=== PATIENT | male | born 1940 | race Caucasian/White ===

== ENCOUNTER 2020-02-22 21:08 | Emergency (ER) | payer OTHER ==
[2020-02-22 21:22] VITALS: BP 145/76; PULSE 81; TEMP 98.1; BMI 25.8
--- NOTE | 2020-02-23 06:56 | PDOC ---
Documentation entered by Carmen Friedman SCRIBE, acting as scribe for Meghna Phillips MD. Meghna Phillips MD: This documentation has been prepared by the aayushibgrover, Carmen Friedman SCRIBE, under my direction and personally reviewed by me in its entirety. I confirm that the documentation accurately reflects all work, treatment, procedures, and medical decision making performed by me. History of Present Illness - General Chief Complaint: Pain Stated Complaint: groin pain Time Seen by Provider: 02/22/20 21:20 History Source: Patient Exam Limitations: No Limitations - History of Present Illness Initial Comments: 02/22/20 21:53 The patient is an 79-year-old male who presents to the emergency department with right groin pain. The patient reports he was seen in the ED on 02/18 for similar right groin pain, the patient reports he was given pain medication and had a CT abdomen/pelvis which was significant for fat-containing, bilateral inguinal hernia. The patient reports he felt better and was discharged home. The patient reports Saturday he was feeling fine, however, Saturday afternoon he felt mild pain to the right groin, which went away and returned today afternoon associated with the hernia bulging, which the patient was able to reduce himself. The patient reports the pain persisted to the evening, promoting the ED visit. PAST MEDICAL HISTORY: BPH and inguinal hernia. PAST SURGICAL HISTORY: Cholecystectomy FAMILY HISTORY: no pertinent history SOCIAL HISTORY: Pt lives along and is retired. MEDICATIONS: reviewed ALLERGIES: As per nursing notes PCP: Follow[facility] at [facility] Review of system: General: No fevers or chills, no weakness, no weight loss HEENT: No change in vision. No sore throat. No ear pain CardioVascular: No chest pain or shortness of breath Respiratory:No cough, or wheezing. Gastrointestinal: no nausea, vomiting, diarrhea or constipation, No rectal bleeding Genitourinary: +right groin pain. No dysuria, hematuria, or frequency Musculoskeletal: No joint or muscle pain or swelling Neurologic: No headache, vertigo, dizziness or loss of consciousness Psychiatric: nor depression Skin: No rashes or easy bruising Endocrine: no increased thirst or abnormal weight change Allergic: no skin or latex allergy All other systems reviewed and normal Physical exam: GENERAL: The patient is awake, alert, and fully oriented, in no acute distress. HEAD: Normal with no signs of trauma. EYES: Pupils equal, round and reactive to light, extraocular movements intact, sclera anicteric, conjunctiva clear. : +right inguinal area: there is a palpable hernia, easily reducible with gentle pressure. Pain resolved after the gentle reduction of the hernia. EXTREMITIES: Normal range of motion, no edema. NEUROLOGICAL: Normal speech, normal gait. PSYCH: Normal mood, normal affect. SKIN: Warm, Dry, normal turgor, no rashes or lesions noted. Assessment and plan: This is an 79-year-old male who has a right inguinal hernia that is intermittently bulging out. I was able to easily reduce the hernia and patient's discomfort resolved. Patient was told to buy a hernia truss and follow-up with a surgeon this week. Past History - Medical History Allergies/Adverse Reactions: Allergies Allergy/AdvReac Type Severity Reaction Status Date / Time No Known Allergies Allergy Verified 02/22/20 21:16 Home Medications: Ambulatory Orders NK [No Known Home Medication] 02/19/20 CVA: No COPD: No - Surgical History Cholecystectomy: Yes - Psycho-Social/Smoking History Smoking History: Never smoked Have you smoked in the past 12 months: No Information on smoking cessation initiated: No - Substance Abuse Hx (Audit-C & DAST Scrn) How often the patient has a drink containing alcohol: Never Score: In Men: 4 or > Positive; In Women: 3 or > Positive: 0 Screen Result (Pos requires Nsg. Audit-10AR): Negative *Physical Exam - Vital Signs Last Vital Signs Temp Pulse Resp BP Pulse Ox 98.1 F 81 16 145/76 100 02/22/20 21:18 02/22/20 21:18 02/22/20 21:18 02/22/20 21:18 02/22/20 21:18 Discharge - Discharge Information Problems reviewed: Yes Clinical Impression/Diagnosis: Right inguinal pain, Inguinal hernia Condition: Stable Disposition: HOME - Admission No - Follow up/Referral Referrals: Sheng Coker MD [Staff Physician] - - Patient Discharge Instructions Additional Instructions: Call Dr. Nixon in the morning and get an appointment for follow-up when you call Dr. Coker tell them you are here in the emergency department twice for a hernia that was reduced. Purchase a hernia truss and wear it. If the hernia comes out lay down and put gentle pressure on it to reduce it. Return to the emergency department immediately with ANY new, persistent or worsening symptoms. Continue any medications as previously prescribed by your physician. You should follow up with your primary doctor as soon as possible regarding today's emergency department visit. . Please make sure your doctor reviews the results of your emergency evaluation. Thank you for coming to the Emergency Department today for your care. It was a pleasure to see you today. Please note that your evaluation is INCOMPLETE until you follow-up with your doctor. - Post Discharge Activity
== END 2020-02-22 22:10 | disposition home or self-care (01) ==
LOC: FER 21:08
DX: K40.90 Unilateral inguinal hernia, without obstruction or gangrene, not specified as recurrent (principal)
CPT/HCPCS: 99283-25; U0003

== ENCOUNTER 2020-03-09 05:48 | Day surgery (SDC) | payer OTHER ==
--- NOTE | 2020-02-26 10:07 | HP ---
DATE OF ADMISSION: 03/02/2020 REASON FOR ADMISSION: Bilateral inguinal hernias. HISTORY: This is an 79-year-old gentleman who was recently seen at [facility] for an incarcerated right inguinal hernia. He was subsequently reduced, and he also re-presented within a short period of time after that reduction. He underwent a CAT scan of the abdomen and pelvis that demonstrated bilateral fat-containing inguinal hernias as well as a large hiatal hernia (patient asymptomatic from his hiatal hernia). He is here today to undergo hernia repair. Patient denies a change in bowel and urine habits. He has had no nausea, no vomiting PAST MEDICAL HISTORY: He denies coronary artery disease, hypertension, and diabetes. PAST SURGICAL HISTORY: He has had a cholecystectomy (open) in the . ALLERGIES: None. MEDICATIONS: None. SOCIAL HISTORY: He does not smoke, does not drink. No history of drug use. PHYSICAL EXAMINATION: Patient examined in the erect and supine position. He has bilateral inguinal hernias. The clinical findings for these hernias are paucity of findings. The scrotum and testicles within normal limits. Testicles slightly atrophic bilaterally. He has a right upper quadrant scar. The remainder of the abdominal examination is unremarkable. IMPRESSION/PLAN: Bilateral inguinal hernias, hiatal hernia: This is an 79-year-old gentleman who was symptomatic from his right inguinal hernia. CT scan demonstrates 2 hernias. Given the fact that he acutely incarcerated within a short period of time x2, I would recommend repairing these hernias at this time. This will be done laparoscopically. Mesh will be used as well. I have discussed the various surgical approaches, mesh and without mesh, with this gentleman. He understands that he is having bilateral laparoscopic inguinal hernias with mesh. If the surgery cannot be done laparoscopically, he will be converted to an open right inguinal hernia repair. The indications, alternatives, and complications of the procedure were discussed at length. Questions have been answered. With regard to his hiatal hernia, I have discussed the pros and cons of further evaluating this and consideration for repair, but given the fact that he is asymptomatic and he is 79 years old, he has opted not to proceed with any intervention, and therefore no further workup is needed at this point. JOVAN AGUERO M.D. [id number] MTDAntwan
[2020-03-08 12:57] VITALS: BMI 25.1
[2020-03-09] MEDS ORDERED: MIDAZOLAM HCL 2 MG/2 ML SINGLE DOSE VIAL ONE (06:50)
[2020-03-09] MEDS ORDERED: BUPIVACAINE HCL/PF 0.5% (5 MG/ML) 30 ML VIAL IJ ONE (06:50)
[2020-03-09] MEDS ORDERED: TAMSULOSIN HCL 0.4 MG CAP ONE (06:54)
[2020-03-09] MEDS ORDERED: LIDOCAINE HCL/PF 2% SDV 5ML VIAL ONE (07:26)
[2020-03-09] MEDS ORDERED: ceFAZolin SODIUM 1 GM VIAL ONE (07:26)
[2020-03-09] MEDS ORDERED: PROPOFOL 20 ML ONE (07:27)
[2020-03-09] MEDS ORDERED: ROCURONIUM BROMIDE 50 MG/5 ML SYRINGE ONE (07:27)
[2020-03-09] MEDS ORDERED: SUCCINYLCHOLINE CHLORIDE 200 MG/10 ML SYRINGE ONE (07:27)
[2020-03-09] MEDS ORDERED: DEXAMETHASONE SOD PHOSPHATE/PF 10 MG/ML SDV ONE (07:42)
[2020-03-09] MEDS ORDERED: DEXAMETHASONE SOD PHOSPHATE 4 MG/1 ML VIAL ONE (08:10)
[2020-03-09] MEDS ORDERED: ONDANSETRON 4 MG/2 ML VIAL ONE (08:10)
[2020-03-09] MEDS ORDERED: NEOSTIGMINE METHYLSULFATE 0.5 MG/ML - 10 ML MDV ONE (08:38)
[2020-03-09] MEDS ORDERED: GLYCOPYRROLATE 0.2 MG/1 ML VIAL ONE (08:39)
[2020-03-09 10:26] VITALS: TEMP 98.2
[2020-03-09] MEDS ORDERED: oxyCODONE HCL 5 MG TABLET ONE (10:45)
[2020-03-09] MEDS ORDERED: oxyCODONE HCL 5 MG TABLET PO PRN (11:12)
[2020-03-09] MEDS ORDERED: ONDANSETRON 4 MG/2 ML VIAL IVPUSH PRN (11:12)
[2020-03-09] MEDS ORDERED: LACTATED RINGERS SOLUTION 1,000 ML IV SCH (11:15)
[2020-03-09 14:36] VITALS: BP 158/84; PULSE 56
== END 2020-03-09 14:15 | disposition home or self-care (01) ==
LOC: FASU 05:48
PROVIDERS: ATTEND Surgery
PROC: 0YUA4JZ Supplement Bilateral Inguinal Region with Synthetic Substitute, Percutaneous Endoscopic Approach (ICD-10-PCS; principal; 2020-03-09 08:18)
DX: K40.20 Bilateral inguinal hernia, without obstruction or gangrene, not specified as recurrent (principal)
CPT/HCPCS: 94760

== ENCOUNTER 2020-03-14 13:11 | Inpatient (IN) | payer OTHER ==
--- NOTE | 2020-03-14 13:29 | PDOC ---
Rapid Medical Evaluation Time Seen by Provider: 03/14/20 13:25 Medical Evaluation: Allergies Allergy/AdvReac Type Severity Reaction Status Date / Time No Known Allergies Allergy Verified 03/14/20 13:25 03/14/20 13:26 Pt presents for evaluation of weakness and falling starting last night. Exam: In a wheelchair NAD, breathing comfortably on RA Orders: labs, EKG, IV Pt to proceed to the ER for further evaluation Discharge Disposition - Diagnosis Weakness - Referrals - Patient Instructions - Post Discharge Activity
[2020-03-14 14:36] LABS: BASO % 0.4 % (0-2.0); EOS % 0.2 % (0-4.5); HEMATOCRIT 35.1 % (35.4-49); HEMOGLOBIN 11.8 GM/dL (11.7-16.9); LYMPH % 3.6 % (8-40); MCHC 33.5 g/dl (32.0-35.9); MEAN CELL VOLUME 89.6 fl (80-96); MEAN PLT VOLUME 8.4 fl (7.5-11.1); MONO % 9.9 % (3.8-10.2); NEUT % 85.9 % (42.8-82.8); PLATELET COUNT 167 K/MM3 (134-434); RBC 3.92 M/mm3 (4.00-5.60); RDW 14.4 % (11.9-15.9); WHITE BLOOD COUNT 10.8 K/mm3 (4.0-10.0)
[2020-03-14 14:44] LABS: INR 1.24 (0.83-1.09); PROTHROMBIN TIME (PATIENT) 14.7 SEC (9.7-13.0)
--- NOTE | 2020-03-14 14:46 | PDOC ---
History of Present Illness - General Chief Complaint: Weakness Stated Complaint: FALL/PAIN Time Seen by Provider: 03/14/20 13:25 History Source: Patient Exam Limitations: No Limitations - History of Present Illness Initial Comments: 03/14/20 14:23 HPI: 79 yo M pmh BPH, recent ventral hernia repair (POD2?), presenting with multiple falls, generalized weakness, and difficulty collecting his thoughts for 1 day. Patient lives alone, reports several falls but cannot explain where he struck the ground, endorses "lots of pain" but cannot explain where and says he can't quantify it right now. Neighbors found him on the floor and helped him up and he walked in through triage. Reports diffuse weakness and unsteady gait - "I don't think I could walk right now." Denies head trauma or LOC, denies chest pain or palpitations, denies urinary symptoms, denies fevers or chills, nausea or vomiting. Taking an unknown pain medication post op every 4 hours. All: NKDA Meds: Per chart PSH: Hernia repair PMH: BPH SHx: Lives at home alone Past History - Travel History Traveled outside of the country in the last 30 days: No Close contact w/someone who was outside of country & ill: No - Medical History Allergies/Adverse Reactions: Allergies Allergy/AdvReac Type Severity Reaction Status Date / Time No Known Allergies Allergy Verified 03/14/20 13:25 Home Medications: Ambulatory Orders Unobtainable 03/14/20 Anemia: No Asthma: No Cancer: No Cardiac Disorders: No CVA: No COPD: No CHF: No Dementia: No Diabetes: No GI Disorders: No Disorders: Yes (BPH) HTN: No Hypercholesterolemia: No Liver Disease: No Seizures: No Thyroid Disease: No - Surgical History Abdominal Surgery: No Appendectomy: No Cardiac Surgery: No Cholecystectomy: Yes Lung Surgery: No Neurologic Surgery: No Orthopedic Surgery: No - Immunization History Immunization Up to Date: Yes - Psycho-Social/Smoking History Smoking History: Never smoked Have you smoked in the past 12 months: No - Substance Abuse Hx (Audit-C & DAST Scrn) How often the patient has a drink containing alcohol: Never Score: In Men: 4 or > Positive; In Women: 3 or > Positive: 0 Screen Result (Pos requires Nsg. Audit-10AR): Negative In the last yr the pt used illegal drug/Rx for NonMed reason: No Score: Yes response is considered Positive: 0 Screen Result (Positive result requires Nsg. DAST-10): Negative Review of Systems - Review of Systems Able to Perform ROS?: Yes (Patient answers only some) Is the patient limited Lithuanian proficient: Yes Constitutional: Yes: Weakness. No: Chills, Fever HEENTM: No: Recent change in vision, Nose Pain, Tinnitus, Hearing Loss Respiratory: No: Cough, Shortness of Breath Cardiac (ROS): Yes: Edema. No: Chest Pain, Lightheadedness, Palpitations, Chest Tightness ABD/GI: No: Constipated, Diarrhea, Nausea, Vomiting : No: Burning, Dysuria, Frequency Musculoskeletal: Yes: Back Pain, Muscle Pain, Neck Pain Integumentary: Yes: Bruising. No: Pruritus, Rash Neurological: No: Headache, Numbness, Tingling, Weakness Psychiatric: No: Stressors, Change in Appetite Endocrine: No: Increased Thirst, Increased Urine, Change in Weight Hematologic/Lymphatic: No: Anemia, Blood Clots, Easy Bleeding All Other Systems: Reviewed and Negative *Physical Exam - Vital Signs Last Vital Signs Temp Pulse Resp BP Pulse Ox 98.2 F 92 H 18 123/87 95 03/14/20 13:25 03/14/20 13:25 03/14/20 13:25 03/14/20 13:25 03/14/20 13:25 - Physical Exam 03/14/20 15:02 Vitals reviewed, AFVSS GEN: Appears unwell, slumped to the side, slow movements and thoughts. Appears stated age, NAD. AAOx3. HEENT: NCAT, EOMI, PERRL. Sclera anicteric, non-injected. No facial asymmetry. Moist mucous membranes. Normal voice. Trachea midline. CV: RRR, S1/S2, no murmurs / rubs / gallops appreciated. LUNG: CTABL, normal work of breathing. No wheezes, rales, rhonchi. No cough. Speaking full sentences. GI: Soft, NTND, +BS, no guarding, no rebound. No masses. EXTREMITIES: 2+ distal pulses. No clubbing / cyanosis. 2+ pitting edema to the knees bilaterally. No gross deformity in any extremity. SKIN: Warm, dry, no rashes appreciated, non-jaundiced. Ecchymosis around hernia repair site and small old/recent abrasion on right shoulder. PSYCH: Normal mood and affect. Cooperative and appropriate. Slow thoughts, states he is having trouble getting them together and processing questions and answers. NEURO: CN 2-12 intact. Moving all extremities equally with normal strength and sensation. Strength 5+ biceps, triceps, intrinsic hand muscles, hip flexors / extensors / foot dorsiflexion / plantarflexion. Patient is slumped to the right, can sit upright but leans over again (pain vs general weakness? difficulty specifying) Sensation normal throughout to light touch Reflexes not assessed Romberg negative [id number] normal (+No dysmetria) right side slower but accurate Gait unwitnessed, patient currently unwilling to attempt ambulation ED Treatment Course - LABORATORY CBC & Chemistry Diagram: 03/14/20 14:00 03/14/20 14:00 Medical Decision Making - Medical Decision Making 03/14/20 15:00 79 yo M pmh BPH, recent ventral hernia repair (POD2?), presenting with multiple falls, generalized weakness, and difficulty collecting his thoughts for 1 day. History difficult to obtain due to clinical condition. Exam notable for afebrile, stable vitals (maybe relative hypotension and tachycardia), slow movements, leaning to the right, normal neurologic exam but disorganized thoughts, LE edema bilaterally, diffuse abdominal and chest wall tenderness, non-tender surgical site / no signs of soft tissue infection, alert and oriented x3. Together concerning for infectious, traumatic, post-surgical, metabolic, vascular causes. DDX: encephalopathy NOS, UTI / pyelo, intra-abdominal infection (deep site infection / abscess), medication effect from post-op pain medications (although normal pupils), syncope (dysrhythmia), r/o CVA. Patient lives alone, and is unsafe for discharge, regardless of the results of the following he will require admission. - CBC, CMP, Coags, Lactate, BCx, UA, UCx, COVID - NCHCT, Cervical spine, Chest / Abdomen / Pelvis after renal function - EKG Anticipated Dispo Admit (surgery vs medicine pending work-up) 03/14/20 16:[address] Kellogg, appreciate recs. Renal/Bladder US. Grady insert with clamp at 700-800ccs then wait [address] scans all changed to non-contrast 03/14/20 17:48 Plan for non-emergent urology consult, surgical evaluation Discharge - Discharge Information Problems reviewed: Yes Clinical Impression/Diagnosis: Weakness Acute renal failure Qualifiers: Acute renal failure type: unspecified Qualified Code(s): N17.9 - Acute kidney failure, unspecified Condition: Guarded - Admission Yes - Follow up/Referral - Patient Discharge Instructions - Post Discharge Activity
[2020-03-14] MEDS ORDERED: ACETAMINOPHEN 1000 MG/100 ML VIAL (NON FORMULARY) IVPB ONE (14:47)
[2020-03-14] MEDS ORDERED: ACETAMINOPHEN INJECTION 100 ML IVPB ONE (15:05)
[2020-03-14 15:06] LABS: BILIRUBIN,TOTAL 0.8 mg/dL (0.2-1); BLOOD UREA NITROGEN 83.9 mg/dL (7-18); CALCIUM 8.4 mg/dL (8.5-10.1); CREATININE 6.7 mg/dL (0.55-1.3); MAGNESIUM 2.6 mg/dL (1.8-2.4); POTASSIUM 3.8 mmol/L (3.5-5.1); TOT PROT 6.7 g/dl (6.4-8.2)
[2020-03-14] MEDS ORDERED: SODIUM CHLORIDE 0.9% 500 ML INFUS.BAG IV ONE ×2 (15:35→15:38)
--- NOTE | 2020-03-14 16:03 | PDOC ---
Documentation entered by Gi Chapa SCRIBE, acting as scribe for Chance Pierre MD. Chance Pierre MD: This documentation has been prepared by the aayushibEduard ness Ana, SCRIBE, under my direction and personally reviewed by me in its entirety. I confirm that the documentation accurately reflects all work, treatment, procedures, and medical decision making performed by me. Attending Attestation - Resident Resident Name: DereckEric - ED Attending Attestation I have performed the following: I have examined & evaluated the patient, The case was reviewed & discussed with the resident, I agree w/resident's findings & plan, Exceptions are as noted - HPI HPI: 03/14/20 14:41 Patient is an 79 year old male with a significant past medical history of BPH and recent ventral hernia repair, who presents to the ED with multiple falls, generalized weakness, and difficulty collecting his thoughts x1 day. Patient's neighbors found patient on the floor and brought him into ER. Patient stated he is in "a lot of pain" but cannot describe the pain and reports falls but cannot recall how or where they occurred. Patient denies: head trauma, loss of consciousness, fever, chills, nausea, vomiting. chest pain palpitations, any urinary issues, or any other related symptoms. Allergies: NKDA Patient lives alone at home. - Physicial Exam PE: 03/14/20 15:12 See resident exam. - Medical Decision Making 03/14/20 16:09 79 M with weakness, multiple falls. No focal neuro deficits on exam. - Labs - CT head - Likel admit Discharge - Discharge Information Problems reviewed: Yes Clinical Impression/Diagnosis: Weakness, Falls Acute renal failure Qualifiers: Acute renal failure type: unspecified Qualified Code(s): N17.9 - Acute kidney failure, unspecified Condition: Guarded - Follow up/Referral - Patient Discharge Instructions - Post Discharge Activity
--- NOTE | 2020-03-14 18:06 | CONSULT ---
Consult Consult Specialty:: Nephrology Reason for Consultation:: MAXWELL - History of Present Illness Chief Complaint: weakness and confusion History of Present Illness: Pt is an 79 year old male with pmhx of ventral hernia repair pod2 who presents to the ER with falls and confusion. 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 He denies history of ckd. He says that he has been taking nsaids. I was called to evaluate him. Chan was placed and he put out about 1700 cc of urine so far. There was bilateral hydro on the ultrasound. He denies shortness of breath. he does complain of lower ext edema. - History Source History Provided By: Patient, Medical Record - Smoking History Smoking history: Never smoked Have you smoked in the past 12 months: No Home Medications - Allergies Allergies/Adverse Reactions: Allergies Allergy/AdvReac Type Severity Reaction Status Date / Time No Known Allergies Allergy Verified 03/14/20 13:25 - Home Medications Home Medications: Ambulatory Orders Unobtainable 03/14/20 Family Medical History Family History: Denies Review of Systems - Review of Systems Constitutional: reports: Loss of Appetite, Weakness Eyes: reports: No Symptoms HENT: reports: No Symptoms Neck: reports: No Symptoms Cardiovascular: reports: No Symptoms Respiratory: reports: No Symptoms Gastrointestinal: reports: No Symptoms Genitourinary: reports: No Symptoms Musculoskeletal: reports: No Symptoms Integumentary: reports: No Symptoms Neurological: reports: No Symptoms Endocrine: reports: No Symptoms Physical Exam Vital Signs: Vital Signs Temperature 98.2 F 03/14/20 13:25 Pulse Rate 92 H 03/14/20 13:25 Respiratory Rate 18 03/14/20 13:25 Blood Pressure 123/87 03/14/20 13:25 O2 Sat by Pulse Oximetry (%) 95 03/14/20 13:25 Constitutional: Yes: Calm Eyes: Yes: Conjunctiva Clear HENT: Yes: Atraumatic Cardiovascular: Yes: S1, S2 Respiratory: Yes: CTA Bilaterally Gastrointestinal: Yes: Soft Renal/: Yes: Chan Present, Scrotal Edema, Other (echymosis on scrotum) Edema: Yes Edema: LLE: 1+, RLE: 1+ Neurological: Yes: Confusion Labs: CBC, BMP 03/14/20 14:00 03/14/20 14:00 Imaging - Results Ultrasound: Report Reviewed Problem List - Problems (1) Acute renal failure Code(s): N17.9 - ACUTE KIDNEY FAILURE, UNSPECIFIED Qualifiers: Acute renal failure type: unspecified Qualified Code(s): N17.9 - Acute kidney failure, unspecified (2) Weakness Code(s): R53.1 - WEAKNESS Assessment/Plan Laboratory Tests 03/14/20 03/14/20 14:00 14:00 WBC 10.8 H Hgb 11.8 Sodium 135 L Potassium 3.8 Chloride 101 Carbon Dioxide 18 L Anion Gap 16 BUN 83.9 H Creatinine 6.7 H Impression 1. MAXWELL 2. s/p hernia repair 3. hydronephrosis 4. urinary obstruction 5. nsaid use Plan - maintain chan, I just clamped it, unclamp in one hour, spoke to nurse - repeat labs in am - will start fluids - monitor for post obstructive diuresis - urology eval - surgery follow up - avoid nsaids - discussed with ER team - follow ct scan results
[2020-03-14] MEDS ORDERED: SODIUM CHLORIDE 1,000 ML IV SCH (18:15)
[2020-03-14 18:22] LABS: EPI CELLS 2 /uL (0-25.1); HYALINE CASTS 0 /uL (0-3.1); URINE APPEARANCE CLEAR; URINE BACTERIA 1 /uL (0-1359); URINE BILIRUBIN NEGATIVE (NEGATIVE); URINE COLOR YELLOW; URINE GLUCOSE (UA) TRACE (NEGATIVE); URINE KETONE NEGATIVE (NEGATIVE); URINE LEUK ESTERASE NEGATIVE (NEGATIVE); URINE NITRITE NEGATIVE (NEGATIVE); URINE PROTEIN NEGATIVE (NEGATIVE); URINE RBC 11 /uL (0-23.9); URINE UROBILINOGEN 0.2 mg/dL (0.2-1.0); URINE WBC 3 /uL (0-25.8)
--- NOTE | 2020-03-14 21:39 | PN ---
Teaching Attending Note ATTENDING PHYSICIAN STATEMENT I saw and evaluated the patient. I reviewed the resident's note and discussed the case with the resident. I agree with the resident's findings and plan as documented. SUBJECTIVE: 79 year old male with a significant past medical history of BPH and recent ventral hernia repair, who presents to the ED with multiple falls, confusion, generalized weakness. He was found on the floors by his neighbour. Patient is very poor historian due to currant medical condition. He c/o generalized body aches. + NSAIDS use Denies chest pain, focal weakness, shortness of breath, head trauma, LOC, no palpitations, nausea,vomiting, fever OBJECTIVE: Vital Signs - 24 hr 03/14/20 03/14/20 03/14/20 13:25 15:10 18:10 Temperature 98.2 F 98.6 F Pulse Rate 92 H Pulse Rate [ 74 Right] Respiratory 18 18 Rate Blood Pressure 123/87 Blood Pressure 117/68 [Right Arm] O2 Sat by Pulse 95 98 96 Oximetry (%) GENERAL: not in acute sistress HEAD: No signs of trauma, normocephalic, atraumatic EYES: PERRLA, EOMI, sclera anicteric, conjunctiva clear ENT: Auricles normal inspection, hearing grossly normal, nares patent, oropharynx clear without exudates. Moist mucosa NECK: Normal ROM, supple, no lymphadenopathy, JVD, or masses HEART: Regular rate and rhythm, normal S1 and S2, no murmurs, rubs or gallops, peripheral pulses normal and equal bilaterally. LUNGS: No distress, speaks full sentences, clear to auscultation bilaterally ABDOMEN: Soft, nontender, normoactive bowel sounds. No guarding, no rebound. No masses EXTREMITIES: Normal inspection, Normal range of motion, [peripheral pulses palpable, B/L pitting edema 2+ NEUROLOGICAL: A&o x 3 no focal sensorimotor deficits SKIN: Warm, Dry, normal turgor, no rashes or lesions noted Laboratory Results - last 24 hr 03/14/20 03/14/20 03/14/20 14:00 14:00 14:00 WBC 10.8 H RBC 3.92 L Hgb 11.8 Hct 35.1 L MCV 89.6 MCH 30.0 MCHC 33.5 RDW 14.4 Plt Count 167 MPV 8.4 Absolute Neuts (auto) 9.3 H Neutrophils % 85.9 H Lymphocytes % 3.6 L Monocytes % 9.9 Eosinophils % 0.2 Basophils % 0.4 Nucleated RBC % 0 PT with INR 14.70 H INR 1.24 H Sodium 135 L Potassium 3.8 Chloride 101 Carbon Dioxide 18 L Anion Gap 16 BUN 83.9 H Creatinine 6.7 H Est GFR (CKD-EPI)AfAm 8.17 Est GFR (CKD-EPI)NonAf 7.05 Random Glucose 138 H Lactic Acid Calcium 8.4 L Magnesium 2.6 H Total Bilirubin 0.8 AST 44 H ALT 15 Alkaline Phosphatase 84 Creatine Kinase 1456 H Creatine Kinase Index 1.4 CK-MB (CK-2) 20.9 H Troponin I 0.03 Total Protein 6.7 Albumin 3.0 L Urine Color Urine Appearance Urine pH Ur Specific Moran Urine Protein Urine Glucose (UA) Urine Ketones Urine Blood Urine Nitrite Urine Bilirubin Urine Urobilinogen Ur Leukocyte Esterase Urine WBC (Auto) Urine RBC (Auto) Urine Casts (Auto) U Epithel Cells (Auto) Urine Bacteria (Auto) 03/14/20 03/14/20 15:30 18:20 WBC RBC Hgb Hct MCV MCH MCHC RDW Plt Count MPV Absolute Neuts (auto) Neutrophils % Lymphocytes % Monocytes % Eosinophils % Basophils % Nucleated RBC % PT with INR INR Sodium Potassium Chloride Carbon Dioxide Anion Gap BUN Creatinine Est GFR (CKD-EPI)AfAm Est GFR (CKD-EPI)NonAf Random Glucose Lactic Acid 1.2 Calcium Magnesium Total Bilirubin AST ALT Alkaline Phosphatase Creatine Kinase Creatine Kinase Index CK-MB (CK-2) Troponin I Total Protein Albumin Urine Color Yellow Urine Appearance Clear Urine pH 5.0 Ur Specific Moran 1.012 Urine Protein Negative Urine Glucose (UA) Trace Urine Ketones Negative Urine Blood 1+ H Urine Nitrite Negative Urine Bilirubin Negative Urine Urobilinogen 0.2 Ur Leukocyte Esterase Negative Urine WBC (Auto) 3 Urine RBC (Auto) 11 Urine Casts (Auto) 0 U Epithel Cells (Auto) 2 Urine Bacteria (Auto) 1 ASSESSMENT AND PLAN: Acute encephalopathy likley uremic MAXWELL - obstructive uropathy - urinaru obstruction hydronephrosis Rhabdomyolysis - likely traumatic - multiple falls may also contributing to MAXWELL functional decline Dehydration Admit to floor Keep chan strict intake output s/0 1700 ml drainage, nephrology appreciated urology eval surgery follow up IV hydration Avoids NSAIDS Ct abd reviewed. doubt infectious process at this time repeat labs in AM CMP, CPK PT/rehab
[2020-03-15] MEDS: HEPARIN NA (PORCINE) 5,000 UNITS/ML 1ML VIAL SQ SCH ×4 (00:32→23:05)
[2020-03-15 02:51] VITALS: BMI 24.8
--- NOTE | 2020-03-15 05:40 | HP ---
CHIEF COMPLAINT: multiple falls, weakness, difficulties collecting thoughts PCP: [facility] HISTORY OF PRESENT ILLNESS: 79yo M with PMHx of BPH ([facility] - [facility]), POD5 from b/l indirect inguinal hernia repair ([facility], 03/09/2020) presenting with multiple falls, weakness, and difficulties collecting thoughts. He was found by neighbor on floor of house who brought him to the hospital. In the ED, patient was found to be renally obstructed. Takes a prostate widening medication, starting with T and endorses R shoulder and rib area pain. Otherwise unable to gather further info as patient was difficult to arouse and conversation was remarkably tangential. When inquired about associated symptoms, patient denied feeling headaches, fevers, chills, SOB, CP and said that he is "feeling not bad, less bloaty" and "relaxed". ER course was notable for: (1) labs: WBC 10.8 (85.9%), Cr 6.7 (1.0 baseline 02/19/20), LA 1.2 (2) head CT: neg acute, chronic Right cerebella infarct, punctateLeft basal ganglia infarct (3) spine CT: mod-large right paramedian C4-C5 disc herniation, partial imaging of Right pleural effusion (4) chest/abd/pel CT: marked enlarged prostate. Right perirenal soft tissue stranding. Interval development of small amount of fluid accumulationalong the Right anterior and posterior pararenal fasciae. Interval development of mild nonspecific soft tissue stranding adjacent to the inferior border of the cecum. Small amount of subcutaneous air is visualized along the Right anterior pelvis. Small hepatic cysts. S/P cholecystectomy. Dilated CBD 1.4cm diameter. Mod to large hiatal hernia (5) renal US: min-mild b/l hydronephrosis Recent Travel: did not assess PAST MEDICAL HISTORY: per above PAST SURGICAL HISTORY: cholecystectomy Social and Family History: unable to assess due to tangentiality Allergies No Known Allergies Allergy (Verified 03/14/20 13:25) HOME MEDICATIONS: Home Medications Medication Instructions Recorded Unobtainable 03/14/20 REVIEW OF SYSTEMS per above PHYSICAL EXAMINATION Vital Signs - 24 hr 03/14/20 03/14/20 03/14/20 13:25 15:10 18:10 Temperature 98.2 F 98.6 F Pulse Rate 92 H Pulse Rate [ 74 Right] Respiratory 18 18 Rate Blood Pressure 123/87 Blood Pressure 117/68 [Right Arm] O2 Sat by Pulse 95 98 96 Oximetry (%) 03/15/20 03/15/20 03/15/20 02:21 02:22 02:36 Temperature 98.9 F 98.9 F Pulse Rate 64 64 Pulse Rate [ Right] Respiratory 20 20 Rate Blood Pressure 139/71 139/71 Blood Pressure [Right Arm] O2 Sat by Pulse 95 96 96 Oximetry (%) GENERAL: M, appears stated age, sleeping comfortably and difficult to arouse, not oriented to place and time, seems oriented to self but does not answer any questions clearly, no signs of acute distress HEAD: Normal with no signs of trauma EYES: PERRL, direct and consensual pupillary reflex intact NECK: limited range of motion with difficulties moving head to either side, no JVD appreciated (limited exam) LUNGS: CTAB bilaterally HEART: unable to clearly appreciate any heart sounds ABDOMEN: Soft, nontender, moderately distended, active bowel sounds, chan in place and wearing diaper EXTREMITIES: radial pulses palpable, central and peripheral weakness appreciated, LEs nonpitting edema, small dry scab wound under each great toe, plantar aspect of feet bilaterally erythematous with pronounced scaling NEUROLOGICAL: Cranial nerves II-XII grossly intact, normal speech PSYCHIATRIC: Cooperative but does not answer appropriately, tangential without returning to original point, no eye contact SKIN: Warm to touch, generalized pallor, no rashes or lesions noted Laboratory Results - last 24 hr 03/14/20 03/14/20 03/14/20 14:00 14:00 14:00 WBC 10.8 H RBC 3.92 L Hgb 11.8 Hct 35.1 L MCV 89.6 MCH 30.0 MCHC 33.5 RDW 14.4 Plt Count 167 MPV 8.4 Absolute Neuts (auto) 9.3 H Neutrophils % 85.9 H Lymphocytes % 3.6 L Monocytes % 9.9 Eosinophils % 0.2 Basophils % 0.4 Nucleated RBC % 0 PT with INR 14.70 H INR 1.24 H Sodium 135 L Potassium 3.8 Chloride 101 Carbon Dioxide 18 L Anion Gap 16 BUN 83.9 H Creatinine 6.7 H Est GFR (CKD-EPI)AfAm 8.17 Est GFR (CKD-EPI)NonAf 7.05 Random Glucose 138 H Lactic Acid Calcium 8.4 L Magnesium 2.6 H Total Bilirubin 0.8 AST 44 H ALT 15 Alkaline Phosphatase 84 Creatine Kinase 1456 H Creatine Kinase Index 1.4 CK-MB (CK-2) 20.9 H Troponin I 0.03 Total Protein 6.7 Albumin 3.0 L Urine Color Urine Appearance Urine pH Ur Specific Dante Urine Protein Urine Glucose (UA) Urine Ketones Urine Blood Urine Nitrite Urine Bilirubin Urine Urobilinogen Ur Leukocyte Esterase Urine WBC (Auto) Urine RBC (Auto) Urine Casts (Auto) U Epithel Cells (Auto) Urine Bacteria (Auto) 03/14/20 03/14/20 15:30 18:20 WBC RBC Hgb Hct MCV MCH MCHC RDW Plt Count MPV Absolute Neuts (auto) Neutrophils % Lymphocytes % Monocytes % Eosinophils % Basophils % Nucleated RBC % PT with INR INR Sodium Potassium Chloride Carbon Dioxide Anion Gap BUN Creatinine Est GFR (CKD-EPI)AfAm Est GFR (CKD-EPI)NonAf Random Glucose Lactic Acid 1.2 Calcium Magnesium Total Bilirubin AST ALT Alkaline Phosphatase Creatine Kinase Creatine Kinase Index CK-MB (CK-2) Troponin I Total Protein Albumin Urine Color Yellow Urine Appearance Clear Urine pH 5.0 Ur Specific Dante 1.012 Urine Protein Negative Urine Glucose (UA) Trace Urine Ketones Negative Urine Blood 1+ H Urine Nitrite Negative Urine Bilirubin Negative Urine Urobilinogen 0.2 Ur Leukocyte Esterase Negative Urine WBC (Auto) 3 Urine RBC (Auto) 11 Urine Casts (Auto) 0 U Epithel Cells (Auto) 2 Urine Bacteria (Auto) 1 ASSESSMENT/PLAN: 79yo M with PMHx of BPH ([facility]), POD5 from b/l indirect inguinal hernia repair ([facility], 03/09/2020) presenting with multiple falls, weakness, and difficulties collecting thoughts. ED workup was remarkable for Cr 6.7 and 1400cc urine output s/p chan insertion, and patient was admitted for MAXWELL 2/2 to urinary obstruction in setting of confusion. uremic encephalopathy 2/2 to urinary obstruction likely 2/2 to BPH patient received 1g ofirmev, 25mcg fentanyl, 0.4mg tamsulosin - continue gentle hydration 75cc/h NS - nephrology consulted - appreciate recs - consult urology - strict I/O - keep chan catheter - continue monitoring MS - no home meds as per [facility]. Re-confirm home meds in am as patient seems to be taking tamsulosin at home - may consider standing order for tamsulosin #MAXWELL 2/2 to urinary obstruction likely 2/2 to BPH BUN 83.9, Cr 6.7 (1.0 baseline) - continue gentle hydration - continue chan catheter #recent bilateral indirect inguinal hernia repair ecchymosis overlying lower abdominal and pelvic area - surgery f/u #elevated CK - rhabdo? - continue gentle hydration #PPX #FEN - 75cc/h NS - replete lytes PRN - renal diet #Dispo: continue monitoring in telemetry Family Medical History Family History: As Documented Visit type - Medication Review Med list reviewed for High Risk Meds patients 65 and older: Yes - Emergency Visit Emergency Visit: Yes ED Registration Date: 03/14/20 Care time: The patient presented to the Emergency Department on the above date and was hospitalized for further evaluation of their emergent condition. - New Patient This patient is new to me today: Yes Date on this admission: 03/15/20 - Critical Care Critical Care patient: No ATTENDING PHYSICIAN STATEMENT I saw and evaluated the patient. I reviewed the resident's note and discussed the case with the resident. I agree with the resident's findings and plan as documented. SUBJECTIVE: OBJECTIVE: ASSESSMENT AND PLAN:
[2020-03-15 08:25] LABS: BASO % 0.5 % (0-2.0); HEMATOCRIT 32.7 % (35.4-49); LYMPH % 10.5 % (8-40); MCH 29.9 pg (25.7-33.7); MCHC 33.7 g/dl (32.0-35.9); MEAN CELL VOLUME 88.7 fl (80-96); MEAN PLT VOLUME 8.1 fl (7.5-11.1); PLATELET COUNT 155 K/MM3 (134-434); RBC 3.68 M/mm3 (4.00-5.60); RDW 14.2 % (11.9-15.9); WHITE BLOOD COUNT 5.9 K/mm3 (4.0-10.0)
[2020-03-15 09:02] LABS: ALBUMIN 2.4 g/dl (3.4-5.0); BILIRUBIN,TOTAL 0.9 mg/dL (0.2-1); CALCIUM 8.1 mg/dL (8.5-10.1); MAGNESIUM 2.2 mg/dL (1.8-2.4); PHOSPHOROUS 2.6 mg/dL (2.5-4.9); POTASSIUM 3.8 mmol/L (3.5-5.1); TOT PROT 5.7 g/dl (6.4-8.2)
[2020-03-15 09:13] LABS: BLOOD UREA NITROGEN 44.7 mg/dL (7-18)
--- NOTE | 2020-03-15 09:43 | CONS ---
DATE OF CONSULTATION: DATE OF DICTATION: 03/15/2020 HISTORY: Patient is an 79-year-old male, presented to the emergency room on March 14, 2020, after multiple falls, weakness and altered mental status. The patient does have a history of prostatism. He is postop from bilateral inguinal hernia surgery repair by Sheng Coker MD. He was found on the floor in his home. In the emergency room he was found to be in obstructive azotemia. The patient was found to have a white count of 10.8, a creatinine of 6.7, lactic acid 1.2. CT of the abdomen and pelvis revealed a markedly enlarged prostate gland. There was right perirenal soft tissue stranding. The bladder was distended. Patient is status post a cholecystectomy. An ultrasound of the kidneys revealed bilateral hydronephrosis. He denies any tobacco or alcohol use. Denies any allergies. He does have a history of frequency, urgency, terminal dribbling and hesitancy. He denies any renal stones in the past or past prostate surgery. PHYSICAL EXAMINATION: Vital Signs: In the emergency room his temperature is 98.2, blood pressure 123/87, pulse oximetry 95. General: He is alert, awake and oriented at present. Abdomen: Soft. Genitourinary: A Grady catheter is patent. The scrotum reveals some swelling with ecchymosis. Suprapubic was not distended or tender. His liver enzymes were normal. IMPRESSION AT PRESENT: Obstructive azotemia with uremic encephalopathy. Patient has been on tamsulosin 0.4 mg daily. He had elevated CKs which could be due to rhabdomyolysis. Therefore, hydration is recommended. The patient's urine in the emergency room revealed 1+ blood and negative nitrites. A repeat BUN/creatinine revealed BUN down from 83 to 44 and his creatinine is down from 6.7 to 2. The impression at present is obstructive uropathy with azotemia. PLAN: Continue with Grady drainage. Monitor BUN and creatinine. Will recommend a cystoscopy after patient is medically stable and his renal function goes back to baseline. Will follow with you. BRIAN MOHR M.D. [id number]
[2020-03-15] MEDS: TAMSULOSIN HCL 0.4 MG CAP PO SCH (10:02)
--- NOTE | 2020-03-15 10:18 | EKG ---
Test Reason : Blood Pressure : / mmHG Vent. Rate : 084 BPM Atrial Rate : 084 BPM P-R Int : 164 ms QRS Dur : 100 ms QT Int : 384 ms P-R-T Axes : 054 006 000 degrees QTc Int : 453 ms POOR DATA QUALITY, INTERPRETATION MAY BE ADVERSELY AFFECTED NORMAL SINUS RHYTHM CANNOT RULE OUT INFERIOR INFARCT , AGE UNDETERMINED ABNORMAL ECG NO PREVIOUS ECGS AVAILABLE Confirmed by MD Donta, Jones ([id number]) on 03/15/2020 10:18:15 AM Referred By: Confirmed By:Jones Longo MD
[2020-03-15] MEDS: ASPIRIN 81 MG CHEWABLE TABLETS PO SCH (11:30)
[2020-03-15] MEDS: ZINC SULFATE 220 MG CAPSULE (FP) PO SCH ×2 (11:30→23:06)
--- NOTE | 2020-03-15 13:01 | CONSULT ---
<Linda Antony - Last Filed: 03/15/20 14:10> - Consultation REQUESTING PROVIDER: CONSULT REQUEST: We have been asked to surgically evaluate this patient for admission s/p inguinal hernia repairs. PCP: Mu Hamm MD HISTORY OF PRESENT ILLNESS: HPI: 79 yo M pmh BPH, s/p bilateral laparoscopic inguinal hernia repairs on 03/09/20,, still with pain and taking pain medication every 4 hours. Now POD #6 presented to ED for multiple falls, generalized weakness. Patient lives alone, reports several falls but cannot explain how or why he fell. His Neighbors found him on the floor and helped him up brought him to the ED. Reports diffuse weakness and unsteady gait Denies head trauma or LOC, denies chest pain or palpitations, denies urinary symptoms, denies fevers or chills, nausea or vomiting. Patient had chan placed on admission and he put out about 1700 cc of urine so far. There was bilateral hydro on the ultrasound. He does complain of lower ext edema. All: NKDA Meds: Per chart PSH: Hernia repair PMH: BPH SHx: Lives at home alone Past History - Travel History Traveled outside of the country in the last 30 days: No Close contact w/someone who was outside of country & ill: No - Medical History Allergies/Adverse Reactions: Allergies Allergy/AdvReac Type Severity Reaction Status Date / Time No Known Allergies Allergy Verified 03/14/20 13:25 Home Medications Medication Instructions Recorded Unobtainable 03/14/20 Anemia: No Asthma: No Cancer: No Cardiac Disorders: No CVA: No COPD: No CHF: No Dementia: No Diabetes: No GI Disorders: No Disorders: Yes (BPH) HTN: No Hypercholesterolemia: No Liver Disease: No Seizures: No Thyroid Disease: No - Surgical History Abdominal Surgery: No Appendectomy: No Cardiac Surgery: No Cholecystectomy: Yes Lung Surgery: No Neurologic Surgery: No Orthopedic Surgery: No - Immunization History Immunization Up to Date: Yes - Psycho-Social/Smoking History Smoking History: Never smoked Have you smoked in the past 12 months: No - Substance Abuse Hx (Audit-C & DAST Scrn) How often the patient has a drink containing alcohol: Never Score: In Men: 4 or > Positive; In Women: 3 or > Positive: 0 Screen Result (Pos requires Nsg. Audit-10AR): Negative In the last yr the pt used illegal drug/Rx for NonMed reason: No Score: Yes response is considered Positive: 0 Screen Result (Positive result requires Nsg. DAST-10): Negative - Review of Systems Able to Perform ROS?: Yes Is the patient limited Azerbaijani proficient: Yes Constitutional: Yes: Weakness. No: Chills, Fever HEENTM: No: Recent change in vision, Nose Pain, Tinnitus, Hearing Loss Respiratory: No: Cough, Shortness of Breath Cardiac (ROS): Yes: peripheral Edema. No: Chest Pain, Lightheadedness, Palpitations, Chest Tightness ABD/GI: No: Constipated, Diarrhea, Nausea, Vomiting : No: Burning, Dysuria, Frequency Musculoskeletal: Yes: Back Pain, Muscle Pain, Neck Pain Integumentary: Yes: Bruising. No: Pruritus, Rash Neurological: No: Headache, Numbness, Tingling, Psychiatric: No: Stressors, Change in Appetite Endocrine: No: Increased Thirst, Increased Urine, Change in Weight Hematologic/Lymphatic: No: Anemia, Blood Clots, Easy Bleeding All Other Systems: Reviewed and Negative *Physical Exam Vital Signs Temp 98.0 F 03/15/20 10:00 Pulse 68 03/15/20 10:00 Resp 20 03/15/20 10:00 BP 130/80 03/15/20 10:00 Pulse Ox 96 03/15/20 09:00 Intake & Output 03/14/20 03/15/20 03/15/20 23:59 11:59 23:59 Intake Total 0 Output Total 1400 3700 Balance -1400 -3700 Weight 175 lb 173 lb Intake: IV 0 Normal Saline - 1,000 ml 0 @ 75 mls/hr IV ASDIR [facility] Rx#:[id number] Output: Urine 1400 3700 Chan 1400 3700 Other: Voiding Method Indwelling Catheter Indwelling Catheter Bowel Movement No Height 5 ft 10 in 5 ft 10 in Body Mass Index (BMI) 25.1 24.8 Weight Measurement Method Built in [facility] Weight Measurement Method Est/Stated by Patient - Physical Exam GEN: A&Ox3, NAD HEENT: NCAT, Sclera anicteric, non-injected. No facial asymmetry. Moist mucous membranes. Normal voice. Trachea midline. LUNG: Unlabored resp on RA, no accessory muscle use. No cough. Speaking full sentences. GI: Large well healed scar on RUQ (open cholecystectomy) ABD: Soft, ND, with some bruising at around port sites, incisions healing well with surrounding tissue intact, some bruising but no tracking erythema or evidence of collection or active, d/c. minimal incisional pain appropriate to status. some scrotal edema and ecchymosis appropriate to status-both testicles present within the scrotum. chan in place +BS, no guarding, no rebound. No masses. EXTREMITIES: 2+ distal pulses. No clubbing / cyanosis. 2+ pitting edema to the knees bilaterally. No gross deformity in any extremity. SKIN: Warm, dry, no rashes appreciated, non-jaundiced. PSYCH: Normal mood and affect. Cooperative and appropriate. NEURO: CN 2-12 intact. Moving all extremities equally with normal strength and sensation. gait not observed. Abnormal Lab Results 03/14/20 03/14/20 03/14/20 14:00 14:00 14:00 WBC 10.8 H RBC 3.92 L Hgb Hct 35.1 L Absolute Neuts (auto) 9.3 H Neutrophils % 85.9 H Lymphocytes % 3.6 L PT with INR 14.70 H INR 1.24 H Sodium 135 L Chloride Carbon Dioxide 18 L BUN 83.9 H Creatinine 6.7 H Random Glucose 138 H Calcium 8.4 L Magnesium 2.6 H AST 44 H Creatine Kinase 1456 H CK-MB (CK-2) 20.9 H Total Protein Albumin 3.0 L Urine Blood 03/14/20 03/15/20 03/15/20 15:30 07:20 07:20 WBC RBC 3.68 L Hgb 11.0 L Hct 32.7 L Absolute Neuts (auto) Neutrophils % Lymphocytes % PT with INR INR Sodium Chloride 110 H Carbon Dioxide BUN 44.7 H Creatinine 2.0 H Random Glucose 66 L Calcium 8.1 L Magnesium AST 64 H Creatine Kinase 1609 H CK-MB (CK-2) 17.1 H Total Protein 5.7 L Albumin 2.4 L Urine Blood 1+ H PMHx: PSHx: Home Medications Medication Instructions Recorded Unobtainable 03/14/20 Allergies Allergy/AdvReac Type Severity Reaction Status Date / Time No Known Allergies Allergy Verified 03/14/20 13:25 REVIEW OF SYSTEMS: CONSTITUTIONAL: Absent: fever, chills, diaphoresis, generalized weakness, malaise, loss of appetite, weight change CARDIOVASCULAR: Absent: chest pain, syncope, palpitations, irregular heart rate, lightheadedness, peripheral edema RESPIRATORY: Absent: cough, shortness of breath, dyspnea with exertion, wheezing, stridor, hemoptysis GASTROINTESTINAL: Absent: abdominal pain, abdominal distension, nausea, vomiting, diarrhea, constipation, melena, hematochezia GENITOURINARY: Absent: dysuria, frequency, urgency, hesitancy, hematuria, flank pain, genital pain MUSCULOSKELETAL: Absent: myalgia, arthralgia, joint swelling, back pain, neck pain SKIN: Absent: rash, itching, pallor HEMATOLOGIC/IMMUNOLOGIC: Absent: easy bleeding, easy bruising, lymphadenopathy NEUROLOGIC: Absent: headache, focal weakness, paresthesias, dizziness, unsteady gait, seizure, mental status changes, bladder or bowel incontinence PSYCHIATRIC: Absent: anxiety, depression, suicidal or homicidal ideation, hallucinations. PHYSICAL EXAM: GENERAL: Awake, alert, and fully oriented, in no acute distress. HEAD: Normal with no signs of trauma. EYES: PERRL, sclera anicteric, conjunctiva clear. NECK: Normal ROM, supple without lymphadenopathy, JVD, or masses. LUNGS: Clear to auscultation bilat anteriorly. No wheezes, and no crackles. No accessory muscle use. HEART: Regular rate and rhythm. No murmurs ABDOMEN: Soft, nontender, not distended, normoactive bowel sounds, no guarding, no rebound, no masses. No organomegaly. MUSCULOSKELETAL: Normal ROM at all joints. No bony deformities or tenderness. No CVA tenderness. UPPER EXTREMITIES: 2+ pulses, warm, well-perfused. No cyanosis. Cap refill <2 seconds. No peripheral edema. LOWER EXTREMITIES: 2+ pulses, warm, well-perfused. No calf tenderness. No peripheral edema. NEUROLOGICAL: Normal speech, gait not observed. PSYCH: Cooperative. Good eye contact. Appropriate mood and affect. SKIN: Warm, dry, normal turgor, no rashes or lesions noted. Vital Signs Temperature 98.0 F 03/15/20 10:00 Pulse Rate 68 03/15/20 10:00 Respiratory Rate 20 03/15/20 10:00 Blood Pressure 130/80 03/15/20 10:00 O2 Sat by Pulse Oximetry (%) 96 03/15/20 09:00 Lab Results WBC 5.9 K/mm3 (4.0-10.0) 03/15/20 07:20 RBC 3.68 M/mm3 (4.00-5.60) L 03/15/20 07:20 Hgb 11.0 GM/dL (11.7-16.9) L 03/15/20 07:20 Hct 32.7 % (35.4-49) L 03/15/20 07:20 MCV 88.7 fl (80-96) 03/15/20 07:20 MCHC 33.7 g/dl (32.0-35.9) 03/15/20 07:20 RDW 14.2 % (11.9-15.9) 03/15/20 07:20 Plt Count 155 K/MM3 (134-434) 03/15/20 07:20 INR 1.24 (0.83-1.09) H 03/14/20 14:00 Sodium 144 mmol/L (136-145) 03/15/20 07:20 Potassium 3.8 mmol/L (3.5-5.1) 03/15/20 07:20 Chloride 110 mmol/L (98-107) H 03/15/20 07:20 Carbon Dioxide 22 mmol/L (21-32) 03/15/20 07:20 Anion Gap 11 MMOL/L (8-16) 03/15/20 07:20 BUN 44.7 mg/dL (7-18) H 03/15/20 07:20 Creatinine 2.0 mg/dL (0.55-1.3) H 03/15/20 07:20 Random Glucose 66 mg/dL (74-106) L 03/15/20 07:20 Calcium 8.1 mg/dL (8.5-10.1) L 03/15/20 07:20 CT chest/abdomen/pelvis: Compared to CT performed on 02/19/20 interval development of mild bilateral Hydroureteronephritis is seen to the level of the urinary bladder-secondary to recent urinary retention. marked enlarged prostate. Right perirenal soft tissue stranding. Interval development of small amount of fluid accumulation along the Right anterior and posterior pararenal fasciae. Interval development of mild nonspecific soft tiss ue stranding adjacent to the inferior border of the cecum. Small amount of subcutaneous air is visualized along the Right anterior pelvis. Small hepatic cysts. S/P cholecystectomy. Dilated CBD 1.4cm diameter. Mod to large hiatal hernia Renal US: min-mild b/l hydronephrosis Problem List - Problems (1) Acute renal failure Assessment/Plan: 79 yo M pmh BPH, recent ventral hernia repair (POD#6), presenting with multiple falls, generalized weakness, found to be in urinary retention with new urologic findings on CT scan-suspected obstructive azotemia with uremic encephalopathy. Current findings do not appear to be directly related to his recent surgery. No evidence for surgical intervention from general surgery at this time. -f/u renal and urology recs -continue medical management -re-consult general surgery as needed Evaluation and plan discussed with Dr Riley. n Code(s): N17.9 - ACUTE KIDNEY FAILURE, UNSPECIFIED Qualifiers: Acute renal failure type: unspecified Qualified Code(s): N17.9 - Acute kidney failure, unspecified <Jose Riley - Last Filed: 03/16/20 09:46> - Consultation REQUESTING PROVIDER: CONSULT REQUEST: We have been asked to surgically evaluate this patient for (specify). PCP:Mu Hamm MD HISTORY OF PRESENT ILLNESS: PMHx: PSHx: Home Medications Medication Instructions Recorded Unobtainable 03/14/20 Allergies Allergy/AdvReac Type Severity Reaction Status Date / Time No Known Allergies Allergy Verified 03/14/20 13:25 REVIEW OF SYSTEMS: CONSTITUTIONAL: Absent: fever, chills, diaphoresis, generalized weakness, malaise, loss of appetite, weight change CARDIOVASCULAR: Absent: chest pain, syncope, palpitations, irregular heart rate, lightheadedness, peripheral edema RESPIRATORY: Absent: cough, shortness of breath, dyspnea with exertion, wheezing, stridor, hemoptysis GASTROINTESTINAL: Absent: abdominal pain, abdominal distension, nausea, vomiting, diarrhea, co nstipation, melena, hematochezia GENITOURINARY: Absent: dysuria, frequency, urgency, hesitancy, hematuria, flank pain, genital pain MUSCULOSKELETAL: Absent: myalgia, arthralgia, joint swelling, back pain, neck pain SKIN: Absent: rash, itching, pallor HEMATOLOGIC/IMMUNOLOGIC: Absent: easy bleeding, easy bruising, lymphadenopathy NEUROLOGIC: Absent: headache, focal weakness, paresthesias, dizziness, unsteady gait, seizure, mental status changes, bladder or bowel incontinence PSYCHIATRIC: Absent: anxiety, depression, suicidal or homicidal ideation, hallucinations. PHYSICAL EXAM: GENERAL: Awake, alert, and fully oriented, in no acute distress. HEAD: Normal with no signs of trauma. EYES: PERRL, sclera anicteric, conjunctiva clear. NECK: Normal ROM, supple without lymphadenopathy, JVD, or masses. LUNGS: Clear to auscultation bilat anteriorly. No wheezes, and no crackles. No accessory muscle use. HEART: Regular rate and rhythm. No murmurs ABDOMEN: Soft, nontender, not distended, normoactive bowel sounds, no guarding, no rebound, no masses. No organomegaly. MUSCULOSKELETAL: Normal ROM at all joints. No bony deformities or tenderness. No CVA tenderness. UPPER EXTREMITIES: 2+ pulses, warm, well-perfused. No cyanosis. Cap refill <2 seconds. No peripheral edema. LOWER EXTREMITIES: 2+ pulses, warm, well-perfused. No calf tenderness. No peripheral edema. NEUROLOGICAL: Normal speech, gait not observed. PSYCH: Cooperative. Good eye contact. Appropriate mood and affect. SKIN: Warm, dry, normal turgor, no rashes or lesions noted. Vital Signs Temperature 98.7 F 03/16/20 07:22 Pulse Rate 57 L 03/16/20 07:22 Respiratory Rate 20 03/16/20 07:22 Blood Pressure 143/79 03/16/20 07:22 O2 Sat by Pulse Oximetry (%) 93 L 03/16/20 07:22 Lab Results WBC 4.3 K/mm3 (4.0-10.0) 03/16/20 07:30 RBC 3.51 M/mm3 (4.00-5.60) L 03/16/20 07:30 Hgb 10.5 GM/dL (11.7-16.9) L 03/16/20 07:30 Hct 31.2 % (35.4-49) L 03/16/20 07:30 MCV 88.9 fl (80-96) 03/16/20 07:30 MCHC 33.5 g/dl (32.0-35.9) 03/16/20 07:30 RDW 14.1 % (11.9-15.9) 03/16/20 07:30 Plt Count 161 K/MM3 (134-434) 03/16/20 07:30 INR 1.24 (0.83-1.09) H 03/14/20 14:00 Sodium 141 mmol/L (136-145) 03/16/20 07:30 Potassium 3.5 mmol/L (3.5-5.1) 03/16/20 07:30 Chloride 110 mmol/L (98-107) H 03/16/20 07:30 Carbon Dioxide 25 mmol/L (21-32) 03/16/20 07:30 Anion Gap 6 MMOL/L (8-16) L 03/16/20 07:30 BUN 19.9 mg/dL (7-18) H 03/16/20 07:30 Creatinine 0.7 mg/dL (0.55-1.3) 03/16/20 07:30 Random Glucose 89 mg/dL (74-106) 03/16/20 07:30 Calcium 7.3 mg/dL (8.5-10.1) L 03/16/20 07:30 surgery- attending pt seen and examined. feels well. agree with above. admitted for daylin, urinary retention, fall, and rhabdo. renal fxn has improved with chan. rhabo improving. neuro-sx eval as well for falls appreciated. abd- soft, nt, incisions clean with expected ecchymosis. no acute general surgical intervention. f/u in 2-1 weeks. ok to shower. regular diet. ok to lift. currently on heparin 5000 tid and asa. ok to fully anticoagulate if indicated. no further need for narcotics.
--- NOTE | 2020-03-15 13:08 | PN ---
Progress Note, Physician History of Present Illness: Pt seen and examined at bedside. He is awake and alert. He denies shortness of breath. - Current Medication List Current Medications: Active Medications Ascorbic Acid (Vitamin C -) 500 mg PO DAILY [facility] Aspirin (Asa -) 81 mg PO DAILY [facility] Last Admin: 03/15/20 11:30 Dose: 81 mg Documented by: Cholecalciferol (Vitamin D3 -) 400 unit PO DAILY [facility] Heparin Sodium (Porcine) (Heparin -) 5,000 unit SQ TID [facility] Last Admin: 03/15/20 07:28 Dose: 5,000 unit Documented by: Sodium Chloride (Normal Saline -) 1,000 mls @ 75 mls/hr IV ASDIR [facility] Last Admin: 03/14/20 18:32 Dose: 75 mls/hr Documented by: Tamsulosin HCl (Flomax -) 0.4 mg PO DAILY@0830 [facility] Last Admin: 03/15/20 10:02 Dose: 0.4 mg Documented by: Zinc Sulfate (Orazinc -) 220 mg PO BID [facility] Last Admin: 03/15/20 11:30 Dose: 220 mg Documented by: - Objective Vital Signs: Vital Signs Temperature 98.0 F 03/15/20 10:00 Pulse Rate 68 03/15/20 10:00 Respiratory Rate 20 03/15/20 10:00 Blood Pressure 130/80 03/15/20 10:00 O2 Sat by Pulse Oximetry (%) 96 03/15/20 09:00 Constitutional: Yes: Calm Eyes: Yes: Conjunctiva Clear HENT: Yes: Atraumatic Neck: Yes: Supple Cardiovascular: Yes: S1, S2 Respiratory: Yes: CTA Bilaterally Gastrointestinal: Yes: Soft Genitourinary: Yes: Grady Present, Hematuria Musculoskeletal: Yes: WNL Edema: Yes Edema: LLE: 1+, RLE: 1+ Neurological: Yes: Oriented Psychiatric: Yes: Oriented Labs: CBC, BMP 03/15/20 07:20 03/15/20 07:20 INR, PTT INR 1.24 (0.83-1.09) H 03/14/20 14:00 Problem List - Problems (1) Acute renal failure Code(s): N17.9 - ACUTE KIDNEY FAILURE, UNSPECIFIED Qualifiers: Qualified Code(s): N17.9 - Acute kidney failure, unspecified (2) Weakness Code(s): R53.1 - WEAKNESS Assessment/Plan Current Medications Generic Name Dose Route Start Last Admin Trade Name Nancy PRN Reason Stop Dose Admin Ascorbic Acid 500 mg 03/16/20 10:00 Vitamin C - PO DAILY [facility] Aspirin 81 mg 03/15/20 10:30 03/15/20 11:30 Asa - PO 81 mg DAILY ÁLVARO Administration Cholecalciferol 400 unit 03/16/20 10:00 Vitamin D3 - PO DAILY [facility] Heparin Sodium (Porcine) 5,000 unit 03/14/20 21:15 03/15/20 07:28 Heparin - SQ 5,000 unit TID ÁLVARO Administration Sodium Chloride 1,000 mls @ 75 mls/hr 03/14/20 18:15 03/14/20 18:32 Normal Saline - IV 75 mls/hr ASDIR ÁLVARO Administration Tamsulosin HCl 0.4 mg 03/15/20 09:30 03/15/20 10:02 Flomax - PO 0.4 mg DAILY@0830 ÁLVARO Administration Zinc Sulfate 220 mg 03/15/20 10:30 03/15/20 11:30 Orazinc - PO 220 mg BID ÁLVARO Administration Impression 1. MAXWELL 2. s/p hernia repair 3. hydronephrosis 4. urinary obstruction 5. 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
[2020-03-15] MEDS ORDERED: SODIUM CHLORIDE 0.45% 1,000 ML IV SCH (13:15)
[2020-03-15] MEDS: SODIUM CHLORIDE 0.45% 1,000 ML IV SCH (14:09)
--- NOTE | 2020-03-15 15:33 | PN ---
Progress Note (short form) - Note Progress Note: NEUROSURGERY CONSULT DICTATED Chart reviewed Head CT and C spine CT reviewed h/o BPH, POD6 from B indirect inguinal hernia repair by Dr Sheng Coker presenting with multiple falls, weakness x several weeks and difficulties collecting thoughts for 6 days. 6 days h/o urinary hesitancy. No H/A, or visual changes. No F/C/coughs. He was found by neighbor on floor and was brought to ED. PE: AF, VSS; speech fluent; memory intact HEENT- NC/AT; neck- mild tenderness mid neck on R; Cor- RR; Lungs- CTA B; Abd- benign; Ext- no sign of DVT CN- intact; Motor- 4+-5 except R hand intrinsics 4/5; Sensation- intact LT; DTR- hyporeflexic; b ankle clonus 4-[address]- R sup cerebellar, L frontal white matter, L posterior putamen hypodensity, chronic lacunes?; moderate atrophy, no HCP C spine CT- mild spondylosis, central and R 4-5 paracentral disc protrusion; L C5-6 uncovertebral joint hypertrophy Chronic appearing head CT findings Consider neurology input for cerebrovascular disease Central and R C4-5 paracentral disc protrusion and possible myelopathy Baseline C spine MRI to ascertain degree of neurological element impingement, though C spine pathology is likely cause of his mental changes Baseline brain MRI to r/o subtle acute ischemia given mental/though changes recently Pt will consider getting noncontrast MRI's done Pros and cons discussed Pt is not interested in having neck surgery done
--- NOTE | 2020-03-15 18:43 | PN ---
Physical Exam: SUBJECTIVE: Patient seen and examined. Pt is awake and alert. Endorses neck pain. Pt notes improvement after Grady insertion. OBJECTIVE: Vital Signs Period Temp Pulse Resp BP Sys/Frias Pulse Ox Last 24 Hr 98.0 F-98.9 F 64-68 20-20 121-139/68-80 94-96 GENERAL: The patient is awake, alert, and fully oriented, in no acute distress. HEAD: Normal with no signs of trauma. EYES: PERRL, extraocular movements intact, sclera anicteric, conjunctiva clear. No ptosis. ENT: Ears normal, nares patent, oropharynx clear without exudates, moist mucous membranes. NECK: Trachea midline, full range of motion, supple. LUNGS: Breath sounds equal, clear to auscultation bilaterally, no wheezes, no crackles, no accessory muscle use. HEART: Regular rate and rhythm, S1, S2 without murmur, rub or gallop. ABDOMEN: Soft, nontender, nondistended, normoactive bowel sounds, no guarding, no rebound, no hepatosplenomegaly, no masses. Bruising over lower abdominal area from recent surgery. EXTREMITIES: 2+ pulses, warm, well-perfused, no edema. NEUROLOGICAL: Cranial nerves II through XII grossly intact. Normal speech, gait not observed. PSYCH: Normal mood, normal affect. SKIN: Warm, dry, normal turgor, no rashes or lesions noted Laboratory Results - last 24 hr 03/14/20 03/14/20 03/14/20 15:30 18:20 18:20 WBC RBC Hgb Hct MCV MCH MCHC RDW Plt Count MPV Absolute Neuts (auto) Neutrophils % Lymphocytes % Monocytes % Eosinophils % Basophils % Nucleated RBC % Sodium Potassium Chloride Carbon Dioxide Anion Gap BUN Creatinine Est GFR (CKD-EPI)AfAm Est GFR (CKD-EPI)NonAf POC Glucometer Random Glucose Lactic Acid 1.2 Calcium Phosphorus Magnesium Total Bilirubin AST ALT Alkaline Phosphatase Creatine Kinase Creatine Kinase Index CK-MB (CK-2) Total Protein Albumin Urine Color Yellow Urine Appearance Clear Urine pH 5.0 Ur Specific [place] 1.012 Urine Protein Negative Urine Glucose (UA) Trace Urine Ketones Negative Urine Blood 1+ H Urine Nitrite Negative Urine Bilirubin Negative Urine Urobilinogen 0.2 Ur Leukocyte Esterase Negative Urine WBC (Auto) 3 Urine RBC (Auto) 11 Urine Casts (Auto) 0 U Epithel Cells (Auto) 2 Urine Bacteria (Auto) 1 COVID-19 (JEAN) Not detected 03/15/20 03/15/20 03/15/20 07:20 07:20 16:42 WBC 5.9 RBC 3.68 L Hgb 11.0 L Hct 32.7 L MCV 88.7 MCH 29.9 MCHC 33.7 RDW 14.2 Plt Count 155 MPV 8.1 Absolute Neuts (auto) 4.6 Neutrophils % 78.0 Lymphocytes % 10.5 D Monocytes % 8.0 Eosinophils % 3.0 D Basophils % 0.5 Nucleated RBC % 0 Sodium 144 Potassium 3.8 Chloride 110 H Carbon Dioxide 22 Anion Gap 11 BUN 44.7 H Creatinine 2.0 H Est GFR (CKD-EPI)AfAm 35.23 Est GFR (CKD-EPI)NonAf 30.40 POC Glucometer 107 Random Glucose 66 L Lactic Acid Calcium 8.1 L Phosphorus 2.6 Magnesium 2.2 Total Bilirubin 0.9 AST 64 H ALT 21 Alkaline Phosphatase 73 Creatine Kinase 1609 H Creatine Kinase Index 1.0 CK-MB (CK-2) 17.1 H Total Protein 5.7 L Albumin 2.4 L Urine Color Urine Appearance Urine pH Ur Specific [place] Urine Protein Urine Glucose (UA) Urine Ketones Urine Blood Urine Nitrite Urine Bilirubin Urine Urobilinogen Ur Leukocyte Esterase Urine WBC (Auto) Urine RBC (Auto) Urine Casts (Auto) U Epithel Cells (Auto) Urine Bacteria (Auto) COVID-19 (JEAN) Active Medications Generic Name Dose Route Start Last Admin Trade Name Freq PRN Reason Stop Dose Admin Ascorbic Acid 500 mg 03/16/20 10:00 Vitamin C - PO DAILY ÁLVARO Aspirin 81 mg 03/15/20 10:30 03/15/20 11:30 Asa - PO 81 mg DAILY ÁLVARO Administration Cholecalciferol 400 unit 03/16/20 10:00 Vitamin D3 - PO DAILY ÁLVARO Heparin Sodium (Porcine) 5,000 unit 03/14/20 21:15 03/15/20 14:10 Heparin - SQ 5,000 unit TID ÁLVARO Administration Sodium Chloride 1,000 mls @ 75 mls/hr 03/15/20 13:15 03/15/20 14:09 1/2 Normal Saline IV 75 mls/hr ASDIR ÁLVARO Administration Tamsulosin HCl 0.4 mg 03/15/20 09:30 03/15/20 10:02 Flomax - PO 0.4 mg DAILY@0830 ÁLVARO Administration Zinc Sulfate 220 mg 03/15/20 10:30 03/15/20 11:30 Orazinc - PO 220 mg BID ÁLVARO Administration ASSESSMENT/PLAN: 79yo M with PMHx of BPH on Tamsulosin, POD5 from b/l indirect inguinal hernia repair (Sheng Coker, 03/09/2020) presenting with multiple falls, weakness and found down in home by neighbour and brought to ED, admitted for MAXWELL 2/2 to urinary obstruction in setting of confusion. Grady was inserted which drained 1400 cc in ED improving pt symptoms. #Urinary obstruction 2/2 to BPH -Nephrology consulted -Urology consulted -COntributed to MAXWELL -Resolved with Grady catheter placed by nephrology, continuing to drain urine #MAXWELL -Likely secondary to urinary obstruction, or rhabdomyolysis -Received 2.5L NS -BUN 83.9/Cr 6.7 imporoved to 44.7/2 -Reactive white count due to dehydration which resolved (10.8 to 5.9) #Rhabdomyolysis -CK 1609; continue to follow -Received 2.5 L NS #Recent indirect inguinal hernia repair B/L -Ecchymosis overlying lower abdominal and pelvic area -Recent surgery could lead towards atelectasis vs COVID for ground glass opacities seen on CT #Possible atelectasis vs COVID -bilateral ground glass opacities seen on CT -Possibly atelectasis due to recent surgery vs. COVID -Zn, VitC and VitD #C4-5 disc herniation -Consulted neurosurg for evaluation -Pt does not want surgery, but is considering noncontrast MRI per neurosurg Prophylaxis -Heparin 5000u TID FEN -Receiving NS -Monitor electrolytes in AM -Renal diet Dispo: Admitted for urinary obstruction and altered state, found to have rhabdomyolysis. Grady placed which resolved symptoms and improved mental status. Being treated with fluids for rhabdo. Visit type - Emergency Visit Emergency Visit: Yes ED Registration Date: 03/14/20 Care time: The patient presented to the Emergency Department on the above date and was hospitalized for further evaluation of their emergent condition. - New Patient This patient is new to me today: Yes Date on this admission: 03/15/20 - Critical Care Critical Care patient: No - Medication Review Med list reviewed for High Risk Meds patients 65 and older: Yes ATTENDING PHYSICIAN STATEMENT I saw and evaluated the patient. I reviewed the resident's note and discussed the case with the resident. I agree with the resident's findings and plan as documented. SUBJECTIVE: OBJECTIVE: ASSESSMENT AND PLAN:
--- NOTE | 2020-03-15 19:27 | PN ---
Teaching Attending Note Name of Resident: Harinder Al ATTENDING PHYSICIAN STATEMENT I saw and evaluated the patient. I reviewed the resident's note and discussed the case with the resident. I agree with the resident's findings and plan as documented. SUBJECTIVE: Feeling better, no complaints. OBJECTIVE: Afebrile, hemodynamically Stable Last Vital Signs Temp Pulse Resp BP Pulse Ox 98.4 F 67 20 121/66 96 03/15/20 16:15 03/15/20 16:15 03/15/20 16:15 03/15/20 16:15 03/15/20 09:00 HEENT - Atraumatic, normocephalic. Heart - S1, S2, RRR Lungs - clear to auscultation Abdomen - Surgical incision scar, mild tenderness, soft, some bruising. Bowel Sounds normal. Extremities - Edema +, no calf tenderness. Neuro - AAO x 3. Reduced Power RUE. - Grady in situ, blood-tinged urine. Laboratory Results - last 24 hr 03/14/20 03/14/20 03/15/20 18:20 18:20 07:20 WBC 5.9 RBC 3.68 L Hgb 11.0 L Hct 32.7 L MCV 88.7 MCH 29.9 MCHC 33.7 RDW 14.2 Plt Count 155 MPV 8.1 Absolute Neuts (auto) 4.6 Neutrophils % 78.0 Lymphocytes % 10.5 D Monocytes % 8.0 Eosinophils % 3.0 D Basophils % 0.5 Nucleated RBC % 0 Sodium Potassium Chloride Carbon Dioxide Anion Gap BUN Creatinine Est GFR (CKD-EPI)AfAm Est GFR (CKD-EPI)NonAf POC Glucometer Random Glucose Lactic Acid 1.2 Calcium Phosphorus Magnesium Total Bilirubin AST ALT Alkaline Phosphatase Creatine Kinase Creatine Kinase Index CK-MB (CK-2) Total Protein Albumin COVID-19 (JEAN) Not detected 03/15/20 03/15/20 07:20 16:42 WBC RBC Hgb Hct MCV MCH MCHC RDW Plt Count MPV Absolute Neuts (auto) Neutrophils % Lymphocytes % Monocytes % Eosinophils % Basophils % Nucleated RBC % Sodium 144 Potassium 3.8 Chloride 110 H Carbon Dioxide 22 Anion Gap 11 BUN 44.7 H Creatinine 2.0 H Est GFR (CKD-EPI)AfAm 35.23 Est GFR (CKD-EPI)NonAf 30.40 POC Glucometer 107 Random Glucose 66 L Lactic Acid Calcium 8.1 L Phosphorus 2.6 Magnesium 2.2 Total Bilirubin 0.9 AST 64 H ALT 21 Alkaline Phosphatase 73 Creatine Kinase 1609 H Creatine Kinase Index 1.0 CK-MB (CK-2) 17.1 H Total Protein 5.7 L Albumin 2.4 L COVID-19 (JEAN) Current Medications Generic Name Dose Route Start Last Admin Trade Name Freq PRN Reason Stop Dose Admin Ascorbic Acid 500 mg 03/16/20 10:00 Vitamin C - PO DAILY ÁLVARO Aspirin 81 mg 03/15/20 10:30 03/15/20 11:30 Asa - PO 81 mg DAILY ÁLVARO Administration Cholecalciferol 400 unit 03/16/20 10:00 Vitamin D3 - PO DAILY ÁLVARO Heparin Sodium (Porcine) 5,000 unit 03/14/20 21:15 03/15/20 14:10 Heparin - SQ 5,000 unit TID ÁLVARO Administration Sodium Chloride 1,000 mls @ 75 mls/hr 03/15/20 13:15 03/15/20 14:09 1/2 Normal Saline IV 75 mls/hr ASDIR ÁLVARO Administration Tamsulosin HCl 0.4 mg 03/15/20 09:30 03/15/20 10:02 Flomax - PO 0.4 mg DAILY@0830 ÁLVARO Administration Zinc Sulfate 220 mg 03/15/20 10:30 03/15/20 11:30 Orazinc - PO 220 mg BID ÁLVARO Administration Home Medications Medication Instructions Recorded Unobtainable 03/14/20 ASSESSMENT AND PLAN: 79 year old male with history of BPH, POD 5 s/p inguinal hernia repair (Dr. Sheng Coker, 03/09/2020), brought to Ed after being found by neighbor lying on floor - patient reports recent multiple falls, weakness, and some confusion. Head CT: neg acute, chronic Right cerebella infarct, punctate Left basal ganglia infarct C-spine CT: mod-large right paramedian C4-C5 disc herniation, partial imaging of Right pleural effusion CT C/A/P: marked enlarged prostate. Right perirenal soft tissue stranding. Interval development of small amount of fluid accumulation along the Right anterior and posterior pararenal fasciae. Interval development of mild nonspecific soft tissue stranding adjacent to the inferior border of the cecum. Small amount of subcutaneous air is visualized along the Right anterior pelvis. Small hepatic cysts. S/P cholecystectomy. Dilated CBD 1.4cm diameter. Mod to large hiatal hernia Renal US: min-mild b/l hydronephrosis 1. Acute Encephalopathy secondary to Uremia, dehydration, possible UTI Mental Status improving. Imaging as above. Urine Cx pending. Afebrile, without leukocytosis. 2. MAXWELL secondary to Dehydration + Obstructive Uropathy Bilateral Hydronephrosis on Renal US Grady in situ (bloody urine), Tamsulosin started. Renal function improving. Continue IV hydration Urology and Nephrology consulted. 3. Acute Rhabdomyolysis sec to lying on floor - continue IV hydration. 4. POD 6 s/p Inguinal Hernia Repair Surgery consulted. 5. 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 6. Cerebrovascular Disease - chronic infarcts on CT Head - started on Aspirin. To start Statin once CPK normalizes. DVT Px - Heparin SQ
--- NOTE | 2020-03-16 06:30 | CONS ---
DATE OF CONSULTATION: 03/15/2020 CHIEF COMPLAINT: Right-sided neck pain, decreased balance, and urinary hesitancy with a history of recent falls. HISTORY OF PRESENT ILLNESS: The patient is an 79-year-old right-handed male with history of BPH, status post bilateral inguinal hernia repair 6 days earlier, who complains of multiple falls, weakness and difficulty with his mental process as well as sickness over the past few weeks. He also has 6-day history of increased urinary hesitancy. He denies fevers, chills, or cough. He was found by his neighbor on the floor and was brought into the emergency room for evaluation. Patient has no headache, nausea, vomiting, or seizure activity. Right sided neck pain has been in the mid cervical paraspinal region and has been present since 6 days ago. PAST MEDICAL HISTORY: Significant for BPH, inguinal hernia repair. MEDICATIONS: Include: 1. Flomax. 2. Subcutaneous heparin. 3. Baby aspirin. 4. Zinc. 5. Vitamin C. 6. Vitamin D3. ALLERGIES: There are no known drug allergies. FAMILY HISTORY: Noncontributory. SOCIAL HISTORY: He does not smoke and only drinks alcohol socially. He lives at home. He is retired. REVIEW OF SYSTEMS: Otherwise negative for other major constitutional, head/neck, cardiovascular, pulmonary, gastrointestinal, genitourinary, endocrinologic, neurologic, or psychological problems except for the above. PHYSICAL EXAMINATION: Vital Signs: Temperature is 98.4, blood pressure 121/68 with pulse rate of 68, O2 saturation 96% on room air. General: His speech is normal, and his memory is intact. He has no apparent higher cortical function defect. HEENT: Showed him to be normocephalic, atraumatic, anicteric. Neck: Supple. There is some right-sided midcervical tenderness to palpation. His range of motion is physiological for his age. Coronary: Demonstrated regular rhythm. Lungs: Clear. Abdomen: Benign. Extremities: Show no obvious signs of DVT. Neurologic: He is awake, alert, oriented x4. Cranial nerves examination intact 2-12. Motor examination shows 4+/5/5 strength except for right hand intrinsic muscle, which is 4/5. The dexterity, the hand movement is somewhat slower, but the patient does not complain of decreased dexterity of his hands at all. Sensory examination is intact to light touch. Deep tendon reflexes are hyporeflexive throughout. He has 4-5 beats of clonus at both ankles. There is no Sanchez sign. His toes are equivocal. Cerebellar examination demonstrates mild pass pointing bilaterally but it is not grossly abnormal. LABORATORY EXAMINATION: Shows white blood cell count 10.8 initially, it is now 5.9, hemoglobin is 11, and hematocrit is 32.7, platelet count is 155,000. INR is 1.24. Serum sodium is 144, potassium 3.8. BUN is 44.7 (previously 83.9) and creatinine is 2.0 (previously 6.7) currently. Urinalysis shows 3 WBCs, 11 RBCs. Blood culture and urine culture are both pending. COVID-[address] scan of the head demonstrated moderate cerebral atrophy. There is mild periventricular small- vessel disease. There is right superior cerebellar hypodensity consistent with chronic infarct. There is also a left posterior putamen lacune. Another small hypodensity is noted in the left frontal white matter. There is no hydrocephalus or acute bleed. CT scan of cervical spine demonstrated mild spondylosis throughout. There is facet hypertrophy. There is essential right-sided paracentral disk protrusion which might impinge on spinal cord centrally and to the right. There is no significant spinal stenosis, however, there is left C5-C6 foraminal narrowing secondary to uncovertebral joint hypertrophy. IMPRESSION: 1. Probable obstructive uropathy with elevated BUN/creatinine, improving. 2. C4-C5 right-sided paracentral disk protrusion with possible spinal cord impingement and mild cervical myelopathy. 3. Status post recent inguinal hernia repair. 4. Cerebrovascular disease. RECOMMENDATION: The patient presents with several-week history of decreasing balance and subjective weakness. For 6 days or so he has had problems with urinary hesitancy. He denies any headache, nausea, vomiting. He has also for several days had a history of right-sided neck pain. There are no radicular symptoms. Examination demonstrates slight weakness in the right hand greater than left, and overall strength is symmetric. He does have some clonus at the ankle, but he does not have a positive Babinski, nor does he have a positive Sanchez sign. The patient might be somewhat symptomatic from the cervical spine, given his examination of right-sided pain and baseline MRI examination is recommended to further diagnose and treat his symptoms. The patient is not interested in more surgery, especially for his cervical spine, but he is possibly interested in finding out the cause of his stomach symptoms. He understands that his recent mental changes are not related to the cervical spine. His head CT scan had demonstrated some microvascular changes as well as some small chronic infarct/lacune. MRI of the brain with diffusion imaging should be considered to rule out subtle acute ischemia, and the patient is also potentially agreeable to get that done. The patient will discuss with the medical team, whether he wants to proceed with the above recommended MRI examination. A baseline neurology consultation is also recommended to rule out any cerebrovascular disease/ischemia. The pros and cons of the above were discussed with the patient in detail at bedside. All questions were answered. MEDARDO ALONZO M.D. ALEAH/[id number] ROSA MARIA
[2020-03-16] MEDS: HEPARIN NA (PORCINE) 5,000 UNITS/ML 1ML VIAL SQ SCH ×3 (07:01→21:06)
[2020-03-16] MEDS: SODIUM CHLORIDE 0.45% 1,000 ML IV SCH ×2 (07:04→14:41)
[2020-03-16 08:47] LABS: BASO % 0.5 % (0-2.0); EOS % 4.6 % (0-4.5); HEMATOCRIT 31.2 % (35.4-49); HEMOGLOBIN 10.5 GM/dL (11.7-16.9); LYMPH % 17.2 % (8-40); MCH 29.8 pg (25.7-33.7); MCHC 33.5 g/dl (32.0-35.9); MEAN CELL VOLUME 88.9 fl (80-96); MONO % 13.3 % (3.8-10.2); NEUT % 64.4 % (42.8-82.8); PLATELET COUNT 161 K/MM3 (134-434); RBC 3.51 M/mm3 (4.00-5.60); RDW 14.1 % (11.9-15.9); WHITE BLOOD COUNT 4.3 K/mm3 (4.0-10.0)
[2020-03-16 09:13] LABS: ALBUMIN 2.1 g/dl (3.4-5.0); BILIRUBIN,TOTAL 0.4 mg/dL (0.2-1); BLOOD UREA NITROGEN 19.9 mg/dL (7-18); CALCIUM 7.3 mg/dL (8.5-10.1); CREATININE 0.7 mg/dL (0.55-1.3); PHOSPHOROUS 1.8 mg/dL (2.5-4.9); POTASSIUM 3.5 mmol/L (3.5-5.1); TOT PROT 5.3 g/dl (6.4-8.2)
[2020-03-16] MEDS ORDERED: POTASSIUM PHOSPHATE 30 MM in SODIUM CHLORIDE 500 ML IVPB ONE (10:30)
--- NOTE | 2020-03-16 10:41 | PN ---
Progress Note (short form) - Note Progress Note: NEUROSURGERY h/o BPH, POD6 from B indirect inguinal hernia repair by Dr Coker presenting with multiple falls, weakness x several weeks and difficulties collecting thoughts for 6 days. Also R neck pain for about the same time. 6 days h/o urinary hesitancy. No H/A, or visual changes. No F/C/coughs. He was found by neighbor on floor and was brought to ED. PE: AF, VSS; speech fluent; memory intact HEENT- NC/AT; neck- mild tenderness mid neck on R; Cor- RR; Lungs- CTA B; Abd- benign; Ext- no sign of DVT CN- intact; Motor- 4+-5 except R hand intrinsics 4/5; Sensation- intact LT; DTR- hyporeflexic; b ankle clonus 4-5 beats BUN/Cr- normalizing Head CT- R sup cerebellar, L frontal white matter, L posterior putamen hypodensity, chronic lacunes?; moderate atrophy, no HCP C spine CT- mild spondylosis, central and R 4-5 paracentral disc protrusion; L C5-6 uncovertebral joint hypertrophy Consider neurology input for cerebrovascular disease and future outpatient management Central and R C4-5 paracentral disc protrusion and possible myelopathy Baseline C spine MRI to ascertain degree of neurological element (cord) impingement, though C spine pathology is unlikely cause of his mental changes (though that could have been related obstructive uropathy and acute renal failure at presentation) Baseline brain MRI to r/o subtle acute ischemia given mental status changes recently and head CT findings Pt concur with getting noncontrast MRI's done for further elucidate the cause(s) of his recent symptoms D/w Dr Coker
[2020-03-16] MEDS: TAMSULOSIN HCL 0.4 MG CAP PO SCH (11:02)
[2020-03-16] MEDS: ASPIRIN 81 MG CHEWABLE TABLETS PO SCH (11:02)
[2020-03-16] MEDS: ASCORBIC ACID 500 MG TABLET (FP) PO SCH (11:02)
[2020-03-16] MEDS: ZINC SULFATE 220 MG CAPSULE (FP) PO SCH ×2 (11:02→21:06)
[2020-03-16] MEDS: CHOLECALCIFEROL (VIT D3) 400 UNIT (10 MCG) TABLET PO SCH (11:02)
[2020-03-16] MEDS ORDERED: POTASSIUM CHLORIDE TABS 20 MEQ TABLET.ER (FP) PO ONE (12:58)
--- NOTE | 2020-03-16 12:58 | PN ---
Progress Note, Physician History of Present Illness: Pt seen and examined at bedside. He is awake and alert. He denies shortness of breath. - Current Medication List Current Medications: Active Medications Ascorbic Acid (Vitamin C -) 500 mg PO DAILY PENDING SALE TO [facility] Last Admin: 03/16/20 11:02 Dose: 500 mg Documented by: Aspirin (Asa -) 81 mg PO DAILY PENDING SALE TO [facility] Last Admin: 03/16/20 11:02 Dose: 81 mg Documented by: Cholecalciferol (Vitamin D3 -) 400 unit PO DAILY PENDING SALE TO [facility] Last Admin: 03/16/20 11:02 Dose: 400 unit Documented by: Heparin Sodium (Porcine) (Heparin -) 5,000 unit SQ TID PENDING SALE TO [facility] Last Admin: 03/16/20 07:01 Dose: 5,000 unit Documented by: Sodium Chloride (1/2 Normal Saline) 1,000 mls @ 75 mls/hr IV ASDIR PENDING SALE TO [facility] Last Admin: 03/16/20 07:04 Dose: 75 mls/hr Documented by: Potassium Phosphate 30 mm/ (Sodium Chloride) 510 mls @ 62.5 mls/hr IVPB ONCE ONE Stop: 03/16/20 18:39 Last Admin: 03/16/20 11:48 Dose: 62.5 mls/hr Documented by: Tamsulosin HCl (Flomax -) 0.4 mg PO DAILY@0830 PENDING SALE TO [facility] Last Admin: 03/16/20 11:02 Dose: 0.4 mg Documented by: Zinc Sulfate (Orazinc -) 220 mg PO BID PENDING SALE TO [facility] Last Admin: 03/16/20 11:02 Dose: 220 mg Documented by: - Objective Vital Signs: Vital Signs Temperature 98.7 F 03/16/20 07:22 Pulse Rate 57 L 03/16/20 07:22 Respiratory Rate 20 03/16/20 07:22 Blood Pressure 143/79 03/16/20 07:22 O2 Sat by Pulse Oximetry (%) 93 L 03/16/20 07:22 Constitutional: Yes: Calm Eyes: Yes: Conjunctiva Clear HENT: Yes: Atraumatic Neck: Yes: Supple Cardiovascular: Yes: S1, S2 Respiratory: Yes: CTA Bilaterally Gastrointestinal: Yes: Soft Genitourinary: Yes: Grady Present Musculoskeletal: Yes: WNL Edema: No Neurological: Yes: Oriented Psychiatric: Yes: Oriented Labs: CBC, BMP 03/16/20 07:30 03/16/20 07:30 INR, PTT INR 1.24 (0.83-1.09) H 03/14/20 14:00 Problem List - Problems (1) Acute renal failure Code(s): N17.9 - ACUTE KIDNEY FAILURE, UNSPECIFIED Qualifiers: Acute renal failure type: unspecified Qualified Code(s): N17.9 - Acute kidney failure, unspecified (2) Weakness Code(s): R53.1 - WEAKNESS Assessment/Plan Current Medications Generic Name Dose Route Start Last Admin Trade Name Nancy PRN Reason Stop Dose Admin Ascorbic Acid 500 mg 03/16/20 10:00 03/16/20 11:02 Vitamin C - PO 500 mg DAILY ÁLVARO Administration Aspirin 81 mg 03/15/20 10:30 03/16/20 11:02 Asa - PO 81 mg DAILY ÁLVARO Administration Cholecalciferol 400 unit 03/16/20 10:00 03/16/20 11:02 Vitamin D3 - PO 400 unit DAILY ÁLVARO Administration Heparin Sodium (Porcine) 5,000 unit 03/14/20 21:15 03/16/20 07:01 Heparin - SQ 5,000 unit TID ÁLVARO Administration Sodium Chloride 1,000 mls @ 75 mls/hr 03/15/20 13:15 03/16/20 07:04 1/2 Normal Saline IV 75 mls/hr ASDIR ÁLVARO Administration Potassium Phosphate 30 mm/ 510 mls @ 62.5 mls/hr 03/16/20 10:30 03/16/20 11:48 Sodium Chloride IVPB 03/16/20 18:39 62.5 mls/hr ONCE ONE Administration Tamsulosin HCl 0.4 mg 03/15/20 09:30 03/16/20 11:02 Flomax - PO 0.4 mg DAILY@0830 ÁLVARO Administration Zinc Sulfate 220 mg 03/15/20 10:30 03/16/20 11:02 Orazinc - PO 220 mg BID ÁLVARO Administration Laboratory Tests 03/16/20 07:30 Potassium 3.5 Phosphorus 1.8 L Impression 1. MAXWELL 2. s/p hernia repair 3. hydronephrosis 4. urinary obstruction 5. 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
[2020-03-16] MEDS: NAPH,MB-DB/K PH,MBDB POWDER PACKET PO SCH ×3 (14:41→21:15)
--- NOTE | 2020-03-16 15:35 | PN ---
Physical Exam: SUBJECTIVE: Patient seen and examined. No acute events overnight. Admits to neck pain. Denies any urinary symptoms, fever, chills, nausea, vomiting, diarrhea, constipation. OBJECTIVE: Vital Signs Period Temp Pulse Resp BP Sys/Frias Pulse Ox Last 24 Hr 98.1 F-98.7 F 57-72 20-20 121-143/66-79 92-95 GENERAL: The patient is awake, alert, and fully oriented, in no acute distress. HEAD: Normal with no signs of trauma. EYES: PERRL, extraocular movements intact, sclera anicteric, conjunctiva clear. No ptosis. ENT: Ears normal, nares patent, oropharynx clear without exudates, moist mucous membranes. NECK: Trachea midline, full range of motion, supple. LUNGS: Breath sounds equal, clear to auscultation bilaterally, no wheezes, no crackles, no accessory muscle use. HEART: Regular rate and rhythm, S1, S2 without murmur, rub or gallop. ABDOMEN: Soft, nontender, nondistended, normoactive bowel sounds, no guarding, no rebound, no hepatosplenomegaly, no masses. Bruising over lower abdominal area from recent hernia surgery. EXTREMITIES: 2+ pulses, warm, well-perfused, no edema. : Grady inserted. No hematuria. NEUROLOGICAL: Cranial nerves II through XII grossly intact. Normal speech, gait not observed. PSYCH: Normal mood, normal affect. SKIN: Warm, dry, normal turgor, no rashes or lesions noted Laboratory Results - last 24 hr 03/15/20 03/15/20 03/16/20 16:42 23:03 07:30 WBC RBC Hgb Hct MCV MCH MCHC RDW Plt Count MPV Absolute Neuts (auto) Neutrophils % Lymphocytes % Monocytes % Eosinophils % Basophils % Nucleated RBC % Sodium 141 Potassium 3.5 Chloride 110 H Carbon Dioxide 25 Anion Gap 6 L BUN 19.9 H Creatinine 0.7 Est GFR (CKD-EPI)AfAm 102.58 Est GFR (CKD-EPI)NonAf 88.50 POC Glucometer 107 103 Random Glucose 89 Calcium 7.3 L Phosphorus 1.8 L Magnesium 2.0 Total Bilirubin 0.4 AST 48 H ALT 19 Alkaline Phosphatase 63 Creatine Kinase Creatine Kinase Index CK-MB (CK-2) Total Protein 5.3 L Albumin 2.1 L 03/16/20 03/16/20 07:30 07:30 WBC 4.3 RBC 3.51 L Hgb 10.5 L Hct 31.2 L MCV 88.9 MCH 29.8 MCHC 33.5 RDW 14.1 Plt Count 161 MPV 8.0 Absolute Neuts (auto) 2.8 Neutrophils % 64.4 Lymphocytes % 17.2 D Monocytes % 13.3 H Eosinophils % 4.6 H Basophils % 0.5 Nucleated RBC % 0 Sodium Potassium Chloride Carbon Dioxide Anion Gap BUN Creatinine Est GFR (CKD-EPI)AfAm Est GFR (CKD-EPI)NonAf POC Glucometer Random Glucose Calcium Phosphorus Magnesium Total Bilirubin AST ALT Alkaline Phosphatase Creatine Kinase 708 H Creatine Kinase Index 0.5 CK-MB (CK-2) 4.1 H Total Protein Albumin Active Medications Generic Name Dose Route Start Last Admin Trade Name Freq PRN Reason Stop Dose Admin Ascorbic Acid 500 mg 03/16/20 10:00 03/16/20 11:02 Vitamin C - PO 500 mg DAILY ÁLVARO Administration Aspirin 81 mg 03/15/20 10:30 03/16/20 11:02 Asa - PO 81 mg DAILY ÁLVARO Administration Cholecalciferol 400 unit 03/16/20 10:00 03/16/20 11:02 Vitamin D3 - PO 400 unit DAILY ÁLVARO Administration Heparin Sodium (Porcine) 5,000 unit 03/14/20 21:15 03/16/20 14:48 Heparin - SQ 5,000 unit TID ÁLVARO Administration Sodium Chloride 1,000 mls @ 75 mls/hr 03/15/20 13:15 03/16/20 14:41 1/2 Normal Saline IV Not Given ASDIR [facility] Potassium Phosphate 30 mm/ 510 mls @ 62.5 mls/hr 03/16/20 10:30 03/16/20 11:48 Sodium Chloride IVPB 03/16/20 18:39 62.5 mls/hr ONCE ONE Administration Potassium Phos/Sodium Phos 1 packet 03/16/20 13:00 03/16/20 14:41 Phos-Nak Packet - PO Not Given BID ÁLVARO Tamsulosin HCl 0.4 mg 03/15/20 09:30 03/16/20 11:02 Flomax - PO 0.4 mg DAILY@0830 ÁLVARO Administration Zinc Sulfate 220 mg 03/15/20 10:30 03/16/20 11:02 Orazinc - PO 220 mg BID ÁLVARO Administration ASSESSMENT/PLAN: 79yo M with PMHx of BPH on Tamsulosin, POD6 from b/l indirect inguinal hernia repair (Sheng Coker, 03/09/2020) presenting with multiple falls, weakness and found down in home by neighbour and brought to ED, admitted for MAXWELL 2/2 to ur inary obstruction in setting of confusion. Grady was inserted which drained urine and pt mentation improved. Grady still inserted. #Urinary obstruction 2/2 to BPH -Nephrology consulted -Urology consulted -Resolved with Grady catheter placed by nephrology, continuing to drain urine #MAXWELL -Likely secondary to urinary obstruction, or rhabdomyolysis -Received 2.5L NS -BUN/Cr 19/0.7 (BUN 83.9/Cr 6.7 on admission) -Reactive white count due to dehydration which resolved (10.8 to 4.3) -UCx negative, no UTI #Rhabdomyolysis -CK downtrending to 708; continue to follow -Switched to 1/2 NS at 75cc/hr per nephro #Recent indirect inguinal hernia repair B/L -Ecchymosis overlying lower abdominal and pelvic area #Possible atelectasis vs COVID -COVID negative -Ground glass oapcities seen on CT -Likely atelectasis status post surgery #C4-5 disc herniation -Consulted neurosurg for evaluation -C spine MRI ordered Prophylaxis -Heparin 5000u TID FEN -Receiving NS -Monitor electrolytes in AM -Renal diet Dispo: Admitted for urinary obstruction and altered state, found to have rhabdomyolysis. Grady placed which resolved symptoms and improved mental status. Being treated with fluids for rhabdo. Visit type - Emergency Visit Emergency Visit: Yes ED Registration Date: 03/14/20 Care time: The patient presented to the Emergency Department on the above date and was hospitalized for further evaluation of their emergent condition. - New Patient This patient is new to me today: No - Critical Care Critical Care patient: No - Medication Review Med list reviewed for High Risk Meds patients 65 and older: Yes ATTENDING PHYSICIAN STATEMENT I saw and evaluated the patient. I reviewed the resident's note and discussed the case with the resident. I agree with the resident's findings and plan as documented. SUBJECTIVE: OBJECTIVE: ASSESSMENT AND PLAN:
--- NOTE | 2020-03-16 18:18 | PN ---
Teaching Attending Note Name of Resident: Harinder Al ATTENDING PHYSICIAN STATEMENT I saw and evaluated the patient. I reviewed the resident's note and discussed the case with the resident. I agree with the resident's findings and plan as documented. SUBJECTIVE: Feeling better, no complaints. Walking in hallway with walker/PT. OBJECTIVE: Afebrile, Hemodynamically Stable Last Vital Signs Temp Pulse Resp BP Pulse Ox 98.1 F 72 20 130/75 95 03/16/20 15:00 03/16/20 15:00 03/16/20 15:00 03/16/20 15:00 03/16/20 15:00 Heart - S1, S2, RRR Lungs - clear to auscultation Abdomen - Surgical incision scar, mild tenderness, soft, some bruising. Bowel Sounds normal. Extremities - Edema +, no calf tenderness. Neuro - AAO x 3. Reduced Power RUE. - Grady in situ, urine cleared. Laboratory Results - last 24 hr 03/15/20 03/16/20 03/16/20 23:03 07:30 07:30 WBC 4.3 RBC 3.51 L Hgb 10.5 L Hct 31.2 L MCV 88.9 MCH 29.8 MCHC 33.5 RDW 14.1 Plt Count 161 MPV 8.0 Absolute Neuts (auto) 2.8 Neutrophils % 64.4 Lymphocytes % 17.2 D Monocytes % 13.3 H Eosinophils % 4.6 H Basophils % 0.5 Nucleated RBC % 0 Sodium 141 Potassium 3.5 Chloride 110 H Carbon Dioxide 25 Anion Gap 6 L BUN 19.9 H Creatinine 0.7 Est GFR (CKD-EPI)AfAm 102.58 Est GFR (CKD-EPI)NonAf 88.50 POC Glucometer 103 Random Glucose 89 Calcium 7.3 L Phosphorus 1.8 L Magnesium 2.0 Total Bilirubin 0.4 AST 48 H ALT 19 Alkaline Phosphatase 63 Creatine Kinase Creatine Kinase Index CK-MB (CK-2) Total Protein 5.3 L Albumin 2.1 L 03/16/20 07:30 WBC RBC Hgb Hct MCV MCH MCHC RDW Plt Count MPV Absolute Neuts (auto) Neutrophils % Lymphocytes % Monocytes % Eosinophils % Basophils % Nucleated RBC % Sodium Potassium Chloride Carbon Dioxide Anion Gap BUN Creatinine Est GFR (CKD-EPI)AfAm Est GFR (CKD-EPI)NonAf POC Glucometer Random Glucose Calcium Phosphorus Magnesium Total Bilirubin AST ALT Alkaline Phosphatase Creatine Kinase 708 H Creatine Kinase Index 0.5 CK-MB (CK-2) 4.1 H Total Protein Albumin Current Medications Generic Name Dose Route Start Last Admin Trade Name Nancy PRN Reason Stop Dose Admin Ascorbic Acid 500 mg 03/16/20 10:00 03/16/20 11:02 Vitamin C - PO 500 mg DAILY ÁLVARO Administration Aspirin 81 mg 03/15/20 10:30 03/16/20 11:02 Asa - PO 81 mg DAILY ÁLVARO Administration Cholecalciferol 400 unit 03/16/20 10:00 03/16/20 11:02 Vitamin D3 - PO 400 unit DAILY ÁLVARO Administration Heparin Sodium (Porcine) 5,000 unit 03/14/20 21:15 03/16/20 14:48 Heparin - SQ 5,000 unit TID ÁLVARO Administration Sodium Chloride 1,000 mls @ 75 mls/hr 03/15/20 13:15 03/16/20 14:41 1/2 Normal Saline IV Not Given ASDIR ÁLVARO Potassium Phosphate 30 mm/ 510 mls @ 62.5 mls/hr 03/16/20 10:30 03/16/20 11:48 Sodium Chloride IVPB 03/16/20 18:39 62.5 mls/hr ONCE ONE Administration Potassium Phos/Sodium Phos 1 packet 03/16/20 13:00 03/16/20 14:41 Phos-Nak Packet - PO Not Given BID ÁLVARO Tamsulosin HCl 0.4 mg 03/15/20 09:30 03/16/20 11:02 Flomax - PO 0.4 mg DAILY@0830 ÁLVARO Administration Zinc Sulfate 220 mg 03/15/20 10:30 03/16/20 11:02 Orazinc - PO 220 mg BID ÁLVARO Administration Home Medications Medication Instructions Recorded Unobtainable 03/14/20 ASSESSMENT AND PLAN: 79 year old male with history of BPH, POD 7 s/p inguinal hernia repair (Dr. Sheng Coker, 03/09/2020), brought to ED after being found by neighbor lying on floor - patient reports recent multiple falls, weakness, and some confusion. Head CT: neg acute, chronic Right cerebella infarct, punctate Left basal ganglia infarct C-spine CT: mod-large right paramedian C4-C5 disc herniation, partial imaging of Right pleural effusion CT C/A/P: marked enlarged prostate. Right perirenal soft tissue stranding. Interval development of small amount of fluid accumulation along the Right anterior and posterior pararenal fasciae. Interval development of mild nonspecific soft tissue stranding adjacent to the inferior border of the cecum. Small amount of subcutaneous air is visualized along the Right anterior pelvis. Small hepatic cysts. S/P cholecystectomy. Dilated CBD 1.4cm diameter. Mod to large hiatal hernia Renal US: min-mild b/l hydronephrosis 1. Acute Encephalopathy secondary to Uremia/dehydration Mental Status improved Imaging as above. Urine Cx - no growth. 2. MAXWELL secondary to Dehydration + Obstructive Uropathy - resolved Bilateral Hydronephrosis on Renal US Grady in situ (clear urine), Tamsulosin started. Renal function improving. Continue IV hydration Urology and Nephrology following. Further plan for Cystoscopy as per Urology. 3. Acute Rhabdomyolysis sec to lying on floor - improving, continue IV hydration. 4. POD 7 s/p Inguinal Hernia Repair Surgery consulted - no acute post-op issues. 5. 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 6. Cerebrovascular Disease - chronic infarcts on CT Head - started on Aspirin. To start Statin once CPK normalizes. MRI Brain ordered. 7. RML opacity on CT, likely atelectasis, no infective symptoms - recommend incentive spirometer and out-patient follow up with repeat CT and Pulmonary referral. 8. Hypophosphatemia - repleted. DVT Px - Heparin SQ
[2020-03-17] MEDS: SODIUM CHLORIDE 0.45% 1,000 ML IV SCH ×3 (06:06→22:57)
[2020-03-17] MEDS: HEPARIN NA (PORCINE) 5,000 UNITS/ML 1ML VIAL SQ SCH ×3 (06:08→22:51)
--- NOTE | 2020-03-17 06:26 | HP ---
DATE OF ADMISSION: 03/14/2020 HISTORY OF PRESENT ILLNESS: Patient is an 79-year-old male who came in in acute urinary retention, bilateral hydroureteronephrosis and azotemia. His repeat renal ultrasound now reveals minimal bilateral hydronephrosis. His obstructive uropathy has resolved since the Grady catheter has been introduced. His renal function is improving. PHYSICAL EXAMINATION: Vital Signs: Presently the patient is afebrile, blood pressure 142/84. LABORATORY DATA: His white count is 4.3, BUN is 19.9, creatinine is 0.7. Urine culture reveals no growth. PLAN: Is for cystoscopy and possible TUR if medically okay. Hamzah [id number]
[2020-03-17 08:19] LABS: HEMATOCRIT 31.6 % (35.4-49); HEMOGLOBIN 10.8 GM/dL (11.7-16.9); MCH 30.5 pg (25.7-33.7); MCHC 34.2 g/dl (32.0-35.9); MEAN CELL VOLUME 89.2 fl (80-96); MEAN PLT VOLUME 8.1 fl (7.5-11.1); PLATELET COUNT 163 K/MM3 (134-434); RBC 3.55 M/mm3 (4.00-5.60); RDW 13.9 % (11.9-15.9); WHITE BLOOD COUNT 4.3 K/mm3 (4.0-10.0)
[2020-03-17 08:46] LABS: BLOOD UREA NITROGEN 17.3 mg/dL (7-18); CALCIUM 7.1 mg/dL (8.5-10.1); CREATININE 0.7 mg/dL (0.55-1.3); MAGNESIUM 1.7 mg/dL (1.8-2.4); PHOSPHOROUS 2.1 mg/dL (2.5-4.9); POTASSIUM 3.7 mmol/L (3.5-5.1)
[2020-03-17] MEDS ORDERED: POTASSIUM PHOSPHATE 30 MM in SODIUM CHLORIDE 500 ML IVPB ONE (08:54)
[2020-03-17] MEDS ORDERED: MAGNESIUM 2GM/50ML STERILE WATER IVPB IVPB ONE (09:00)
--- NOTE | 2020-03-17 09:29 | PN ---
Progress Note (short form) - Note Progress Note: NEUROSURGERY No H/A, or visual changes. HEENT- NC/AT; neck- mild tenderness mid neck on L; Cor- RR; Lungs- CTA B; Abd- benign; Ext- no sign of DVT Speech with occ word finding difficulties CN- intact; Motor- 5 except R hand intrinsics 4+/5; Sensation- intact LT; DTR- hyporeflexic; b ankle clonus 4-5 beats BUN/Cr- 17.3/0.[address]- R sup cerebellar, L frontal white matter, L posterior putamen hypodensity, chronic lacunes?; moderate atrophy, no HCP C spine CT- mild spondylosis, central and R 4-5 paracentral disc protrusion; L C5-6 uncovertebral joint hypertrophy Cerebrovascular Central and R C4-5 paracentral disc protrusion and possible myelopathy Baseline C spine MRI to ascertain degree of neurological element (cord) impingement, though C spine pathology is unlikely cause of his prior mental and residual word finding difficulties Baseline brain MRI to r/o subtle acute ischemia (L frontal or temporal) given mental status/speech changes recently and head CT findings Pt concur with getting noncontrast MRI's done for further elucidate the cause(s) of his recent symptoms
[2020-03-17] MEDS: NAPH,MB-DB/K PH,MBDB POWDER PACKET PO SCH ×2 (10:55→22:51)
[2020-03-17] MEDS: CHOLECALCIFEROL (VIT D3) 400 UNIT (10 MCG) TABLET PO SCH (10:55)
[2020-03-17] MEDS: TAMSULOSIN HCL 0.4 MG CAP PO SCH (10:55)
[2020-03-17] MEDS: ZINC SULFATE 220 MG CAPSULE (FP) PO SCH (10:55)
[2020-03-17] MEDS: ASCORBIC ACID 500 MG TABLET (FP) PO SCH (10:55)
[2020-03-17] MEDS: ASPIRIN 81 MG CHEWABLE TABLETS PO SCH (10:55)
--- NOTE | 2020-03-17 13:40 | PN ---
Teaching Attending Note Name of Resident: Sarah Beth Melton ATTENDING PHYSICIAN STATEMENT I saw and evaluated the patient. I reviewed the resident's note and discussed the case with the resident. I agree with the resident's findings and plan as documented. SUBJECTIVE: Feeling better, no complaints except mild suprapubic tenderness. No fever/chills. OBJECTIVE: Afebrile, Hemodynamically Stable Last Vital Signs Temp Pulse Resp BP Pulse Ox 98.5 F 67 20 154/90 96 03/17/20 06:00 03/17/20 06:00 03/17/20 06:00 03/17/20 06:00 03/17/20 06:00 Heart - S1, S2, RRR Lungs - clear to auscultation Abdomen - Surgical incision scar, mild tenderness, soft, some bruising. Bowel Sounds normal. Extremities - Mild Edema, no calf tenderness. Neuro - AAO x 3. Reduced Power R hand last putter away. - Grady in situ, urine clear Laboratory Results - last 24 hr 03/17/20 03/17/20 06:50 06:50 WBC 4.3 RBC 3.55 L Hgb 10.8 L Hct 31.6 L MCV 89.2 MCH 30.5 MCHC 34.2 RDW 13.9 Plt Count 163 MPV 8.1 Sodium 143 Potassium 3.7 Chloride 112 H Carbon Dioxide 24 Anion Gap 8 BUN 17.3 Creatinine 0.7 Est GFR (CKD-EPI)AfAm 102.58 Est GFR (CKD-EPI)NonAf 88.50 Random Glucose 88 Calcium 7.1 L Phosphorus 2.1 L Magnesium 1.7 L Creatine Kinase 472 H Creatine Kinase Index 0.5 CK-MB (CK-2) 2.4 Current Medications Generic Name Dose Route Start Last Admin Trade Name Scottq PRN Reason Stop Dose Admin Ascorbic Acid 500 mg 03/16/20 10:00 03/17/20 10:55 Vitamin C - PO 500 mg DAILY ÁLVARO Administration Aspirin 81 mg 03/15/20 10:30 03/17/20 10:55 Asa - PO 81 mg DAILY ÁLVARO Administration Cholecalciferol 400 unit 03/16/20 10:00 03/17/20 10:55 Vitamin D3 - PO 400 unit DAILY ÁLVARO Administration Heparin Sodium (Porcine) 5,000 unit 03/14/20 21:15 03/17/20 06:08 Heparin - SQ 5,000 unit TID ÁLVARO Administration Sodium Chloride 1,000 mls @ 75 mls/hr 03/15/20 13:15 03/17/20 06:06 1/2 Normal Saline IV 75 mls/hr ASDIR ÁLVARO Administration Potassium Phosphate 30 mm/ 510 mls @ 63.75 mls/hr 03/17/20 08:54 03/17/20 11:56 Sodium Chloride IVPB 03/17/20 16:53 63.75 mls/hr ONCE ONE Administration 30 MM/8 HR Potassium Phos/Sodium Phos 1 packet 03/16/20 13:00 03/17/20 10:55 Phos-Nak Packet - PO 1 packet BID ÁLVARO Administration Tamsulosin HCl 0.4 mg 03/15/20 09:30 03/17/20 10:55 Flomax - PO 0.4 mg DAILY@0830 ÁLVARO Administration Zinc Sulfate 220 mg 03/15/20 10:30 03/17/20 10:55 Orazinc - PO 220 mg BID ÁLVARO Administration Home Medications Medication Instructions Recorded Unobtainable 03/14/20 ASSESSMENT AND PLAN: 79 year old male with history of BPH, POD 7 s/p inguinal hernia repair (Dr. Sheng Coker, 03/09/2020), brought to ED after being found by neighbor lying on floor - patient reports recent multiple falls, weakness, and some confusion. Head CT: neg acute, chronic Right cerebella infarct, punctate Left basal ganglia infarct C-spine CT: mod-large right paramedian C4-C5 disc herniation, partial imaging of Right pleural effusion CT C/A/P: marked enlarged prostate. Right perirenal soft tissue stranding. Interval development of small amount of fluid accumulation along the Right anterior and posterior pararenal fasciae. Interval development of mild nonspecific soft tissue stranding adjacent to the inferior border of the cecum. Small amount of subcutaneous air is visualized along the Right anterior pelvis. Small hepatic cysts. S/P cholecystectomy. Dilated CBD 1.4cm diameter. Mod to large hiatal hernia Renal US: min-mild b/l hydronephrosis 1. Acute Metabolic Encephalopathy secondary to Uremia/dehydration Mental Status improved with improvement in renal function and IV hydration. Imaging as above. Urine Cx - no growth. Head CT - shows chronic infarcts, will get MRI. 2. MAXWELL secondary to Dehydration + Obstructive Uropathy - resolved Bilateral Hydronephrosis on Renal US Grady in situ (clear urine), Tamsulosin started. Renal function improved Still on IV hydration Urology and Nephrology following. Further plan for Repeat Renal US and Cystoscopy tomorrow as per Urology. 3. Acute Rhabdomyolysis sec to lying on floor - improving with IV hydration. 4. POD 8 s/p Inguinal Hernia Repair Surgery evaluated - no acute post-op issues. 5. 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 6. Cerebrovascular Disease - chronic infarcts on CT Head - started on Aspirin. To start Statin once CPK normalizes. MRI Brain ordered. 7. RML opacity on CT, likely atelectasis, no infective symptoms - recommend incentive spirometer and out-patient follow up with repeat CT and Pulmonary referral. 8. Hypophosphatemia, Hypomagnesemia - repleted. DVT Px - Heparin SQ
--- NOTE | 2020-03-17 17:03 | PN ---
Progress Note, Physician History of Present Illness: Pt seen and examined at bedside. He is awake and alert. He denies shortness of breath. - Current Medication List Current Medications: Active Medications Ascorbic Acid (Vitamin C -) 500 mg PO DAILY [facility] Last Admin: 03/17/20 10:55 Dose: 500 mg Documented by: Aspirin (Asa -) 81 mg PO DAILY [facility] Last Admin: 03/17/20 10:55 Dose: 81 mg Documented by: Cholecalciferol (Vitamin D3 -) 400 unit PO DAILY [facility] Last Admin: 03/17/20 10:55 Dose: 400 unit Documented by: Heparin Sodium (Porcine) (Heparin -) 5,000 unit SQ TID [facility] Last Admin: 03/17/20 14:09 Dose: 5,000 unit Documented by: Sodium Chloride (1/2 Normal Saline) 1,000 mls @ 75 mls/hr IV ASDIR [facility] Last Admin: 03/17/20 14:10 Dose: Not Given Documented by: Potassium Phos/Sodium Phos (Phos-Nak Packet -) 1 packet PO BID [facility] Last Admin: 03/17/20 10:55 Dose: 1 packet Documented by: Tamsulosin HCl (Flomax -) 0.4 mg PO DAILY@0830 [facility] Last Admin: 03/17/20 10:55 Dose: 0.4 mg Documented by: - Objective Vital Signs: Vital Signs Temperature 98.2 F 03/17/20 14:00 Pulse Rate 66 03/17/20 14:00 Respiratory Rate 20 03/17/20 14:00 Blood Pressure 137/90 03/17/20 14:00 O2 Sat by Pulse Oximetry (%) 95 03/17/20 14:00 Constitutional: Yes: Calm Eyes: Yes: Conjunctiva Clear HENT: Yes: Atraumatic Neck: Yes: Supple Cardiovascular: Yes: S1, S2 Respiratory: Yes: CTA Bilaterally Gastrointestinal: Yes: Normal Bowel Sounds, Soft Genitourinary: Yes: Grady Present Musculoskeletal: Yes: WNL Edema: No Neurological: Yes: Oriented Labs: CBC, BMP 03/17/20 06:50 03/17/20 06:50 INR, PTT INR 1.24 (0.83-1.09) H 03/14/20 14:00 Problem List - Problems (1) Acute renal failure Code(s): N17.9 - ACUTE KIDNEY FAILURE, UNSPECIFIED Qualifiers: Acute renal failure type: unspecified Qualified Code(s): N17.9 - Acute kidney failure, unspecified (2) Weakness Code(s): R53.1 - WEAKNESS Assessment/Plan Current Medications Generic Name Dose Route Start Last Admin Trade Name Nancy PRN Reason Stop Dose Admin Ascorbic Acid 500 mg 03/16/20 10:00 03/17/20 10:55 Vitamin C - PO 500 mg DAILY ÁLVARO Administration Aspirin 81 mg 03/15/20 10:30 03/17/20 10:55 Asa - PO 81 mg DAILY ÁLVARO Administration Cholecalciferol 400 unit 03/16/20 10:00 03/17/20 10:55 Vitamin D3 - PO 400 unit DAILY ÁLVARO Administration Heparin Sodium (Porcine) 5,000 unit 03/14/20 21:15 03/17/20 14:09 Heparin - SQ 5,000 unit TID ÁLVARO Administration Sodium Chloride 1,000 mls @ 75 mls/hr 03/15/20 13:15 03/17/20 14:10 1/2 Normal Saline IV Not Given ASDIR ÁLVARO Potassium Phos/Sodium Phos 1 packet 03/16/20 13:00 03/17/20 10:55 Phos-Nak Packet - PO 1 packet BID ÁLVARO Administration Tamsulosin HCl 0.4 mg 03/15/20 09:30 03/17/20 10:55 Flomax - PO 0.4 mg DAILY@0830 ÁLVARO Administration Impression 1. MAXWELL 2. s/p hernia repair 3. hydronephrosis 4. urinary obstruction 5. nsaid use Plan - replace lytes - renal function improved - decrease fluids further - urology evaluation
--- NOTE | 2020-03-17 17:56 | PN ---
Physical Exam: SUBJECTIVE: Patient seen and examined at bedside. denies acute complaints. denies SOB, CP OBJECTIVE: Vital Signs Period Temp Pulse Resp BP Sys/Frias Pulse Ox Last 24 Hr 98.0 F-98.5 F 60-70 18-20 137-155/80-92 92-96 GENERAL: The patient is awake, alert, and fully oriented, in no acute distress. HEAD: Normal with no signs of trauma. LUNGS: Breath sounds equal, clear to auscultation bilaterally, no accessory muscle use. HEART: Regular rate and rhythm, S1, S2 + murmur ABDOMEN: Soft, nontender, nondistended, normoactive bowel sounds, no guarding EXTREMITIES: 2+ pulses, warm, well-perfused, no edema. SKIN: Warm, dry, normal turgor, no rashes or lesions noted + chan CBC, BMP 03/17/20 06:50 03/17/20 06:50 Active Medications Generic Name Dose Route Start Last Admin Trade Name Freq PRN Reason Stop Dose Admin Ascorbic Acid 500 mg 03/16/20 10:00 03/17/20 10:55 Vitamin C - PO 500 mg DAILY ÁLVARO Administration Aspirin 81 mg 03/15/20 10:30 03/17/20 10:55 Asa - PO 81 mg DAILY ÁLVARO Administration Cholecalciferol 400 unit 03/16/20 10:00 03/17/20 10:55 Vitamin D3 - PO 400 unit DAILY ÁLVARO Administration Heparin Sodium (Porcine) 5,000 unit 03/14/20 21:15 03/17/20 14:09 Heparin - SQ 5,000 unit TID ÁLVARO Administration Sodium Chloride 1,000 mls @ 40 mls/hr 03/17/20 17:03 1/2 Normal Saline IV ASDIR ÁLVARO Potassium Phos/Sodium Phos 1 packet 03/16/20 13:00 03/17/20 10:55 Phos-Nak Packet - PO 1 packet BID ÁLVARO Administration Tamsulosin HCl 0.4 mg 03/15/20 09:30 03/17/20 10:55 Flomax - PO 0.4 mg DAILY@0830 ÁLVARO Administration Head CT: neg acute, chronic Right cerebella infarct, punctate Left basal ganglia infarct C-spine CT: mod-large right paramedian C4-C5 disc herniation, partial imaging of Right pleural effusion CT C/A/P: marked enlarged prostate. Right perirenal soft tissue stranding. Interval development of small amount of fluid accumulation along the Right anterior and posterior pararenal fasciae. Interval development of mild nonspecific soft tissue stranding adjacent to the inferior border of the cecum. Small amount of subcutaneous air is visualized along the Right anterior pelvis. Small hepatic cysts. S/P cholecystectomy. Dilated CBD 1.4cm diameter. Mod to lar ge hiatal hernia Renal US: min-mild b/l hydronephrosis ASSESSMENT/PLAN: 79yo M PMH BPH, s/p inguinal hernia repair (Dr. Sheng Coker, 03/09/2020), p/w multiple falls, weakness, and some confusion. Pt is admitted for acute renal failure likely 2/2 obstructive uropathy. pt is planned for cystoscopy tomorrow 03/18 Acute Metabolic Encephalopathy likely 2/2 Uremia and dehydration - currently AOx3 - c/w IVF - CT abdomen/pelvis and renal U/S noted above -Head CT noted, pending MRI - Neuro recs appreciated Acute renal failure likely 2/2 obstructive uropathy - hydronephrosis noted, enlarged prostate noted - CR 6.7--> 0.7 - c/w chan - c/w tamsulosin - urology recs appreciated - plan for cystoscopy tomorrow Fluid collection around R kidney - noted on CT abdomen/ Pelvis - possibly 2/2 extravasation - further imaging to quantify/ assess improvement Acute Rhabdomyolysis - likely 2/2 lying on floor - improving with IV hydration. POD 8 s/p Inguinal Hernia Repair -Surgery evaluated - no acute post-op issues. 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 Cerebrovascular Disease - chronic infarcts on CT Head . pending MRI - started on Aspirin. -will start Statin once CPK normalizes RML opacity on CT - likely atelectasis - no WBC , afebrile - c/w incentive spirometry -out-patient follow up with repeat CT and Pulmonary referral. DVT Px - Heparin SQ ATTENDING PHYSICIAN STATEMENT I saw and evaluated the patient. I reviewed the resident's note and discussed the case with the resident. I agree with the resident's findings and plan as documented. SUBJECTIVE: OBJECTIVE: ASSESSMENT AND PLAN:
[2020-03-18] MEDS: HEPARIN NA (PORCINE) 5,000 UNITS/ML 1ML VIAL SQ SCH (05:24)
[2020-03-18 08:01] LABS: BASO % 0.5 % (0-2.0); EOS % 5.9 % (0-4.5); HEMATOCRIT 31.6 % (35.4-49); HEMOGLOBIN 10.6 GM/dL (11.7-16.9); LYMPH % 15.8 % (8-40); MCHC 33.6 g/dl (32.0-35.9); MEAN CELL VOLUME 89.5 fl (80-96); MEAN PLT VOLUME 7.8 fl (7.5-11.1); MONO % 8.8 % (3.8-10.2); PLATELET COUNT 204 K/MM3 (134-434); RBC 3.53 M/mm3 (4.00-5.60); RDW 14.1 % (11.9-15.9); WHITE BLOOD COUNT 4.9 K/mm3 (4.0-10.0)
[2020-03-18 08:14] LABS: ALBUMIN 2.1 g/dl (3.4-5.0); BILIRUBIN,TOTAL 0.8 mg/dL (0.2-1); BLOOD UREA NITROGEN 12.3 mg/dL (7-18); CALCIUM 7.5 mg/dL (8.5-10.1); CREATININE 0.8 mg/dL (0.55-1.3); MAGNESIUM 1.8 mg/dL (1.8-2.4); PHOSPHOROUS 2.7 mg/dL (2.5-4.9); POTASSIUM 4.4 mmol/L (3.5-5.1); TOT PROT 5.4 g/dl (6.4-8.2)
[2020-03-18] MEDS ORDERED: MAGNESIUM SULF 50% (8.12 MEQ/2 ML-1 GM VIAL) IVPB ONE (09:15)
[2020-03-18] MEDS ORDERED: MAGNESIUM 1GM/D5W - 1 GM/100 ML IVPB IVPB ONE ×2 (10:00→16:00)
--- NOTE | 2020-03-18 10:07 | OP ---
Operative Note - Note: Operative Date: 03/18/20 Pre-Operative Diagnosis: bph wth obstruction Operation: turp/tuvp Findings: trilobar prostate hypertrophy, trabeculated bladder Post-Operative Diagnosis: Same as Pre-op Surgeon: Linda Mendoza Anesthesia: General Specimens Removed: prostate chips Estimated Blood Loss (mls): 0 Drains & Tubes with Location: 24f 30cc 3way chan Drains, Volume Out (mls): 0 Blood Volume Replaced (mls): 0 Fluid Volume Replaced (mls): 0 Operative Report Dictated: Yes
[2020-03-18] MEDS ORDERED: SUCCINYLCHOLINE CHLORIDE 200 MG/10 ML SYRINGE ONE (10:17)
[2020-03-18] MEDS ORDERED: MIDAZOLAM HCL 2 MG/2 ML SINGLE DOSE VIAL ONE (10:17)
[2020-03-18] MEDS ORDERED: PROPOFOL 20 ML ONE (10:17)
[2020-03-18] MEDS ORDERED: LIDOCAINE HCL/PF 2% SDV 5ML VIAL ONE (10:18)
[2020-03-18] MEDS ORDERED: LIDOCAINE HCL 2% JELLY (5 ML/TUBE) ONE (10:18)
[2020-03-18] MEDS ORDERED: DEXAMETHASONE SOD PHOSPHATE 4 MG/1 ML VIAL ONE (10:18)
[2020-03-18] MEDS ORDERED: ceFAZolin 2 GRAM PREMIX BAG IVPB ONE (10:25)
[2020-03-18] MEDS ORDERED: ceFAZolin SODIUM 1 GM VIAL ONE (10:30)
[2020-03-18] MEDS ORDERED: EPHEDRINE SULFATE/0.9% NACL/PF 50 MG/10 ML SYRINGE NR ONE (10:34)
--- NOTE | 2020-03-18 13:43 | CONS ---
DATE OF CONSULTATION: 03/18/2020 DATE OF DICTATION: 03/18/2020 Patient is an 79-year-old male who presented with urinary retention and bilateral hydroureteronephrosis, came in with acute renal failure. This resolved after Grady drainage. He had both a CT scan of the abdomen and pelvis as well as a renal ultrasound. His hydronephrosis has subsided. He has been having severe prostatism over the past year, including frequency, urgency, hesitancy, and feeling of incomplete bladder emptying. He recently underwent bilateral inguinal hernia repair. Presently, his white count is 4.9. Hemoglobin is 10.6 and hematocrit 31.6. His PT/INR is 14/1.2. His COVID is not detected, and his chemistries reveal a BUN of 19.9 and a creatinine of 0.7. Patient will undergo a cystoscopy, TURP. This was explained in detail, and he agrees. BRIAN MOHR M.D. [id number]
[2020-03-18] MEDS ORDERED: LACTATED RINGERS SOLUTION 1,000 ML IV SCH (14:15)
[2020-03-18] MEDS ORDERED: ONDANSETRON 4 MG/2 ML VIAL IVPUSH PRN (14:15)
--- NOTE | 2020-03-18 14:46 | PN ---
Progress Note (short form) - Note Progress Note: NEUROSURGERY No H/A, or visual changes. HEENT- NC/AT; neck- mild tenderness mid neck on L; Cor- RR; Lungs- CTA B; Abd- benign; Ext- no sign of DVT Speech with occ word finding difficulties CN- intact; Motor- 5 except R hand intrinsics 4+/5; Sensation- intact LT; DTR- hyporeflexic; b ankle clonus 4-5 beats BUN/Cr- 17.3/0.[address]- R sup cerebellar, L frontal white matter, L posterior putamen hypodensity, chronic lacunes?; moderate atrophy, no HCP C spine CT- mild spondylosis, central and R 4-5 paracentral disc protrusion; L C5-6 uncovertebral joint hypertrophy Brain MRI- chronic L putamen lacune, periventricular hyperintensity of T2; chronic changes B cerebellum; no acute ischemia C spine MRI- multilevel DDD worst at C4-5, C5-6 and C6-7, central disc protrusion C4-5 with thecal sac and minimal cord impingement; b C5-6 > C6-7 disc bulge with mild foramenal stenosis Cerebrovascular dz- chronic: risk factor modifications C4-5 paracentral disc protrusion and minimal myelopathy Reasonable to manage C spine condition medically only given age and mild symp toms
[2020-03-18] MEDS: SODIUM CHLORIDE 0.45% 1,000 ML IV SCH (15:00)
--- NOTE | 2020-03-18 15:38 | OP ---
DATE OF OPERATION: 03/18/2020 PREOPERATIVE DIAGNOSIS: Obstructing prostate with obstructive azotemia. POSTOPERATIVE DIAGNOSIS: Obstructing prostate with obstructive azotemia. OPERATIVE PROCEDURE: Cystoscopy, transurethral resection of the prostate. ANESTHESIA: General. DESCRIPTION OF PROCEDURE: Under above-stated anesthesia, patient is prepped and draped in the usual sterile manner. He is placed in the dorsal lithotomy position. Cystoscopy revealed trilobar hypertrophy of the prostate. The bladder revealed multiple diverticula. No overt lesions or calculi were seen. A bipolar resectoscope was inserted. Resection of the prostate was commenced in the usual fashion. Prostate chips were evacuated with an Jaman evacuator. Hemostasis was secured with electrocoagulation. The plasma button was inserted and excess tissue was vaporized. Again, no active bleeding was noted. The scope was removed. A 24-[place] 3-way 30-mL Grady catheter was inserted. This was connected to continuous bladder irrigation. The patient tolerated the procedure well. He returned to the recovery room in good condition. Hamzah [id number]
[2020-03-18] MEDS: ASCORBIC ACID 500 MG TABLET (FP) PO SCH (15:56)
[2020-03-18] MEDS: TAMSULOSIN HCL 0.4 MG CAP PO SCH (15:56)
[2020-03-18] MEDS: CHOLECALCIFEROL (VIT D3) 400 UNIT (10 MCG) TABLET PO SCH (15:56)
[2020-03-18] MEDS: ASPIRIN 81 MG CHEWABLE TABLETS PO SCH (15:56)
[2020-03-18] MEDS: NAPH,MB-DB/K PH,MBDB POWDER PACKET PO SCH ×2 (16:02→22:59)
--- NOTE | 2020-03-18 16:03 | PN ---
Progress Note, Physician History of Present Illness: Pt seen and examine at bedside. He appears comfortable. - Current Medication List Current Medications: Active Medications Ascorbic Acid (Vitamin C -) 500 mg PO DAILY [facility] Last Admin: 03/18/20 15:56 Dose: 500 mg Documented by: Aspirin (Asa -) 81 mg PO DAILY [facility] Last Admin: 03/18/20 15:56 Dose: 81 mg Documented by: Cholecalciferol (Vitamin D3 -) 400 unit PO DAILY [facility] Last Admin: 03/18/20 15:56 Dose: 400 unit Documented by: Fentanyl (Sublimaze Injection -) 25 mcg IVPUSH [id number] PRN PRN Reason: PAIN-PACU ORDER X 4 DOSES ONLY Heparin Sodium (Porcine) (Heparin -) 5,000 unit SQ TID [facility] Last Admin: 03/18/20 05:24 Dose: 5,000 unit Documented by: Sodium Chloride (1/2 Normal Saline) 1,000 mls @ 40 mls/hr IV ASDIR [facility] Last Admin: 03/18/20 15:00 Dose: 0 mls Documented by: Lactated Ringer's (Lactated Ringers Solution) 1,000 mls @ 75 mls/hr IV ASDIR [facility] Ondansetron HCl (Zofran Injection) 4 mg IVPUSH Q6H PRN PRN Reason: NAUSEA AND/OR VOMITING Potassium Phos/Sodium Phos (Phos-Nak Packet -) 1 packet PO BID [facility] Last Admin: 03/17/20 22:51 Dose: 1 packet Documented by: Tamsulosin HCl (Flomax -) 0.4 mg PO DAILY@0830 [facility] Last Admin: 03/18/20 15:56 Dose: 0.4 mg Documented by: - Objective Vital Signs: Vital Signs Temperature 98.6 F 03/18/20 15:00 Pulse Rate 68 03/18/20 15:00 Respiratory Rate 16 03/18/20 15:00 Blood Pressure 145/84 03/18/20 15:00 O2 Sat by Pulse Oximetry (%) 100 03/18/20 15:00 Constitutional: Yes: Calm Eyes: Yes: Conjunctiva Clear HENT: Yes: Atraumatic Neck: Yes: Supple Cardiovascular: Yes: S1, S2 Respiratory: Yes: CTA Bilaterally Gastrointestinal: Yes: Normal Bowel Sounds, Soft Genitourinary: Yes: Grady Present Edema: LLE: Trace, RLE: Trace Neurological: Yes: Oriented Psychiatric: Yes: Oriented Labs: CBC, BMP 03/18/20 07:05 03/18/20 07:05 INR, PTT INR 1.24 (0.83-1.09) H 03/14/20 14:00 Problem List - Problems (1) Acute renal failure Code(s): N17.9 - ACUTE KIDNEY FAILURE, UNSPECIFIED Qualifiers: Acute renal failure type: unspecified Qualified Code(s): N17.9 - Acute kidney failure, unspecified (2) Weakness Code(s): R53.1 - WEAKNESS Assessment/Plan Current Medications Generic Name Dose Route Start Last Admin Trade Name Freq PRN Reason Stop Dose Admin Ascorbic Acid 500 mg 03/16/20 10:00 03/18/20 15:56 Vitamin C - PO 500 mg DAILY ÁLVARO Administration Aspirin 81 mg 03/15/20 10:30 03/18/20 15:56 Asa - PO 81 mg DAILY ÁLVARO Administration Cholecalciferol 400 unit 03/16/20 10:00 03/18/20 15:56 Vitamin D3 - PO 400 unit DAILY ÁLVARO Administration Fentanyl 25 mcg 03/18/20 14:15 Sublimaze Injection - IVPUSH [id number] PRN PAIN-PACU ORDER X 4 DOSES ONLY Heparin Sodium (Porcine) 5,000 unit 03/14/20 21:15 03/18/20 05:24 Heparin - SQ 5,000 unit TID ÁLVARO Administration Sodium Chloride 1,000 mls @ 40 mls/hr 03/17/20 17:03 03/18/20 15:00 1/2 Normal Saline IV 0 mls ASDIR ÁLVARO Administration Lactated Ringer's 1,000 mls @ 75 mls/hr 03/18/20 14:15 Lactated Ringers Solution IV ASDIR ÁLVARO Ondansetron HCl 4 mg 03/18/20 14:15 Zofran Injection IVPUSH Q6H PRN NAUSEA AND/OR VOMITING Potassium Phos/Sodium Phos 1 packet 03/16/20 13:00 03/17/20 22:51 Phos-Nak Packet - PO 1 packet BID ÁLVARO Administration Tamsulosin HCl 0.4 mg 03/15/20 09:30 03/18/20 15:56 Flomax - PO 0.4 mg DAILY@0830 ÁLVARO Administration Impression 1. MAXWELL 2. s/p hernia repair 3. hydronephrosis 4. urinary obstruction 5. nsaid use Plan - renal function has improved - cont to monitor - urology follow up - avoid nsaids - maxwell from obstruction - will follow prn
--- NOTE | 2020-03-18 16:34 | PN ---
Physical Exam: SUBJECTIVE: Patient seen and examined. No acute events overnight. Denies SOB, CP, fever/chills, urinary sx. OBJECTIVE: Vital Signs Period Temp Pulse Resp BP Sys/Frias Pulse Ox Last 24 Hr 96.3 F-99 F 55-69 14-20 128-177/61-92 96-100 GENERAL: The patient is awake, alert, and fully oriented, in no acute distress. HEAD: Normal with no signs of trauma. EYES: PERRL, extraocular movements intact, sclera anicteric, conjunctiva clear. No ptosis. ENT: Ears normal, nares patent, oropharynx clear without exudates, moist mucous membranes. NECK: Trachea midline, full range of motion, supple. LUNGS: Breath sounds equal, clear to auscultation bilaterally, no wheezes, no crackles, no accessory muscle use. HEART: Regular rate and rhythm, S1, S2 without murmur, rub or gallop. ABDOMEN: Soft, nontender, nondistended, normoactive bowel sounds, no guarding, no rebound, no hepatosplenomegaly, no masses. EXTREMITIES: 2+ pulses, warm, well-perfused, no edema. NEUROLOGICAL: Cranial nerves II through XII grossly intact. Normal speech, gait not observed. PSYCH: Normal mood, normal affect. SKIN: Warm, dry, normal turgor, no rashes or lesions noted : + chan draining yellow clear urine Laboratory Results - last 24 hr 03/18/20 03/18/20 03/18/20 07:05 07:05 07:05 WBC 4.9 RBC 3.53 L Hgb 10.6 L Hct 31.6 L MCV 89.5 MCH 30.0 MCHC 33.6 RDW 14.1 Plt Count 204 D MPV 7.8 Absolute Neuts (auto) 3.4 Neutrophils % 69.0 Lymphocytes % 15.8 Monocytes % 8.8 Eosinophils % 5.9 H Basophils % 0.5 Nucleated RBC % 0 Sodium 141 Potassium 4.4 Chloride 110 H Carbon Dioxide 26 Anion Gap 5 L BUN 12.3 Creatinine 0.8 Est GFR (CKD-EPI)AfAm 97.10 Est GFR (CKD-EPI)NonAf 83.78 Random Glucose 88 Calcium 7.5 L Phosphorus 2.7 Magnesium 1.8 Total Bilirubin 0.8 AST 54 H ALT 30 Alkaline Phosphatase 74 Creatine Kinase 264 Creatine Kinase Index 0.9 CK-MB (CK-2) 2.4 Total Protein 5.4 L Albumin 2.1 L Active Medications Generic Name Dose Route Start Last Admin Trade Name Nancy PRN Reason Stop Dose Admin Ascorbic Acid 500 mg 03/16/20 10:00 03/18/20 15:56 Vitamin C - PO 500 mg DAILY ÁLVARO Administration Aspirin 81 mg 03/15/20 10:30 03/18/20 15:56 Asa - PO 81 mg DAILY ÁLVARO Administration Cholecalciferol 400 unit 03/16/20 10:00 03/18/20 15:56 Vitamin D3 - PO 400 unit DAILY ÁLVARO Administration Fentanyl 25 mcg 03/18/20 14:15 Sublimaze Injection - IVPUSH [id number] PRN PAIN-PACU ORDER X 4 DOSES ONLY Heparin Sodium (Porcine) 5,000 unit 03/14/20 21:15 03/18/20 05:24 Heparin - SQ 5,000 unit TID ÁLVARO Administration Sodium Chloride 1,000 mls @ 40 mls/hr 03/17/20 17:03 03/18/20 15:00 1/2 Normal Saline IV 0 mls ASDIR ÁLVARO Administration Lactated Ringer's 1,000 mls @ 75 mls/hr 03/18/20 14:15 Lactated Ringers Solution IV ASDIR ÁLVARO Magnesium Sulfate/Dextrose 1 gm in 100 mls @ 100 mls/hr 03/18/20 16:00 03/18/20 16:12 Magnesium 1gm/D5w - IVPB 03/18/20 16:59 100 mls/hr ONCE ONE Administration Ondansetron HCl 4 mg 03/18/20 14:15 Zofran Injection IVPUSH Q6H PRN NAUSEA AND/OR VOMITING Potassium Phos/Sodium Phos 1 packet 03/16/20 13:00 03/18/20 16:02 Phos-Nak Packet - PO 1 packet BID ÁLVARO Administration Tamsulosin HCl 0.4 mg 03/15/20 09:30 03/18/20 15:56 Flomax - PO 0.4 mg DAILY@0830 ÁLVARO Administration ASSESSMENT/PLAN: 79yo M with PMHx of BPH on Tamsulosin, POD6 from b/l indirect inguinal hernia repair ([facility], 03/09/2020) presenting with multiple falls, weakness and found down in home by neighbour and brought to ED, admitted for MAXWELL 2/2 to urinary obstruction in setting of confusion. Chan was inserted which drained urine and pt mentation improved. Chan still inserted. #Urinary obstruction 2/2 to BPH -Nephrology consulted; c/w Chan -Urology consulted; cystoscopy performed today - BPH causing obstruction -C/w Flomax -Resolved with Chan catheter placed by nephrology, continuing to drain urine #MAXWELL -Likely secondary to urinary obstruction, or rhabdomyolysis -Resolved; BUN/Cr 17.3/0.8 (BUN 83.9/Cr 6.7 on admission) -Reactive white count due to dehydration which resolved (10.8 to 4.3) -UCx negative, no UTI #Rhabdomyolysis -CK resolved (708 to 264) -Switched to 1/2 NS at 75cc/hr per nephro #Recent indirect inguinal hernia repair B/L -Ecchymosis overlying lower abdominal and pelvic area -POD 9 -no acute changes #Possible atelectasis vs COVID -COVID negative -Ground glass oapcities seen on CT -Likely atelectasis status post surgery #C4-5 disc herniation -Consulted neurosurg for evaluation -C spine CT and MRI; ok for medical management given age and mild sx Prophylaxis -Heparin 5000u TID FEN -Monitor electrolytes in AM -Renal diet Dispo: Admitted for urinary obstruction and altered state, found to have rhabdomyolysis. Chan placed which resolved symptoms and improved mental status. Being treated with fluids for rhabdo. Cystoscopy done today Visit type - Emergency Visit Emergency Visit: Yes ED Registration Date: 03/14/20 Care time: The patient presented to the Emergency Department on the above date and was hospitalized for further evaluation of their emergent condition. - New Patient This patient is new to me today: No - Critical Care Critical Care patient: No - Medication Review Med list reviewed for High Risk Meds patients 65 and older: Yes ATTENDING PHYSICIAN STATEMENT I saw and evaluated the patient. I reviewed the resident's note and discussed the case with the resident. I agree with the resident's findings and plan as documented. SUBJECTIVE: OBJECTIVE: ASSESSMENT AND PLAN:
--- NOTE | 2020-03-18 17:04 | PN ---
Teaching Attending Note Name of Resident: Harinder Al ATTENDING PHYSICIAN STATEMENT I saw and evaluated the patient. I reviewed the resident's note and discussed the case with the resident. I agree with the resident's findings and plan as documented. SUBJECTIVE: Feeling better, no complaints. No fever/chills. OBJECTIVE: Afebrile, Hemodynamically Stable Last Vital Signs Temp Pulse Resp BP Pulse Ox 98.1 F 64 20 151/93 100 03/18/20 16:36 03/18/20 16:36 03/18/20 16:36 03/18/20 16:36 03/18/20 15:00 Heart - S1, S2, RRR Lungs - clear to auscultation Abdomen - Surgical incision scar, mild tenderness, soft, some bruising. Bowel Sounds normal. Extremities - Mild Edema, no calf tenderness. Neuro - AAO x 3. 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 Laboratory Results - last 24 hr 03/18/20 03/18/20 03/18/20 07:05 07:05 07:05 WBC 4.9 RBC 3.53 L Hgb 10.6 L Hct 31.6 L MCV 89.5 MCH 30.0 MCHC 33.6 RDW 14.1 Plt Count 204 D MPV 7.8 Absolute Neuts (auto) 3.4 Neutrophils % 69.0 Lymphocytes % 15.8 Monocytes % 8.8 Eosinophils % 5.9 H Basophils % 0.5 Nucleated RBC % 0 Sodium 141 Potassium 4.4 Chloride 110 H Carbon Dioxide 26 Anion Gap 5 L BUN 12.3 Creatinine 0.8 Est GFR (CKD-EPI)AfAm 97.10 Est GFR (CKD-EPI)NonAf 83.78 Random Glucose 88 Calcium 7.5 L Phosphorus 2.7 Magnesium 1.8 Total Bilirubin 0.8 AST 54 H ALT 30 Alkaline Phosphatase 74 Creatine Kinase 264 Creatine Kinase Index 0.9 CK-MB (CK-2) 2.4 Total Protein 5.4 L Albumin 2.1 L Current Medications Generic Name Dose Route Start Last Admin Trade Name Freq PRN Reason Stop Dose Admin Ascorbic Acid 500 mg 03/16/20 10:00 03/18/20 15:56 Vitamin C - PO 500 mg DAILY ÁLVARO Administration Aspirin 81 mg 03/15/20 10:30 03/18/20 15:56 Asa - PO 81 mg DAILY ÁLVARO Administration Cholecalciferol 400 unit 03/16/20 10:00 03/18/20 15:56 Vitamin D3 - PO 400 unit DAILY ÁLVARO Administration Fentanyl 25 mcg 03/18/20 14:15 Sublimaze Injection - IVPUSH [id number] PRN PAIN-PACU ORDER X 4 DOSES ONLY Heparin Sodium (Porcine) 5,000 unit 03/14/20 21:15 03/18/20 05:24 Heparin - SQ 5,000 unit TID ÁLVARO Administration Sodium Chloride 1,000 mls @ 40 mls/hr 03/17/20 17:03 03/18/20 15:00 1/2 Normal Saline IV 0 mls ASDIR ÁLVARO Administration Lactated Ringer's 1,000 mls @ 75 mls/hr 03/18/20 14:15 Lactated Ringers Solution IV ASDIR ÁLVARO Ondansetron HCl 4 mg 03/18/20 14:15 Zofran Injection IVPUSH Q6H PRN NAUSEA AND/OR VOMITING Potassium Phos/Sodium Phos 1 packet 03/16/20 13:00 03/18/20 16:02 Phos-Nak Packet - PO 1 packet BID ÁLVARO Administration Tamsulosin HCl 0.4 mg 03/15/20 09:30 03/18/20 15:56 Flomax - PO 0.4 mg DAILY@0830 ÁLVARO Administration Home Medications Medication Instructions Recorded Unobtainable 03/14/20 ASSESSMENT AND PLAN: 79 year old male with history of BPH, POD 7 s/p inguinal hernia repair (Dr. Sheng Coker, 03/09/2020), brought to ED after being found by neighbor lying on floor - patient reports recent multiple falls, weakness, and some confusion. Head CT: neg acute, chronic Right cerebella infarct, punctate Left basal ganglia infarct C-spine CT: mod-large right paramedian C4-C5 disc herniation, partial imaging of Right pleural effusion CT C/A/P: marked enlarged prostate. Right perirenal soft tissue stranding. Interval development of small amount of fluid accumulation along the Right anterior and posterior pararenal fasciae. Interval development of mild nonspecific soft tissue stranding adjacent to the inferior border of the cecum. Small amount of subcutaneous air is visualized along the Right anterior pelvis. Small hepatic cysts. S/P cholecystectomy. Dilated CBD 1.4cm diameter. Mod to large hiatal hernia Renal US: min-mild b/l hydronephrosis 1. Acute Metabolic Encephalopathy secondary to Uremia/dehydration Mental Status improved with improvement in renal function and IV hydration. Imaging as above. Urine Cx - no growth. Head CT - shows chronic infarcts, MRI confirms old ischemic changes, no acute lesions 2. MAXWELL secondary to Dehydration + Obstructive Uropathy - resolved Bilateral Hydronephrosis on Renal US s/p TURP Continue Tamsulosin. Renal function improved Further management as per Urology 3. Acute Rhabdomyolysis sec to lying on floor - improved with IV hydration. 4. POD 9 s/p Inguinal Hernia Repair Surgery evaluated - no acute post-op issues. 5. C4/5 Disc Herniation with Radiculopathy - Neurosurgery recommended MRI C- Spine which shows DJD/Disc herniation, no cord compression - recommend conservative management. 6. Cerebrovascular Disease - chronic infarcts on CT Head/MRI Brain - started on Aspirin. To start Statin once CPK normalizes. 7. RML opacity on CT, likely atelectasis, no infective symptoms - recommend incentive spirometer and out-patient follow up with repeat CT and Pulmonary referral. 8. Hypophosphatemia, Hypomagnesemia - repleted. DVT Px - Heparin SQ
[2020-03-19] MEDS: HEPARIN NA (PORCINE) 5,000 UNITS/ML 1ML VIAL SQ SCH ×2 (06:42→14:04)
[2020-03-19 08:42] LABS: HEMATOCRIT 32.3 % (35.4-49); HEMOGLOBIN 10.7 GM/dL (11.7-16.9); MCH 29.6 pg (25.7-33.7); MEAN CELL VOLUME 89.7 fl (80-96); MEAN PLT VOLUME 7.9 fl (7.5-11.1); PLATELET COUNT 244 K/MM3 (134-434); RBC 3.61 M/mm3 (4.00-5.60); RDW 13.8 % (11.9-15.9); WHITE BLOOD COUNT 10.1 K/mm3 (4.0-10.0)
[2020-03-19 09:09] LABS: BLOOD UREA NITROGEN 15.4 mg/dL (7-18); CALCIUM 7.6 mg/dL (8.5-10.1); CREATININE 0.7 mg/dL (0.55-1.3); PHOSPHOROUS 2.9 mg/dL (2.5-4.9); POTASSIUM 4.5 mmol/L (3.5-5.1)
[2020-03-19] MEDS ORDERED: PT OWN MED DRAWER 7, Y5N ONE (09:39)
[2020-03-19] MEDS: ASCORBIC ACID 500 MG TABLET (FP) PO SCH (09:43)
[2020-03-19] MEDS: TAMSULOSIN HCL 0.4 MG CAP PO SCH (09:43)
[2020-03-19] MEDS: ASPIRIN 81 MG CHEWABLE TABLETS PO SCH (09:43)
[2020-03-19] MEDS: CHOLECALCIFEROL (VIT D3) 400 UNIT (10 MCG) TABLET PO SCH (09:44)
--- NOTE | 2020-03-19 13:40 | PN ---
Physical Exam: SUBJECTIVE: Patient seen and examined this morning, patient noted to have hematuria draining overnight. OBJECTIVE: Vital Signs Period Temp Pulse Resp BP Sys/Frias Pulse Ox Last 24 Hr 98 F-99 F 56-93 14-20 117-152/61-93 90-100 GENERAL: The patient is awake, alert, and fully oriented, in no acute distress. EYES: PERRL, extraocular movements intact, ENT: exudates, moist mucous membranes. LUNGS: Breath sounds equal, clear to auscultation bilaterally, no wheezes, no crackles, no accessory muscle use. HEART: Regular rate and rhythm, S1, S2 without murmur, rub or gallop. ABDOMEN: Soft, nontender, nondistended, normoactive bowel sounds, EXTREMITIES: 2+ pulses, warm, well-perfused, no edema. : chan in place with CBI SKIN: Warm, dry, normal turgor, no rashes or lesions noted Laboratory Results - last 24 hr 03/19/20 03/19/20 07:21 07:21 WBC 10.1 H RBC 3.61 L Hgb 10.7 L Hct 32.3 L MCV 89.7 MCH 29.6 MCHC 33.0 RDW 13.8 Plt Count 244 MPV 7.9 Sodium 138 Potassium 4.5 Chloride 107 Carbon Dioxide 25 Anion Gap 7 L BUN 15.4 Creatinine 0.7 Est GFR (CKD-EPI)AfAm 102.58 Est GFR (CKD-EPI)NonAf 88.50 Random Glucose 90 Calcium 7.6 L Phosphorus 2.9 Magnesium 2.0 Creatine Kinase 103 Active Medications Generic Name Dose Route Start Last Admin Trade Name Scottq PRN Reason Stop Dose Admin Ascorbic Acid 500 mg 03/16/20 10:00 03/19/20 09:43 Vitamin C - PO 500 mg DAILY ÁLVARO Administration Aspirin 81 mg 03/15/20 10:30 03/19/20 09:43 Asa - PO 81 mg DAILY ÁLVARO Administration Cholecalciferol 400 unit 03/16/20 10:00 03/19/20 09:44 Vitamin D3 - PO 400 unit DAILY ÁLVARO Administration Heparin Sodium (Porcine) 5,000 unit 03/14/20 21:15 03/19/20 06:42 Heparin - SQ 5,000 unit TID ÁLVARO Administration Sodium Chloride 1,000 mls @ 40 mls/hr 03/17/20 17:03 03/18/20 15:00 1/2 Normal Saline IV 0 mls ASDIR ÁLVARO Administration Tamsulosin HCl 0.4 mg 03/15/20 09:30 03/19/20 09:43 Flomax - PO 0.4 mg DAILY@0830 ÁLVARO Administration ASSESSMENT/PLAN: Patient is a 79yo M with PMHx of BPH on Tamsulosin, POD6 from b/l indirect inguinal hernia repair (Sheng Coker, 03/09/2020 who was admitted for metabolic enchepalopathy 2/2 to urinary obstruction from BPH. #Metabolic encephalopathy 2/2 to urinary obstruction from BPH - now resolved - patient s/p TURP with CBI and chan in place - follow up with Urology for dispo instructions regarding chan - monitor mental status continue Tamsulosin - bcx and ucx negative #MAXWELL - 2/2 to urniary obstruction - now resolved - continue to trend creatinine - 1/2 NS @ 40, consider dcing with nephro eval #Rhabdomyolysis - CK resolved #C4-C5 disc herniation - evaluated by neurosurgery - recommends managing medically C spine CT- mild spondylosis, central and R 4-5 paracentral disc protrusion; L C5-6 uncovertebral joint hypertrophy Brain MRI- chronic L putamen lacune, periventricular hyperintensity of T2; chronic changes B cerebellum; no acute ischemia C spine MRI- multilevel DDD worst at C4-5, C5-6 and C6-7, central disc protrusion C4-5 with thecal sac and minimal cord impingement; b C5-6 > C6-7 disc #DVT ppx - heparin tid Dispo: continue to monitor patient, f/u urology for dispo instructions Visit type - Emergency Visit Emergency Visit: No - New Patient This patient is new to me today: Yes Date on this admission: 03/19/20 - Critical Care Critical Care patient: No - Medication Review Med list reviewed for High Risk Meds patients 65 and older: Yes ATTENDING PHYSICIAN STATEMENT I saw and evaluated the patient. I reviewed the resident's note and discussed the case with the resident. I agree with the resident's findings and plan as documented. SUBJECTIVE: OBJECTIVE: ASSESSMENT AND PLAN:
--- NOTE | 2020-03-19 15:04 | PN ---
Teaching Attending Note Name of Resident: Nakia Elam ATTENDING PHYSICIAN STATEMENT I saw and evaluated the patient. I reviewed the resident's note and discussed the case with the resident. I agree with the resident's findings and plan as documented. SUBJECTIVE: Feeling well, no complaints. No fever/chills. Mild hematuria ongoing on CBI. OBJECTIVE: Afebrile, Hemodynamically Stable Last Vital Signs Temp Pulse Resp BP Pulse Ox 98.1 F 93 H 20 117/78 98% RA 03/19/20 10:03/19/20 10:03/19/20 10:03/19/20 10:03/19/20 10:00 Heart - S1, S2, RRR Lungs - clear to auscultation Abdomen - kaden-umbilical Surgical incision scar, mild tenderness, soft, some bruising. Bowel Sounds normal. Extremities - Mild edema, no calf tenderness. Neuro - AAO x 3. 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 Laboratory Results - last 24 hr 03/19/20 03/19/20 07:21 07:21 WBC 10.1 H RBC 3.61 L Hgb 10.7 L Hct 32.3 L MCV 89.7 MCH 29.6 MCHC 33.0 RDW 13.8 Plt Count 244 MPV 7.9 Sodium 138 Potassium 4.5 Chloride 107 Carbon Dioxide 25 Anion Gap 7 L BUN 15.4 Creatinine 0.7 Est GFR (CKD-EPI)AfAm 102.58 Est GFR (CKD-EPI)NonAf 88.50 Random Glucose 90 Calcium 7.6 L Phosphorus 2.9 Magnesium 2.0 Creatine Kinase 103 Current Medications Generic Name Dose Route Start Last Admin Trade Name Scottq PRN Reason Stop Dose Admin Ascorbic Acid 500 mg 03/16/20 10:00 03/19/20 09:43 Vitamin C - PO 500 mg DAILY ÁLVARO Administration Aspirin 81 mg 03/15/20 10:30 03/19/20 09:43 Asa - PO 81 mg DAILY ÁLVARO Administration Cholecalciferol 400 unit 03/16/20 10:00 03/19/20 09:44 Vitamin D3 - PO 400 unit DAILY ÁLVARO Administration Heparin Sodium (Porcine) 5,000 unit 03/14/20 21:15 03/19/20 14:04 Heparin - SQ 5,000 unit TID ÁLVARO Administration Sodium Chloride 1,000 mls @ 40 mls/hr 03/17/20 17:03 03/18/20 15:00 1/2 Normal Saline IV 0 mls ASDIR ÁLVARO Administration Tamsulosin HCl 0.4 mg 03/15/20 09:30 03/19/20 09:43 Flomax - PO 0.4 mg DAILY@0830 ÁLVARO Administration Home Medications Medication Instructions Recorded Unobtainable 03/14/20 ASSESSMENT AND PLAN: 79 year old male with history of BPH, s/p inguinal hernia repair (Dr. Sheng Coker, 03/09/2020), brought to ED after being found by neighbor lying on floor - patient reports recent multiple falls, weakness, and some confusion. Head CT: neg acute, chronic Right cerebella infarct, punctate Left basal ganglia infarct C-spine CT: mod-large right paramedian C4-C5 disc herniation, partial imaging of Right pleural effusion CT C/A/P: marked enlarged prostate. Right perirenal soft tissue stranding. Interval development of small amount of fluid accumulation along the Right anterior and posterior pararenal fasciae. Interval development of mild nonspecific soft tissue stranding adjacent to the inferior border of the cecum. Small amount of subcutaneous air is visualized along the Right anterior pelvis. Small hepatic cysts. S/P cholecystectomy. Dilated CBD 1.4cm diameter. Mod to large hiatal hernia Renal US: min-mild b/l hydronephrosis 1. Acute Metabolic Encephalopathy secondary to Uremia/Dehydration Mental Status improved, now AAO x 3, with improvement in renal function and IV hydration. Imaging as above. Urine Cx - no growth. Head CT - shows chronic infarcts, MRI confirms old ischemic changes, no acute lesions 2. MAXWELL secondary to Dehydration + Obstructive Uropathy - resolved Bilateral Hydronephrosis on Renal US s/p Cystoscopy/TURP 03/18 Continue Tamsulosin. Renal function improved CBI ongoing, further management as per Urology 3. Acute Rhabdomyolysis sec to lying on floor - improved with IV hydration. 4. POD 10 s/p Inguinal Hernia Repair Surgery evaluated - no acute post-op issues. 5. C4/5 Disc Herniation with Radiculopathy - Neurosurgery recommended MRI C- Spine which shows DJD/Disc herniation, no cord compression - recommend conservative management. 6. Cerebrovascular Disease - chronic infarcts on CT Head/MRI Brain - started on Aspirin. To start Statin once CPK normalizes. 7. RML opacity on CT, likely atelectasis, no infective symptoms - recommend incentive spirometer and out-patient follow up with repeat CT and Pulmonary referral. 8. Hypophosphatemia, Hypomagnesemia - repleted. DVT Px - Heparin SQ held due to mild hematuria on CBI.
--- NOTE | 2020-03-19 21:09 | PN ---
Progress Note (short form) - Note Progress Note: UROLOGY POD#1, S/P TURP/TUVP, MATAMOROS WITH CBI IS BLOOD TINGED, NO CLOTS, ABD. IS SOFT, N/T. PLAN-D/C CBI IN AM AND ENCOURAGE PO FLUIDS AND AMBULATION.
[2020-03-20 07:58] LABS: HEMATOCRIT 31.6 % (35.4-49); HEMOGLOBIN 10.6 GM/dL (11.7-16.9); MCHC 33.4 g/dl (32.0-35.9); MEAN CELL VOLUME 89.7 fl (80-96); MEAN PLT VOLUME 7.7 fl (7.5-11.1); PLATELET COUNT 272 K/MM3 (134-434); RBC 3.53 M/mm3 (4.00-5.60); RDW 14.1 % (11.9-15.9); WHITE BLOOD COUNT 7.1 K/mm3 (4.0-10.0)
[2020-03-20 08:10] LABS: ALBUMIN 2.3 g/dl (3.4-5.0); BILIRUBIN,TOTAL 0.4 mg/dL (0.2-1); BLOOD UREA NITROGEN 12.1 mg/dL (7-18); CALCIUM 7.7 mg/dL (8.5-10.1); CREATININE 0.8 mg/dL (0.55-1.3); MAGNESIUM 1.9 mg/dL (1.8-2.4); PHOSPHOROUS 2.8 mg/dL (2.5-4.9); POTASSIUM 4.5 mmol/L (3.5-5.1); TOT PROT 5.6 g/dl (6.4-8.2)
[2020-03-20] MEDS: ASCORBIC ACID 500 MG TABLET (FP) PO SCH (09:37)
[2020-03-20] MEDS: ASPIRIN 81 MG CHEWABLE TABLETS PO SCH (09:37)
[2020-03-20] MEDS: CHOLECALCIFEROL (VIT D3) 400 UNIT (10 MCG) TABLET PO SCH (09:37)
[2020-03-20] MEDS: TAMSULOSIN HCL 0.4 MG CAP PO SCH (09:37)
--- NOTE | 2020-03-20 11:41 | PN ---
Progress Note (short form) - Note Progress Note: UROLOGY NOTE 79 Y/O Male patient S/P TUVP 03/18 on chan catheter doing well pink urine. Plan: D/C chan catheter tomorrow AM
--- NOTE | 2020-03-20 15:14 | PN ---
Progress Note (short form) - Note Progress Note: SUBJECTIVE: Feels well, no complaints. No abdominal/flank pain. No fever/chills. CBI stopped, blood tinged urine in chan. OBJECTIVE: Afebrile, Hemodynamically Stable Last Vital Signs Temp Pulse Resp BP Pulse Ox 98.5 F 111 H 20 130/76 94 L 03/20/20 14:00 03/20/20 14:00 03/20/20 14:00 03/20/20 14:03/20/20 14:00 Heart - S1, S2, RRR Lungs - clear to auscultation, mildly decreased air entry at bases. Abdomen - kaden-umbilical Surgical incision scar, mild tenderness, soft, some bruising. Bowel Sounds normal. Extremities - Mild edema, no calf tenderness. Neuro - AAO x 3. 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 - blood tinged urine via chan Laboratory Results - last 24 hr 03/20/20 03/20/20 06:40 06:40 WBC 7.1 RBC 3.53 L Hgb 10.6 L Hct 31.6 L MCV 89.7 MCH 30.0 MCHC 33.4 RDW 14.1 Plt Count 272 MPV 7.7 Sodium 140 Potassium 4.5 Chloride 108 H Carbon Dioxide 25 Anion Gap 7 L BUN 12.1 Creatinine 0.8 Est GFR (CKD-EPI)AfAm 97.10 Est GFR (CKD-EPI)NonAf 83.78 Random Glucose 90 Calcium 7.7 L Phosphorus 2.8 Magnesium 1.9 Total Bilirubin 0.4 AST 50 H ALT 48 Alkaline Phosphatase 81 Total Protein 5.6 L Albumin 2.3 L Current Medications Generic Name Dose Route Start Last Admin Trade Name Nancy PRN Reason Stop Dose Admin Ascorbic Acid 500 mg 03/16/20 10:00 03/20/20 09:37 Vitamin C - PO 500 mg DAILY ÁLVARO Administration Aspirin 81 mg 03/15/20 10:30 03/20/20 09:37 Asa - PO 81 mg DAILY ÁLVARO Administration Cholecalciferol 400 unit 03/16/20 10:00 03/20/20 09:37 Vitamin D3 - PO 400 unit DAILY ÁLVARO Administration Heparin Sodium (Porcine) 5,000 unit 03/14/20 21:15 03/19/20 14:04 Heparin - SQ 5,000 unit TID ÁLVARO Administration Tamsulosin HCl 0.4 mg 03/15/20 09:30 03/20/20 09:37 Flomax - PO 0.4 mg DAILY@0830 ÁLVARO Administration Home Medications Medication Instructions Recorded Unobtainable 03/14/20 ASSESSMENT AND PLAN: 79 year old male with history of BPH, s/p inguinal hernia repair (Dr. Sheng Coker, 03/09/2020), brought to ED after being found by neighbor lying on floor - patient reports recent multiple falls, weakness, and some confusion. Head CT: neg acute, chronic Right cerebella infarct, punctate Left basal ganglia infarct C-spine CT: mod-large right paramedian C4-C5 disc herniation, partial imaging of Right pleural effusion CT C/A/P: marked enlarged prostate. Right perirenal soft tissue stranding. Interval development of small amount of fluid accumulation along the Right anterior and posterior pararenal fasciae. Interval development of mild nonspecific soft tissue stranding adjacent to the inferior border of the cecum. Small amount of subcutaneous air is visualized along the Right anterior pelvis. Small hepatic cysts. S/P cholecystectomy. Dilated CBD 1.4cm diameter. Mod to large hiatal hernia Repeat CT A/P 03/20 - Improvement in R perirenal collection. Renal US: min-mild b/l hydronephrosis 1. Acute Metabolic Encephalopathy secondary to Uremia/Dehydration Mental Status improved, now AAO x 3, with improvement in renal function Imaging as above. Urine Cx - no growth. Head CT - shows chronic infarcts, MRI confirms old ischemic changes, no acute lesions 2. MAXWELL secondary to Dehydration + Obstructive Uropathy - resolved Bilateral Hydronephrosis on Renal US POD 2 s/p Cystoscopy/TURP 03/18 Continue Tamsulosin. Renal function improved CBI stopped, for TOV in AM as per Urology. 3. Acute Rhabdomyolysis sec to lying on floor - improved with IV hydration. 4. POD 11 s/p Inguinal Hernia Repair Surgery evaluated - no acute post-op issues. 5. C4/5 Disc Herniation with Radiculopathy - Neurosurgery recommended MRI C- Spine which shows DJD/Disc herniation, no cord compression - recommend conservative management. 6. Cerebrovascular Disease - chronic infarcts on CT Head/MRI Brain - started on Aspirin. To start Statin once CPK normalizes. 7. RML opacity on CT, likely atelectasis, no infective symptoms - recommend incentive spirometer and out-patient follow up with repeat CT and Pulmonary referral. 8. Hypophosphatemia, Hypomagnesemia - repleted. DVT Px - Heparin SQ held due to mild hematuria. SCDs. Visit type - Emergency Visit Emergency Visit: Yes ED Registration Date: 03/14/20 Care time: The patient presented to the Emergency Department on the above date and was hospitalized for further evaluation of their emergent condition. - New Patient This patient is new to me today: No - Critical Care Critical Care patient: No - Discharge Referral Referred to [facility] Med P.C.: No - Medication Review Med list reviewed for High Risk Meds patients 65 and older: Yes
[2020-03-21] MEDS ORDERED: PT OWN MED DRAWER 7, Y5N ONE (09:17)
[2020-03-21] MEDS: TAMSULOSIN HCL 0.4 MG CAP PO SCH (09:20)
[2020-03-21] MEDS: CHOLECALCIFEROL (VIT D3) 400 UNIT (10 MCG) TABLET PO SCH (09:20)
[2020-03-21] MEDS: ASCORBIC ACID 500 MG TABLET (FP) PO SCH (09:20)
[2020-03-21] MEDS: ASPIRIN 81 MG CHEWABLE TABLETS PO SCH (09:20)
--- NOTE | 2020-03-21 14:23 | PN ---
Progress Note, Physician History of Present Illness: Pt seen and examined at bedside. He is awake and alert. He denies shortness of breath. - Current Medication List Current Medications: Active Medications Ascorbic Acid (Vitamin C -) 500 mg PO DAILY [facility] Last Admin: 03/21/20 09:20 Dose: 500 mg Documented by: Aspirin (Asa -) 81 mg PO DAILY [facility] Last Admin: 03/21/20 09:20 Dose: 81 mg Documented by: Cholecalciferol (Vitamin D3 -) 400 unit PO DAILY [facility] Last Admin: 03/21/20 09:20 Dose: 400 unit Documented by: Heparin Sodium (Porcine) (Heparin -) 5,000 unit SQ TID [facility] Last Admin: 03/19/20 14:04 Dose: 5,000 unit Documented by: Tamsulosin HCl (Flomax -) 0.4 mg PO DAILY@0830 [facility] Last Admin: 03/21/20 09:20 Dose: 0.4 mg Documented by: - Objective Vital Signs: Vital Signs Temperature 98.2 F 03/21/20 10:19 Pulse Rate 98 H 03/21/20 10:19 Respiratory Rate 03/21/20 10:19 Blood Pressure 121/88 03/21/20 10:19 O2 Sat by Pulse Oximetry (%) 95 03/21/20 10:19 Constitutional: Yes: Calm Eyes: Yes: Conjunctiva Clear HENT: Yes: Atraumatic Neck: Yes: Supple Cardiovascular: Yes: S1, S2 Respiratory: Yes: CTA Bilaterally Gastrointestinal: Yes: Soft Genitourinary: Yes: WNL Musculoskeletal: Yes: WNL Edema: No Neurological: Yes: Oriented Psychiatric: Yes: Oriented Labs: CBC, BMP 03/20/20 06:40 03/20/20 06:40 INR, PTT INR 1.24 (0.83-1.09) H 03/14/20 14:00 Problem List - Problems (1) Acute renal failure Code(s): N17.9 - ACUTE KIDNEY FAILURE, UNSPECIFIED Qualifiers: Acute renal failure type: unspecified Qualified Code(s): N17.9 - Acute kidney failure, unspecified (2) Weakness Code(s): R53.1 - WEAKNESS Assessment/Plan Current Medications Generic Name Dose Route Start Last Admin Trade Name Freq PRN Reason Stop Dose Admin Ascorbic Acid 500 mg 03/16/20 10:00 03/21/20 09:20 Vitamin C - PO 500 mg DAILY ÁLVARO Administration Aspirin 81 mg 03/15/20 10:30 03/21/20 09:20 Asa - PO 81 mg DAILY ÁLVARO Administration Cholecalciferol 400 unit 03/16/20 10:00 03/21/20 09:20 Vitamin D3 - PO 400 unit DAILY ÁLVARO Administration Heparin Sodium (Porcine) 5,000 unit 03/14/20 21:15 03/19/20 14:04 Heparin - SQ 5,000 unit TID ÁLVARO Administration Tamsulosin HCl 0.4 mg 03/15/20 09:30 03/21/20 09:20 Flomax - PO 0.4 mg DAILY@0830 ÁLVARO Administration Impression 1. MAXWELL 2. s/p hernia repair 3. hydronephrosis 4. urinary obstruction 5. 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
[2020-03-21 14:43] LABS: BASO % 0.5 % (0-2.0); EOS % 2.8 % (0-4.5); HEMATOCRIT 35.6 % (35.4-49); HEMOGLOBIN 12.1 GM/dL (11.7-16.9); LYMPH % 10.7 % (8-40); MEAN CELL VOLUME 90.9 fl (80-96); MEAN PLT VOLUME 7.7 fl (7.5-11.1); MONO % 6.4 % (3.8-10.2); NEUT % 79.6 % (42.8-82.8); PLATELET COUNT 406 K/MM3 (134-434); RBC 3.91 M/mm3 (4.00-5.60); RDW 14.6 % (11.9-15.9); WHITE BLOOD COUNT 9.8 K/mm3 (4.0-10.0)
--- NOTE | 2020-03-21 15:01 | PN ---
Physical Exam: SUBJECTIVE: Patient seen and examined. CBI stopped yesterday. Denies any urinary issues, chest pain, SOB, fever/chills. OBJECTIVE: Vital Signs Period Temp Pulse Resp BP Sys/Frias Pulse Ox Last 24 Hr 98.2 F-98.7 F 72-98 20-20 116-128/74-88 93-95 GENERAL: The patient is awake, alert, and fully oriented, in no acute distress. HEAD: Normal with no signs of trauma. EYES: PERRL, extraocular movements intact, sclera anicteric, conjunctiva clear. No ptosis. ENT: Ears normal, nares patent, oropharynx clear without exudates, moist mucous membranes. NECK: Trachea midline, full range of motion, supple. LUNGS: Breath sounds equal, clear to auscultation bilaterally, no wheezes, no crackles, no accessory muscle use. HEART: Regular rate and rhythm, S1, S2 without murmur, rub or gallop. ABDOMEN: Soft, nontender, nondistended, normoactive bowel sounds, no guarding, no rebound, no hepatosplenomegaly, no masses. Periumbilical surgical incision scar, bruising. EXTREMITIES: 2+ pulses, warm, well-perfused, no edema. NEUROLOGICAL: Cranial nerves II through XII grossly intact. Normal speech, gait not observed. PSYCH: Normal mood, normal affect. SKIN: Warm, dry, normal turgor, no rashes or lesions noted : Grady in place with amy blood Active Medications Generic Name Dose Route Start Last Admin Trade Name Freq PRN Reason Stop Dose Admin Ascorbic Acid 500 mg 03/16/20 10:00 03/21/20 09:20 Vitamin C - PO 500 mg DAILY ÁLVARO Administration Aspirin 81 mg 03/15/20 10:30 03/21/20 09:20 Asa - PO 81 mg DAILY ÁLVARO Administration Cholecalciferol 400 unit 03/16/20 10:00 03/21/20 09:20 Vitamin D3 - PO 400 unit DAILY ÁLVARO Administration Heparin Sodium (Porcine) 5,000 unit 03/14/20 21:15 03/19/20 14:04 Heparin - SQ 5,000 unit TID ÁLVARO Administration Tamsulosin HCl 0.4 mg 03/15/20 09:30 03/21/20 09:20 Flomax - PO 0.4 mg DAILY@0830 ÁLVARO Administration ASSESSMENT/PLAN: 79yo M with PMHx of BPH on Tamsulosin, POD6 from b/l indirect inguinal hernia repair (Sheng Coker, 03/09/2020) presenting with multiple falls, weakness and found down in home by neighbour and brought to ED, admitted for MAXWELL 2/2 to urinary obstruction in setting of confusion. Grady was inserted which drained urine and pt mentation improved. Grady still inserted. #Urinary obstruction 2/2 to BPH -Nephrology consulted -Urology consulted; cystoscopy POD 2, CBI stopped on 03/20; Grady removed for TOV -C/w Flomax #MAXWELL -Likely secondary to urinary obstruction, or rhabdomyolysis -Resolved; BUN/Cr 17.3/0.8 (BUN 83.9/Cr 6.7 on admission) -Reactive white count due to dehydration which resolved (10.8 to 4.3) -UCx negative, no UTI #Rhabdomyolysis -CK resolved (708 to 264) -Switched to 1/2 NS at 75cc/hr per nephro #Recent indirect inguinal hernia repair B/L -Ecchymosis overlying lower abdominal and pelvic area -POD 12 -no acute changes #Possible atelectasis vs COVID -COVID negative -Ground glass oapcities seen on CT -Likely atelectasis status post surgery #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 Cystoscopy showing BPH with obstruction. CBI stopped 03/20, TOV on 03/21. Visit type - Emergency Visit Emergency Visit: Yes ED Registration Date: 03/14/20 Care time: The patient presented to the Emergency Department on the above date and was hospitalized for further evaluation of their emergent condition. - New Patient This patient is new to me today: No - Critical Care Critical Care patient: No - Medication Review Med list reviewed for High Risk Meds patients 65 and older: Yes ATTENDING PHYSICIAN STATEMENT I saw and evaluated the patient. I reviewed the resident's note and discussed the case with the resident. I agree with the resident's findings and plan as documented. SUBJECTIVE: OBJECTIVE: ASSESSMENT AND PLAN:
--- NOTE | 2020-03-21 15:21 | PN ---
Teaching Attending Note Name of Resident: Harinder Al ATTENDING PHYSICIAN STATEMENT I saw and evaluated the patient. I reviewed the resident's note and discussed the case with the resident. I agree with the resident's findings and plan as documented. SUBJECTIVE: Feels well, no complaints. No abdominal/flank pain. No fever/chills. CBI stopped, bloody urine in chan today. OBJECTIVE: Afebrile, Hemodynamically Stable Last Vital Signs Temp Pulse Resp BP Pulse Ox 97.6 F 89 20 129/70 95 03/21/20 14:00 03/21/20 14:00 03/21/20 14:00 03/21/20 14:00 03/21/20 14:00 Heart - S1, S2, RRR Lungs - clear to auscultation, mildly decreased air entry at bases. Abdomen - kaden-umbilical Surgical incision scar, mild tenderness, soft, some bruising. Bowel Sounds normal. Extremities - Mild edema, no calf tenderness. Neuro - AAO x 3. 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 - bloody urine via chan Laboratory Results - last 24 hr 03/21/20 14:00 WBC 9.8 RBC 3.91 L Hgb 12.1 Hct 35.6 MCV 90.9 MCH 31.0 MCHC 34.0 RDW 14.6 Plt Count 406 D MPV 7.7 Absolute Neuts (auto) 7.8 Neutrophils % 79.6 Lymphocytes % 10.7 D Monocytes % 6.4 Eosinophils % 2.8 Basophils % 0.5 Nucleated RBC % 0 Current Medications Generic Name Dose Route Start Last Admin Trade Name Freq PRN Reason Stop Dose Admin Ascorbic Acid 500 mg 03/16/20 10:00 03/21/20 09:20 Vitamin C - PO 500 mg DAILY ÁLVARO Administration Aspirin 81 mg 03/15/20 10:30 03/21/20 09:20 Asa - PO 81 mg DAILY ÁLVARO Administration Cholecalciferol 400 unit 03/16/20 10:00 03/21/20 09:20 Vitamin D3 - PO 400 unit DAILY ÁLVARO Administration Heparin Sodium (Porcine) 5,000 unit 03/14/20 21:15 03/19/20 14:04 Heparin - SQ 5,000 unit TID ÁLVARO Administration Tamsulosin HCl 0.4 mg 03/15/20 09:30 03/21/20 09:20 Flomax - PO 0.4 mg DAILY@0830 ÁLVARO Administration ASSESSMENT AND PLAN: 79 year old male with history of BPH, s/p inguinal hernia repair (Dr. Sheng Coker, 03/09/2020), brought to ED after being found by neighbor lying on floor - patient reports recent multiple falls, weakness, and some confusion. Head CT: neg acute, chronic Right cerebella infarct, punctate Left basal ganglia infarct C-spine CT: mod-large right paramedian C4-C5 disc herniation, partial imaging of Right pleural effusion CT C/A/P: marked enlarged prostate. Right perirenal soft tissue stranding. I nterval development of small amount of fluid accumulation along the Right anterior and posterior pararenal fasciae. Interval development of mild nonspecific soft tissue stranding adjacent to the inferior border of the cecum. Small amount of subcutaneous air is visualized along the Right anterior pelvis. Small hepatic cysts. S/P cholecystectomy. Dilated CBD 1.4cm diameter. Mod to large hiatal hernia Repeat CT A/P 03/20 - Improvement in R perirenal collection. Renal US: min-mild b/l hydronephrosis 1. Acute Metabolic Encephalopathy secondary to Uremia/Dehydration Mental Status improved, now AAO x 3, with improvement in renal function Imaging as above. Urine Cx - no growth. Head CT - shows chronic infarcts, MRI confirms old ischemic changes, no acute lesions 2. MAXWELL secondary to Dehydration + Obstructive Uropathy - resolved Bilateral Hydronephrosis on Renal US POD 3 s/p Cystoscopy/TURP 03/18 Continue Tamsulosin. Renal function improved CBI stopped, bloody urine, for TOV to proceed today as per Urology. If voiding ok, can be discharged 9/1 H/H stable - will monitor. 3. Acute Rhabdomyolysis sec to lying on floor - improved with IV hydration. 4. POD 12 s/p Inguinal Hernia Repair Surgery evaluated - no acute post-op issues. 5. C4/5 Disc Herniation with Radiculopathy - Neurosurgery recommended MRI C- Spine which shows DJD/Disc herniation, no cord compression - recommend conservative management. 6. Cerebrovascular Disease - chronic infarcts on CT Head/MRI Brain - started on Aspirin. To start Statin on discharge once CPK normalizes. If hematuria contin ues or if H/H trends down, will consider holding aspirin. 7. RML opacity on CT, likely atelectasis, no infective symptoms - recommend incentive spirometer and out-patient follow up with repeat CT and Pulmonary referral on discharge. 8. Hypophosphatemia, Hypomagnesemia - repleted. DVT Px - Heparin SQ held due to hematuria. SCDs.
--- NOTE | 2020-03-21 17:50 | PATH ---
Surgical Pathology Report Patient Name: DANDY JOHNSON Med. Rec. #: [id number] /Age/Gender: 1940 (Age: 79) / M Account: [id number] Location: [facility] MED/SURG Taken: 03/18/2020 Received: 03/18/2020 Reported: 03/21/2020 Physicians: Hamzah Mariee MD Specimen(s) Received PROSTATE CHIPS Clinical History Bladder lesion/BPH Final Diagnosis PROSTATE, TRANSURETHRAL RESECTION OF PROSTATE: BENIGN PROSTATIC TISSUE WITH FOCAL MILD CHRONIC INFLAMMATION, CYSTIC CHANGES, GLANDULAR AND STROMAL HYPERPLASIA. BENIGN UROTHELIAL MUCOSA PRESENT. Electronically Signed Nakia Webb M.D. Gross Description Received in formalin labeled "prostate chips" is a 19 g, 6 x 6 x 3 cm aggregate of hastings, firm to rubbery portions of tissue, consistent with prostate chips. Inserter portions are submitted in 8 cassettes. MLSZ/03/18/2020 [facility]/03/18/2020
[2020-03-22 07:37] LABS: HEMATOCRIT 32.8 % (35.4-49); HEMOGLOBIN 10.8 GM/dL (11.7-16.9); MCH 29.4 pg (25.7-33.7); MCHC 32.9 g/dl (32.0-35.9); MEAN CELL VOLUME 89.3 fl (80-96); MEAN PLT VOLUME 7.5 fl (7.5-11.1); PLATELET COUNT 351 K/MM3 (134-434); RBC 3.67 M/mm3 (4.00-5.60); RDW 14.4 % (11.9-15.9); WHITE BLOOD COUNT 8.4 K/mm3 (4.0-10.0)
[2020-03-22 08:14] LABS: ALBUMIN 2.6 g/dl (3.4-5.0); BILIRUBIN,TOTAL 0.3 mg/dL (0.2-1); BLOOD UREA NITROGEN 18.6 mg/dL (7-18); CREATININE 0.7 mg/dL (0.55-1.3); MAGNESIUM 1.9 mg/dL (1.8-2.4); PHOSPHOROUS 3.2 mg/dL (2.5-4.9); POTASSIUM 4.4 mmol/L (3.5-5.1); TOT PROT 6.1 g/dl (6.4-8.2)
[2020-03-22] MEDS ORDERED: PT OWN MED DRAWER 7, Y5N ONE (09:04)
[2020-03-22] MEDS: CHOLECALCIFEROL (VIT D3) 400 UNIT (10 MCG) TABLET PO SCH (09:23)
[2020-03-22] MEDS: TAMSULOSIN HCL 0.4 MG CAP PO SCH (09:23)
[2020-03-22] MEDS: ASPIRIN 81 MG CHEWABLE TABLETS PO SCH (09:23)
[2020-03-22] MEDS: ASCORBIC ACID 500 MG TABLET (FP) PO SCH (09:23)
--- NOTE | 2020-03-22 14:14 | PN ---
Teaching Attending Note Name of Resident: Harinder Al ATTENDING PHYSICIAN STATEMENT I saw and evaluated the patient. I reviewed the resident's note and discussed the case with the resident. I agree with the resident's findings and plan as documented. SUBJECTIVE: pt seen and examined OBJECTIVE: Last Vital Signs Temp Pulse Resp BP Pulse Ox 98.6 F 99 H 20 126/87 97 03/22/20 10:00 03/22/20 10:00 03/22/20 10:00 03/22/20 10:00 03/22/20 10:00 NAD, was sleepy Heart - S1, S2, RRR Lungs - clear to auscultation, mildly decreased air entry at bases. Abdomen - kaden-umbilical Surgical incision scar, mild tenderness, soft, some bruising. Bowel Sounds normal. chan has bloody urine Extremities - Mild edema, no calf tenderness. - bloody urine via chan CBCD WBC 8.4 K/mm3 (4.0-10.0) 03/22/20 06:55 RBC 3.67 M/mm3 (4.00-5.60) L 03/22/20 06:55 Hgb 10.8 GM/dL (11.7-16.9) L 03/22/20 06:55 Hct 32.8 % (35.4-49) L 03/22/20 06:55 MCV 89.3 fl (80-96) 03/22/20 06:55 MCHC 32.9 g/dl (32.0-35.9) 03/22/20 06:55 RDW 14.4 % (11.9-15.9) 03/22/20 06:55 Plt Count 351 K/MM3 (134-434) 03/22/20 06:55 MPV 7.5 fl (7.5-11.1) 03/22/20 06:55 CMP Sodium 139 mmol/L (136-145) 03/22/20 06:55 Potassium 4.4 mmol/L (3.5-5.1) 03/22/20 06:55 Chloride 107 mmol/L (98-107) 03/22/20 06:55 Carbon Dioxide 26 mmol/L (21-32) 03/22/20 06:55 Anion Gap 6 MMOL/L (8-16) L 03/22/20 06:55 BUN 18.6 mg/dL (7-18) H 03/22/20 06:55 Creatinine 0.7 mg/dL (0.55-1.3) 03/22/20 06:55 Calcium 8.0 mg/dL (8.5-10.1) L 03/22/20 06:55 Total Bilirubin 0.3 mg/dL (0.2-1) 03/22/20 06:55 AST 31 U/L (15-37) 03/22/20 06:55 ALT 40 U/L (13-61) 03/22/20 06:55 Alkaline Phosphatase 74 U/L (45-117) 03/22/20 06:55 Total Protein 6.1 g/dl (6.4-8.2) L 03/22/20 06:55 Albumin 2.6 g/dl (3.4-5.0) L 03/22/20 06:55 Active Medications Ascorbic Acid (Vitamin C -) 500 mg PO DAILY [facility] Last Admin: 03/22/20 09:23 Dose: 500 mg Documented by: Aspirin (Asa -) 81 mg PO DAILY [facility] Last Admin: 03/22/20 09:23 Dose: 81 mg Documented by: Cholecalciferol (Vitamin D3 -) 400 unit PO DAILY [facility] Last Admin: 03/22/20 09:23 Dose: 400 unit Documented by: Heparin Sodium (Porcine) (Heparin -) 5,000 unit SQ TID [facility] Last Admin: 03/19/20 14:04 Dose: 5,000 unit Documented by: Tamsulosin HCl (Flomax -) 0.4 mg PO DAILY@0830 [facility] Last Admin: 03/22/20 09:23 Dose: 0.4 mg Documented by: ASSESSMENT AND PLAN: 79 year old male with history of BPH, s/p inguinal hernia repair (Dr. Sheng Coker, 03/09/2020), brought to ED after being found by neighbor lying on floor - patient reports recent multiple falls, weakness, and some confusion. # Acute Metabolic Encephalopathy 2/2 Uremia/Dehydration s/p TURP obstructive uropathy Mental Status improved, now AAO x 3, with improvement in renal function CT C/A/P: marked enlarged prostate. Right perirenal soft tissue stranding. Interval development of small amount of fluid accumulation along the Right anterior and posterior pararenal fasciae. Interval development of mild nonspecific soft tissue stranding adjacent to the inferior border of the cecum. Small amount of subcutaneous air is visualized along the Right anterior pelvis. Small hepatic cysts. S/P cholecystectomy. Dilated CBD 1.4cm diameter. Mod to large hiatal hernia Urine Cx - no growth. Head CT - shows chronic infarcts, MRI confirms old ischemic changes, no acute lesions Repeat CT A/P 03/20 - Improvement in R perirenal collection. 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 SCDs
--- NOTE | 2020-03-22 14:28 | PN ---
Physical Exam: SUBJECTIVE: Patient seen and examined. Denies any abdominal pain, fever, chills, nausea, vomiting. OBJECTIVE: Vital Signs Period Temp Pulse Resp BP Sys/Frias Pulse Ox Last 24 Hr 97.8 F-98.6 F 75-99 20-20 117-129/67-87 94-97 GENERAL: The patient is awake, alert, and fully oriented, in no acute distress. HEAD: Normal with no signs of trauma. EYES: PERRL, extraocular movements intact, sclera anicteric, conjunctiva clear. No ptosis. ENT: Ears normal, nares patent, oropharynx clear without exudates, moist mucous membranes. NECK: Trachea midline, full range of motion, supple. LUNGS: Breath sounds equal, clear to auscultation bilaterally, no wheezes, no crackles, no accessory muscle use. HEART: Regular rate and rhythm, S1, S2 without murmur, rub or gallop. ABDOMEN: Soft, nontender, nondistended, normoactive bowel sounds, no guarding, no rebound, no hepatosplenomegaly, no masses. Periumbilical surgical incision scar, bruising. EXTREMITIES: 2+ pulses, warm, well-perfused, no edema. NEUROLOGICAL: Cranial nerves II through XII grossly intact. Normal speech, gait not observed. PSYCH: Normal mood, normal affect. SKIN: Warm, dry, normal turgor, no rashes or lesions noted : Bloody urine with Grady in place. Laboratory Results - last 24 hr 03/21/20 03/22/20 03/22/20 14:00 06:55 06:55 WBC 9.8 8.4 RBC 3.91 L 3.67 L Hgb 12.1 10.8 L Hct 35.6 32.8 L MCV 90.9 89.3 MCH 31.0 29.4 MCHC 34.0 32.9 RDW 14.6 14.4 Plt Count 406 D 351 MPV 7.7 7.5 Absolute Neuts (auto) 7.8 Neutrophils % 79.6 Lymphocytes % 10.7 D Monocytes % 6.4 Eosinophils % 2.8 Basophils % 0.5 Nucleated RBC % 0 Sodium 139 Potassium 4.4 Chloride 107 Carbon Dioxide 26 Anion Gap 6 L BUN 18.6 H Creatinine 0.7 Est GFR (CKD-EPI)AfAm 102.58 Est GFR (CKD-EPI)NonAf 88.50 Random Glucose 95 Calcium 8.0 L Phosphorus 3.2 Magnesium 1.9 Total Bilirubin 0.3 AST 31 ALT 40 Alkaline Phosphatase 74 Total Protein 6.1 L Albumin 2.6 L Active Medications Generic Name Dose Route Start Last Admin Trade Name Nancy PRN Reason Stop Dose Admin Ascorbic Acid 500 mg 03/16/20 10:00 03/22/20 09:23 Vitamin C - PO 500 mg DAILY ÁLVARO Administration Aspirin 81 mg 03/15/20 10:30 03/22/20 09:23 Asa - PO 81 mg DAILY ÁLVARO Administration Cholecalciferol 400 unit 03/16/20 10:00 03/22/20 09:23 Vitamin D3 - PO 400 unit DAILY ÁLVARO Administration Heparin Sodium (Porcine) 5,000 unit 03/14/20 21:15 03/19/20 14:04 Heparin - SQ 5,000 unit TID ÁLVARO Administration Tamsulosin HCl 0.4 mg 03/15/20 09:30 03/22/20 09:23 Flomax - PO 0.4 mg DAILY@0830 ÁLVARO Administration ASSESSMENT/PLAN: 79yo M with PMHx of BPH on Tamsulosin, POD6 from b/l indirect inguinal hernia repair ([facility] Robert Coker, 03/09/2020) presenting with multiple falls, weakness and found down in home by neighbour and brought to ED, admitted for MAXWELL 2/2 to urinary obstruction in setting of confusion. Grady was inserted which drained urine and pt mentation improved. Failed TOV 03/21. #Urinary obstruction 2/2 to BPH -Urology consulted; s/p cystoscopy TURP, CBI stopped on 03/20; failed TOV on 03/21 -C/w Flomax -Follow urology recs for TOV -Bloody urine, less than yesterday prior TOV #MAXWELL -Likely secondary to urinary obstruction, or rhabdomyolysis -Resolved; BUN/Cr 12.3/0.8 (BUN 83.9/Cr 6.7 on admission) -UCx negative, no UTI #Rhabdomyolysis -CK resolved (708 to 264) #Recent indirect inguinal hernia repair B/L -Ecchymosis overlying lower abdominal and pelvic area -POD 13 -no acute changes #Possible atelectasis vs COVID -COVID negative -Ground glass oapcities seen on CT -Likely atelectasis status post surgery #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 Cystoscopy showing BPH with obstruction. CBI stopped 03/20, TOV failed on 03/21. Follow uro recs. Visit type - Emergency Visit Emergency Visit: Yes ED Registration Date: 03/14/20 Care time: The patient presented to the Emergency Department on the above date and was hospitalized for further evaluation of their emergent condition. - New Patient This patient is new to me today: No - Critical Care Critical Care patient: No - Medication Review Med list reviewed for High Risk Meds patients 65 and older: Yes ATTENDING PHYSICIAN STATEMENT I saw and evaluated the patient. I reviewed the resident's note and discussed the case with the resident. I agree with the resident's findings and plan as documented. SUBJECTIVE: OBJECTIVE: ASSESSMENT AND PLAN:
--- NOTE | 2020-03-22 17:19 | PN ---
Progress Note, Physician History of Present Illness: Pt seen and examined at bedside. He is awake an alert. He did not tolerate voiding trial. - Current Medication List Current Medications: Active Medications Ascorbic Acid (Vitamin C -) 500 mg PO DAILY [facility] Last Admin: 03/22/20 09:23 Dose: 500 mg Documented by: Aspirin (Asa -) 81 mg PO DAILY [facility] Last Admin: 03/22/20 09:23 Dose: 81 mg Documented by: Cholecalciferol (Vitamin D3 -) 400 unit PO DAILY [facility] Last Admin: 03/22/20 09:23 Dose: 400 unit Documented by: Heparin Sodium (Porcine) (Heparin -) 5,000 unit SQ TID [facility] Last Admin: 03/19/20 14:04 Dose: 5,000 unit Documented by: Tamsulosin HCl (Flomax -) 0.4 mg PO DAILY@0830 [facility] Last Admin: 03/22/20 09:23 Dose: 0.4 mg Documented by: - Objective Vital Signs: Vital Signs Temperature 97.4 F L 03/22/20 14:00 Pulse Rate 88 03/22/20 14:00 Respiratory Rate 03/22/20 14:00 Blood Pressure 118/57 L 03/22/20 14:00 O2 Sat by Pulse Oximetry (%) 94 L 03/22/20 14:00 Constitutional: Yes: Calm Eyes: Yes: Conjunctiva Clear HENT: Yes: Atraumatic Cardiovascular: Yes: S1, S2 Respiratory: Yes: CTA Bilaterally Gastrointestinal: Yes: Soft Genitourinary: Yes: Chan Present, Hematuria Musculoskeletal: Yes: WNL Edema: No Neurological: Yes: Oriented Labs: CBC, BMP 03/22/20 06:55 03/22/20 06:55 INR, PTT INR 1.24 (0.83-1.09) H 03/14/20 14:00 Problem List - Problems (1) Acute renal failure Code(s): N17.9 - ACUTE KIDNEY FAILURE, UNSPECIFIED Qualifiers: Acute renal failure type: unspecified Qualified Code(s): N17.9 - Acute kidney failure, unspecified (2) Weakness Code(s): R53.1 - WEAKNESS Assessment/Plan Current Medications Generic Name Dose Route Start Last Admin Trade Name Freq PRN Reason Stop Dose Admin Ascorbic Acid 500 mg 03/16/20 10:00 03/22/20 09:23 Vitamin C - PO 500 mg DAILY ÁLVARO Administration Aspirin 81 mg 03/15/20 10:30 03/22/20 09:23 Asa - PO 81 mg DAILY ÁLVARO Administration Cholecalciferol 400 unit 03/16/20 10:00 03/22/20 09:23 Vitamin D3 - PO 400 unit DAILY ÁLVARO Administration Heparin Sodium (Porcine) 5,000 unit 03/14/20 21:15 03/19/20 14:04 Heparin - SQ 5,000 unit TID ÁLVARO Administration Tamsulosin HCl 0.4 mg 03/15/20 09:30 03/22/20 09:23 Flomax - PO 0.4 mg DAILY@0830 ÁLVARO Administration Impression 1. MAXWELL 2. s/p hernia repair 3. hydronephrosis 4. urinary obstruction 5. nsaid use Plan - cont chan - monitor lyts - repeat labs in am - monitor urine as he has hematuria - recall urology if hematuria does not clear up - maxwell from obstruction - will follow prn
[2020-03-22] MEDS: BETHANECHOL CHLORIDE 25 MG TABLET PO SCH (23:02)
--- NOTE | 2020-03-22 23:20 | PN ---
DATE OF VISIT: DATE OF DICTATION: 03/22/2020 The patient is an 79-year-old male who had history of urinary retention with bilateral hydroureteronephrosis. He underwent a TURP, TUVP on March 18, 2020. Had a benign and uneventful postoperative course. The Grady catheter was removed yesterday and a trial of voiding was ordered. Late in the day, the patient was unable to void and an 18-Bengali Grady has been reinserted. His urine is presently clear. His abdomen is soft. He is awake and alert. His temperature is 97.4, pulse 88, respirations 20. His white count is 8.4, BUN and creatinine are 18.6 over 0.7. IMPRESSION: At present is status post transurethral resection of prostate, failed first trial of voiding. Will add hydrochloride 25 mg p.o. t.i.d., will double on the Flomax to 0.8 mg daily, will discontinue Grady in 48 hours, and give a second trial of voiding. Will follow with you. BRIAN MOHR M.D. [id number]
[2020-03-23] MEDS: BETHANECHOL CHLORIDE 25 MG TABLET PO SCH ×3 (05:48→21:13)
[2020-03-23 08:23] LABS: HEMATOCRIT 32.4 % (35.4-49); HEMOGLOBIN 10.8 GM/dL (11.7-16.9); MCHC 33.4 g/dl (32.0-35.9); MEAN CELL VOLUME 89.8 fl (80-96); MEAN PLT VOLUME 7.4 fl (7.5-11.1); PLATELET COUNT 384 K/MM3 (134-434); RDW 14.4 % (11.9-15.9); WHITE BLOOD COUNT 5.4 K/mm3 (4.0-10.0)
[2020-03-23 08:51] LABS: ALBUMIN 2.8 g/dl (3.4-5.0); BILIRUBIN,TOTAL 0.4 mg/dL (0.2-1); BLOOD UREA NITROGEN 18.1 mg/dL (7-18); CALCIUM 8.5 mg/dL (8.5-10.1); CREATININE 0.8 mg/dL (0.55-1.3); MAGNESIUM 2.1 mg/dL (1.8-2.4); PHOSPHOROUS 3.3 mg/dL (2.5-4.9); POTASSIUM 4.5 mmol/L (3.5-5.1); TOT PROT 6.4 g/dl (6.4-8.2)
[2020-03-23] MEDS: TAMSULOSIN HCL 0.4 MG CAP PO SCH (09:05)
[2020-03-23] MEDS: ASCORBIC ACID 500 MG TABLET (FP) PO SCH (09:44)
[2020-03-23] MEDS: ASPIRIN 81 MG CHEWABLE TABLETS PO SCH (09:44)
[2020-03-23] MEDS: CHOLECALCIFEROL (VIT D3) 400 UNIT (10 MCG) TABLET PO SCH (09:44)
--- NOTE | 2020-03-23 12:09 | PN ---
Progress Note, Physician History of Present Illness: Pt seen and examined at bedside. He is awake and alert. - Current Medication List Current Medications: Active Medications Ascorbic Acid (Vitamin C -) 500 mg PO DAILY [facility] Last Admin: 03/23/20 09:44 Dose: 500 mg Documented by: Aspirin (Asa -) 81 mg PO DAILY [facility] Last Admin: 03/23/20 09:44 Dose: 81 mg Documented by: Bethanechol Chloride (Urecholine -) 25 mg PO TID [facility] Last Admin: 03/23/20 05:48 Dose: 25 mg Documented by: Cholecalciferol (Vitamin D3 -) 400 unit PO DAILY [facility] Last Admin: 03/23/20 09:44 Dose: 400 unit Documented by: Heparin Sodium (Porcine) (Heparin -) 5,000 unit SQ TID [facility] Last Admin: 03/19/20 14:04 Dose: 5,000 unit Documented by: Tamsulosin HCl (Flomax -) 0.8 mg PO DAILY@0830 [facility] Last Admin: 03/23/20 09:05 Dose: 0.8 mg Documented by: - Objective Vital Signs: Vital Signs Temperature 98 F 03/23/20 10:00 Pulse Rate 88 03/23/20 10:00 Respiratory Rate 20 03/23/20 10:00 Blood Pressure 121/78 03/23/20 10:00 O2 Sat by Pulse Oximetry (%) 97 03/23/20 10:00 Constitutional: Yes: Calm Eyes: Yes: Conjunctiva Clear HENT: Yes: Atraumatic Cardiovascular: Yes: S1, S2 Respiratory: Yes: CTA Bilaterally Gastrointestinal: Yes: Soft Genitourinary: Yes: Chan Present Musculoskeletal: Yes: WNL Edema: No Neurological: Yes: Oriented Psychiatric: Yes: Oriented Labs: CBC, BMP 03/23/20 07:35 03/23/20 07:35 INR, PTT INR 1.24 (0.83-1.09) H 03/14/20 14:00 Problem List - Problems (1) Acute renal failure Code(s): N17.9 - ACUTE KIDNEY FAILURE, UNSPECIFIED Qualifiers: Acute renal failure type: unspecified Qualified Code(s): N17.9 - Acute kidney failure, unspecified (2) Weakness Code(s): R53.1 - WEAKNESS Assessment/Plan Current Medications Generic Name Dose Route Start Last Admin Trade Name Freq PRN Reason Stop Dose Admin Ascorbic Acid 500 mg 03/16/20 10:00 03/23/20 09:44 Vitamin C - PO 500 mg DAILY ÁLVARO Administration Aspirin 81 mg 03/15/20 10:30 03/23/20 09:44 Asa - PO 81 mg DAILY ÁLVARO Administration Bethanechol Chloride 25 mg 03/22/20 23:00 03/23/20 05:48 Urecholine - PO 25 mg TID ÁLVARO Administration Cholecalciferol 400 unit 03/16/20 10:00 03/23/20 09:44 Vitamin D3 - PO 400 unit DAILY ÁLVARO Administration Heparin Sodium (Porcine) 5,000 unit 03/14/20 21:15 03/19/20 14:04 Heparin - SQ 5,000 unit TID ÁLVARO Administration Tamsulosin HCl 0.8 mg 03/23/20 08:30 03/23/20 09:05 Flomax - PO 0.8 mg DAILY@0830 ÁLVARO Administration Impression 1. MAXWELL 2. s/p hernia repair 3. hydronephrosis 4. urinary obstruction 5. nsaid use Plan - chan in place - hematuria improved - voiding trial tomorrow per urology - cont flomax - out of bed to chair and encourage ambulation during voiding trial - maxwell from obstruction - discussed with medical team
--- NOTE | 2020-03-23 13:19 | PN ---
Physical Exam: SUBJECTIVE: Patient seen and examined. Denies any abdominal pain, fever, chills, nausea, vomiting. OBJECTIVE: Vital Signs Period Temp Pulse Resp BP Sys/Frias Pulse Ox Last 24 Hr 97.4 F-99.3 F 73-93 20-20 117-125/55-89 92-97 GENERAL: The patient is awake, alert, and fully oriented, in no acute distress. HEAD: Normal with no signs of trauma. EYES: PERRL, extraocular movements intact, sclera anicteric, conjunctiva clear. No ptosis. ENT: Ears normal, nares patent, oropharynx clear without exudates, moist mucous membranes. NECK: Trachea midline, full range of motion, supple. LUNGS: Breath sounds equal, clear to auscultation bilaterally, no wheezes, no crackles, no accessory muscle use. HEART: Regular rate and rhythm, S1, S2 without murmur, rub or gallop. ABDOMEN: Soft, nontender, nondistended, normoactive bowel sounds, no guarding, no rebound, no hepatosplenomegaly, no masses. Periumbilical surgical incision scar, bruising. EXTREMITIES: 2+ pulses, warm, well-perfused, no edema. NEUROLOGICAL: Cranial nerves II through XII grossly intact. Normal speech, gait not observed. PSYCH: Normal mood, normal affect. SKIN: Warm, dry, normal turgor, no rashes or lesions noted : [place] tinged urine with Grady in place. Laboratory Results - last 24 hr 03/23/20 03/23/20 03/23/20 06:35 07:35 07:35 WBC 5.4 RBC 3.60 L Hgb 10.8 L Hct 32.4 L MCV 89.8 MCH 30.0 MCHC 33.4 RDW 14.4 Plt Count 384 MPV 7.4 L Sodium 137 Potassium 4.5 Chloride 104 Carbon Dioxide 28 Anion Gap 6 L BUN 18.1 H Creatinine 0.8 Est GFR (CKD-EPI)AfAm 97.10 Est GFR (CKD-EPI)NonAf 83.78 POC Glucometer 87 Random Glucose 92 Calcium 8.5 Phosphorus 3.3 Magnesium 2.1 Total Bilirubin 0.4 AST 19 ALT 33 Alkaline Phosphatase 80 Total Protein 6.4 Albumin 2.8 L Active Medications Generic Name Dose Route Start Last Admin Trade Name Freq PRN Reason Stop Dose Admin Ascorbic Acid 500 mg 03/16/20 10:00 03/23/20 09:44 Vitamin C - PO 500 mg DAILY ÁLVARO Administration Aspirin 81 mg 03/15/20 10:30 03/23/20 09:44 Asa - PO 81 mg DAILY ÁLVARO Administration Bethanechol Chloride 25 mg 03/22/20 23:00 03/23/20 05:48 Urecholine - PO 25 mg TID ÁLVARO Administration Cholecalciferol 400 unit 03/16/20 10:00 03/23/20 09:44 Vitamin D3 - PO 400 unit DAILY ÁLVARO Administration Heparin Sodium (Porcine) 5,000 unit 03/14/20 21:15 03/19/20 14:04 Heparin - SQ 5,000 unit TID ÁLVARO Administration Tamsulosin HCl 0.8 mg 03/23/20 08:30 03/23/20 09:05 Flomax - PO 0.8 mg DAILY@0830 ÁLVARO Administration ASSESSMENT/PLAN: 79yo M with PMHx of BPH on Tamsulosin, POD6 from b/l indirect inguinal hernia repair (Sheng Chinu, 03/09/2020) presenting with multiple falls, weakness and found down in home by neighbour and brought to ED, admitted for MAXWELL 2/2 to urinary obstruction in setting of confusion. Grady was inserted which drained urine and pt mentation improved. Failed TOV 03/21. #Urinary obstruction 2/2 to BPH -Urology consulted; s/p cystoscopy TURP, CBI stopped on 03/20; failed TOV on 03/21 -Urology increased Flomax to 0.8mg -Reattempt TOV 03/24 #MAXWELL -Likely secondary to urinary obstruction, or rhabdomyolysis -Resolved; BUN/Cr 12.3/0.8 (BUN 83.9/Cr 6.7 on admission) -UCx negative, no UTI #Rhabdomyolysis -CK resolved #Recent indirect inguinal hernia repair B/L -Ecchymosis overlying lower abdominal and pelvic area -POD 14 -no acute changes #Possible atelectasis vs COVID -COVID negative -Ground glass oapcities seen on CT -Likely atelectasis status post surgery #C4-5 disc herniation -Consulted neurosurg for evaluation -C spine CT and MRI; ok for medical management given age and mild sx Prophylaxis -Heparin held due to hematuria -SCDs FEN -Monitor electrolytes in AM -Renal diet Dispo: Admitted for urinary obstruction and altered state, found to have rha bdomyolysis. Cystoscopy showing BPH with obstruction. CBI stopped 03/20, TOV failed on 03/21. Retry on 03/24. Follow uro recs. Visit type - Emergency Visit Emergency Visit: Yes ED Registration Date: 03/14/20 Care time: The patient presented to the Emergency Department on the above date a nd was hospitalized for further evaluation of their emergent condition. - New Patient This patient is new to me today: No - Critical Care Critical Care patient: No - Medication Review Med list reviewed for High Risk Meds patients 65 and older: Yes ATTENDING PHYSICIAN STATEMENT I saw and evaluated the patient. I reviewed the resident's note and discussed the case with the resident. I agree with the resident's findings and plan as documented. SUBJECTIVE: OBJECTIVE: ASSESSMENT AND PLAN:
--- NOTE | 2020-03-23 13:54 | PN ---
Teaching Attending Note Name of Resident: Harinder Al ATTENDING PHYSICIAN STATEMENT I saw and evaluated the patient. I reviewed the resident's note and discussed the case with the resident. I agree with the resident's findings and plan as documented. SUBJECTIVE: pt seen and examined OBJECTIVE: Last Vital Signs Temp Pulse Resp BP Pulse Ox 98 F 88 20 121/78 97 03/23/20 10:00 03/23/20 10:00 03/23/20 10:00 03/23/20 10:00 03/23/20 10:00 NAD, was sleepy Heart - S1, S2, RRR Lungs - clear to auscultation, mildly decreased air entry at bases. Abdomen - kaden-umbilical Surgical incision scar, mild tenderness, soft, some bruising. Bowel Sounds normal. chan has bloody urine Extremities - Mild edema, no calf tenderness. - bloody urine via chan CBCD WBC 5.4 K/mm3 (4.0-10.0) 03/23/20 07:35 RBC 3.60 M/mm3 (4.00-5.60) L 03/23/20 07:35 Hgb 10.8 GM/dL (11.7-16.9) L 03/23/20 07:35 Hct 32.4 % (35.4-49) L 03/23/20 07:35 MCV 89.8 fl (80-96) 03/23/20 07:35 MCHC 33.4 g/dl (32.0-35.9) 03/23/20 07:35 RDW 14.4 % (11.9-15.9) 03/23/20 07:35 Plt Count 384 K/MM3 (134-434) 03/23/20 07:35 MPV 7.4 fl (7.5-11.1) L 03/23/20 07:35 CMP Sodium 137 mmol/L (136-145) 03/23/20 07:35 Potassium 4.5 mmol/L (3.5-5.1) 03/23/20 07:35 Chloride 104 mmol/L (98-107) 03/23/20 07:35 Carbon Dioxide 28 mmol/L (21-32) 03/23/20 07:35 Anion Gap 6 MMOL/L (8-16) L 03/23/20 07:35 BUN 18.1 mg/dL (7-18) H 03/23/20 07:35 Creatinine 0.8 mg/dL (0.55-1.3) 03/23/20 07:35 Calcium 8.5 mg/dL (8.5-10.1) 03/23/20 07:35 Total Bilirubin 0.4 mg/dL (0.2-1) 03/23/20 07:35 AST 19 U/L (15-37) 03/23/20 07:35 ALT 33 U/L (13-61) 03/23/20 07:35 Alkaline Phosphatase 80 U/L (45-117) 03/23/20 07:35 Total Protein 6.4 g/dl (6.4-8.2) 03/23/20 07:35 Albumin 2.8 g/dl (3.4-5.0) L 03/23/20 07:35 Active Medications Ascorbic Acid (Vitamin C -) 500 mg PO DAILY [facility] Last Admin: 03/23/20 09:44 Dose: 500 mg Documented by: Aspirin (Asa -) 81 mg PO DAILY [facility] Last Admin: 03/23/20 09:44 Dose: 81 mg Documented by: Bethanechol Chloride (Urecholine -) 25 mg PO TID [facility] Last Admin: 03/23/20 13:49 Dose: 25 mg Documented by: Cholecalciferol (Vitamin D3 -) 400 unit PO DAILY [facility] Last Admin: 03/23/20 09:44 Dose: 400 unit Documented by: Heparin Sodium (Porcine) (Heparin -) 5,000 unit SQ TID [facility] Last Admin: 03/19/20 14:04 Dose: 5,000 unit Documented by: Tamsulosin HCl (Flomax -) 0.8 mg PO DAILY@0830 [facility] Last Admin: 03/23/20 09:05 Dose: 0.8 mg Documented by: ASSESSMENT AND PLAN: 79 year old male with history of BPH, s/p inguinal hernia repair (Dr. Sheng Coker, 03/09/2020), brought to ED after being found by neighbor lying on floor - patient reports recent multiple falls, weakness, and some confusion. 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 SCDs
[2020-03-24] MEDS: BETHANECHOL CHLORIDE 25 MG TABLET PO SCH ×3 (05:52→22:41)
[2020-03-24 08:09] LABS: HEMATOCRIT 33.6 % (35.4-49); HEMOGLOBIN 11.1 GM/dL (11.7-16.9); MCH 29.6 pg (25.7-33.7); MCHC 32.9 g/dl (32.0-35.9); MEAN CELL VOLUME 89.9 fl (80-96); MEAN PLT VOLUME 7.2 fl (7.5-11.1); PLATELET COUNT 387 K/MM3 (134-434); RBC 3.74 M/mm3 (4.00-5.60); RDW 14.6 % (11.9-15.9); WHITE BLOOD COUNT 4.3 K/mm3 (4.0-10.0)
[2020-03-24 08:46] LABS: POTASSIUM 4.8 mmol/L (3.5-5.1)
[2020-03-24 09:04] LABS: BLOOD UREA NITROGEN 21.8 mg/dL (7-18); CALCIUM 8.5 mg/dL (8.5-10.1); CREATININE 0.8 mg/dL (0.55-1.3); PHOSPHOROUS 3.2 mg/dL (2.5-4.9)
[2020-03-24] MEDS: ASCORBIC ACID 500 MG TABLET (FP) PO SCH (09:48)
[2020-03-24] MEDS: TAMSULOSIN HCL 0.4 MG CAP PO SCH (09:48)
[2020-03-24] MEDS: ASPIRIN 81 MG CHEWABLE TABLETS PO SCH (09:48)
[2020-03-24] MEDS: CHOLECALCIFEROL (VIT D3) 400 UNIT (10 MCG) TABLET PO SCH (09:48)
--- NOTE | 2020-03-24 15:21 | PN ---
Physical Exam: SUBJECTIVE: Patient seen and examined. No acute complaints. OBJECTIVE: Vital Signs Period Temp Pulse Resp BP Sys/Frias Pulse Ox Last 24 Hr 98.1 F-98.7 F 72-91 18-20 115-131/67-75 96-100 GENERAL: The patient is awake, alert, and fully oriented, in no acute distress. HEAD: Normal with no signs of trauma. EYES: PERRL, extraocular movements intact, sclera anicteric, conjunctiva clear. No ptosis. ENT: Ears normal, nares patent, oropharynx clear without exudates, moist mucous membranes. NECK: Trachea midline, full range of motion, supple. LUNGS: Breath sounds equal, clear to auscultation bilaterally, no wheezes, no crackles, no accessory muscle use. HEART: Regular rate and rhythm, S1, S2 without murmur, rub or gallop. ABDOMEN: Soft, nontender, nondistended, normoactive bowel sounds, no guarding, no rebound, no hepatosplenomegaly, no masses. Periumbilical surgical incision scar, bruising. EXTREMITIES: 2+ pulses, warm, well-perfused, no edema. NEUROLOGICAL: Cranial nerves II through XII grossly intact. Normal speech, gait not observed. PSYCH: Normal mood, normal affect. SKIN: Warm, dry, normal turgor, no rashes or lesions noted : Clear urine with Grady in place. Laboratory Results - last 24 hr 03/24/20 03/24/20 07:50 07:50 WBC 4.3 RBC 3.74 L Hgb 11.1 L Hct 33.6 L MCV 89.9 MCH 29.6 MCHC 32.9 RDW 14.6 Plt Count 387 MPV 7.2 L Sodium 138 Potassium 4.8 Chloride 105 Carbon Dioxide 25 Anion Gap 8 BUN 21.8 H Creatinine 0.8 Est GFR (CKD-EPI)AfAm 97.10 Est GFR (CKD-EPI)NonAf 83.78 Random Glucose 93 Calcium 8.5 Phosphorus 3.2 Magnesium 2.0 Active Medications Generic Name Dose Route Start Last Admin Trade Name Freq PRN Reason Stop Dose Admin Ascorbic Acid 500 mg 03/16/20 10:00 03/24/20 09:48 Vitamin C - PO 500 mg DAILY ÁLVARO Administration Aspirin 81 mg 03/15/20 10:30 03/24/20 09:48 Asa - PO 81 mg DAILY ÁLVARO Administration Bethanechol Chloride 25 mg 03/22/20 23:00 03/24/20 05:52 Urecholine - PO 25 mg TID ÁLVARO Administration Cholecalciferol 400 unit 03/16/20 10:00 03/24/20 09:48 Vitamin D3 - PO 400 unit DAILY ÁLVARO Administration Heparin Sodium (Porcine) 5,000 unit 03/14/20 21:15 03/19/20 14:04 Heparin - SQ 5,000 unit TID ÁLVARO Administration Tamsulosin HCl 0.8 mg 03/23/20 08:30 03/24/20 09:48 Flomax - PO 0.8 mg DAILY@0830 ÁLVARO Administration ASSESSMENT/PLAN: 79yo M with PMHx of BPH on Tamsulosin, from b/l indirect inguinal hernia repair (S[facility] Coker, 03/09/2020) presenting with multiple falls, weakness and found down in home by neighbour and brought to ED, admitted for MAXWELL 2/2 to urinary obstruction in setting of confusion. Grady was inserted which drained urine and pt mentation improved. Failed TOV 03/21. #Urinary obstruction 2/2 to BPH -Urology consulted; s/p cystoscopy TURP, CBI stopped on 03/20; failed TOV on 03/21 -Urology increased Flomax to 0.8mg -Failed TOV on 03/24, per urology Grady placed again #MAXWELL -Likely secondary to urinary obstruction, or rhabdomyolysis -Resolved; BUN/Cr 12.3/0.8 (BUN 83.9/Cr 6.7 on admission) -UCx negative, no UTI #Rhabdomyolysis -CK resolved #Recent indirect inguinal hernia repair B/L -Ecchymosis overlying lower abdominal and pelvic area -POD 15 -no acute changes #Possible atelectasis vs COVID -COVID negative -Ground glass oapcities seen on CT -Likely atelectasis status post surgery #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 Cystoscopy showing BPH with obstruction. CBI stopped 03/20, TOV failed on 03/21 and 9/3. Visit type - Emergency Visit Emergency Visit: Yes ED Registration Date: 03/14/20 Care time: The patient presented to the Emergency Department on the above date and was hospitalized for further evaluation of their emergent condition. - New Patient This patient is new to me today: No - Critical Care Critical Care patient: No - Medication Review Med list reviewed for High Risk Meds patients 65 and older: Yes ATTENDING PHYSICIAN STATEMENT I saw and evaluated the patient. I reviewed the resident's note and discussed the case with the resident. I agree with the resident's findings and plan as documented. SUBJECTIVE: OBJECTIVE: ASSESSMENT AND PLAN:
--- NOTE | 2020-03-24 17:05 | PN ---
Progress Note, Physician History of Present Illness: Pt seen and examined. Grady removed however he has not voided. - Current Medication List Current Medications: Active Medications Ascorbic Acid (Vitamin C -) 500 mg PO DAILY [facility] Last Admin: 03/24/20 09:48 Dose: 500 mg Documented by: Aspirin (Asa -) 81 mg PO DAILY [facility] Last Admin: 03/24/20 09:48 Dose: 81 mg Documented by: Bethanechol Chloride (Urecholine -) 25 mg PO TID [facility] Last Admin: 03/24/20 15:51 Dose: 25 mg Documented by: Cholecalciferol (Vitamin D3 -) 400 unit PO DAILY [facility] Last Admin: 03/24/20 09:48 Dose: 400 unit Documented by: Heparin Sodium (Porcine) (Heparin -) 5,000 unit SQ TID [facility] Last Admin: 03/19/20 14:04 Dose: 5,000 unit Documented by: Tamsulosin HCl (Flomax -) 0.8 mg PO DAILY@0830 [facility] Last Admin: 03/24/20 09:48 Dose: 0.8 mg Documented by: - Objective Vital Signs: Vital Signs Temperature 99.0 F 03/24/20 15:00 Pulse Rate 90 03/24/20 15:00 Respiratory Rate 18 03/24/20 15:00 Blood Pressure 123/77 03/24/20 15:00 O2 Sat by Pulse Oximetry (%) 96 03/24/20 15:00 Constitutional: Yes: Calm Eyes: Yes: Conjunctiva Clear HENT: Yes: Atraumatic Neck: Yes: Supple Cardiovascular: Yes: S1, S2 Respiratory: Yes: CTA Bilaterally Gastrointestinal: Yes: Normal Bowel Sounds, Soft Genitourinary: Yes: WNL Musculoskeletal: Yes: WNL Edema: No Neurological: Yes: Oriented Psychiatric: Yes: Oriented Labs: CBC, BMP 03/24/20 07:50 03/24/20 07:50 INR, PTT INR 1.24 (0.83-1.09) H 03/14/20 14:00 Problem List - Problems (1) Acute renal failure Code(s): N17.9 - ACUTE KIDNEY FAILURE, UNSPECIFIED Qualifiers: Acute renal failure type: unspecified Qualified Code(s): N17.9 - Acute kidney failure, unspecified (2) Weakness Code(s): R53.1 - WEAKNESS Assessment/Plan Current Medications Generic Name Dose Route Start Last Admin Trade Name Nancy PRN Reason Stop Dose Admin Ascorbic Acid 500 mg 03/16/20 10:00 03/24/20 09:48 Vitamin C - PO 500 mg DAILY ÁLVARO Administration Aspirin 81 mg 03/15/20 10:30 03/24/20 09:48 Asa - PO 81 mg DAILY ÁLVARO Administration Bethanechol Chloride 25 mg 03/22/20 23:00 03/24/20 15:51 Urecholine - PO 25 mg TID [facility] Administration Cholecalciferol 400 unit 03/16/20 10:00 03/24/20 09:48 Vitamin D3 - PO 400 unit DAILY ÁLVARO Administration Heparin Sodium (Porcine) 5,000 unit 03/14/20 21:15 03/19/20 14:04 Heparin - SQ 5,000 unit TID [facility] Administration Tamsulosin HCl 0.8 mg 03/23/20 08:30 03/24/20 09:48 Flomax - PO 0.8 mg DAILY@0830 ÁLVARO Administration Impression 1. DAYLIN 2. s/p hernia repair 3. hydronephrosis 4. urinary obstruction 5. nsaid use Plan - pt on voiding trial - keep out of bed to chair - cont flomax - renal function had stabilized - daylin from obstruction
[2020-03-25] MEDS: BETHANECHOL CHLORIDE 25 MG TABLET PO SCH ×3 (05:47→21:50)
[2020-03-25 08:20] LABS: ALBUMIN 2.9 g/dl (3.4-5.0); BILIRUBIN,TOTAL 0.5 mg/dL (0.2-1); BLOOD UREA NITROGEN 19.6 mg/dL (7-18); CALCIUM 8.6 mg/dL (8.5-10.1); CREATININE 0.8 mg/dL (0.55-1.3); MAGNESIUM 2.2 mg/dL (1.8-2.4); PHOSPHOROUS 3.4 mg/dL (2.5-4.9); POTASSIUM 4.6 mmol/L (3.5-5.1); TOT PROT 6.5 g/dl (6.4-8.2)
[2020-03-25 09:26] LABS: BASO % 0.8 % (0-2.0); EOS % 3.1 % (0-4.5); HEMATOCRIT 32.9 % (35.4-49); HEMOGLOBIN 10.9 GM/dL (11.7-16.9); LYMPH % 15.8 % (8-40); MCH 29.7 pg (25.7-33.7); MCHC 33.2 g/dl (32.0-35.9); MEAN CELL VOLUME 89.4 fl (80-96); MEAN PLT VOLUME 7.7 fl (7.5-11.1); NEUT % 70.3 % (42.8-82.8); PLATELET COUNT 396 K/MM3 (134-434); RBC 3.68 M/mm3 (4.00-5.60); RDW 14.4 % (11.9-15.9)
[2020-03-25] MEDS ORDERED: PT OWN MED DRAWER 7, Y5N ONE (09:42)
[2020-03-25] MEDS: TAMSULOSIN HCL 0.4 MG CAP PO SCH (10:15)
[2020-03-25] MEDS: ASCORBIC ACID 500 MG TABLET (FP) PO SCH (10:15)
[2020-03-25] MEDS: CHOLECALCIFEROL (VIT D3) 400 UNIT (10 MCG) TABLET PO SCH (10:16)
[2020-03-25] MEDS: ASPIRIN 81 MG CHEWABLE TABLETS PO SCH (10:16)
--- NOTE | 2020-03-25 12:44 | PN ---
Physical Exam: SUBJECTIVE: Patient seen and examined. Denies any complaints. OBJECTIVE: Vital Signs Period Temp Pulse Resp BP Sys/Frias Pulse Ox Last 24 Hr 98.2 F-99.0 F 72-90 18-20 123-130/74-83 95-96 GENERAL: The patient is awake, alert, and fully oriented, in no acute distress. HEAD: Normal with no signs of trauma. EYES: PERRL, extraocular movements intact, sclera anicteric, conjunctiva clear. No ptosis. ENT: Ears normal, nares patent, oropharynx clear without exudates, moist mucous membranes. NECK: Trachea midline, full range of motion, supple. LUNGS: Breath sounds equal, clear to auscultation bilaterally, no wheezes, no crackles, no accessory muscle use. HEART: Regular rate and rhythm, S1, S2 without murmur, rub or gallop. ABDOMEN: Soft, nontender, nondistended, normoactive bowel sounds, no guarding, no rebound, no hepatosplenomegaly, no masses. Periumbilical surgical incision scar, bruising. EXTREMITIES: 2+ pulses, warm, well-perfused, no edema. NEUROLOGICAL: Cranial nerves II through XII grossly intact. Normal speech, gait not observed. PSYCH: Normal mood, normal affect. SKIN: Warm, dry, normal turgor, no rashes or lesions noted : Slightly pink urine with Grady in place. Laboratory Results - last 24 hr 03/25/20 03/25/20 06:40 06:40 WBC 5.0 RBC 3.68 L Hgb 10.9 L Hct 32.9 L MCV 89.4 MCH 29.7 MCHC 33.2 RDW 14.4 Plt Count 396 MPV 7.7 Absolute Neuts (auto) 3.5 Neutrophils % 70.3 Lymphocytes % 15.8 D Monocytes % 10.0 Eosinophils % 3.1 Basophils % 0.8 Nucleated RBC % 0 Sodium 137 Potassium 4.6 Chloride 104 Carbon Dioxide 26 Anion Gap 7 L BUN 19.6 H Creatinine 0.8 Est GFR (CKD-EPI)AfAm 97.10 Est GFR (CKD-EPI)NonAf 83.78 Random Glucose 92 Calcium 8.6 Phosphorus 3.4 Magnesium 2.2 Total Bilirubin 0.5 AST 20 ALT 26 Alkaline Phosphatase 84 Total Protein 6.5 Albumin 2.9 L Active Medications Generic Name Dose Route Start Last Admin Trade Name Freq PRN Reason Stop Dose Admin Ascorbic Acid 500 mg 03/16/20 10:00 03/25/20 10:15 Vitamin C - PO 500 mg DAILY ÁLVARO Administration Aspirin 81 mg 03/15/20 10:30 03/25/20 10:16 Asa - PO 81 mg DAILY ÁLVARO Administration Bethanechol Chloride 25 mg 03/22/20 23:00 03/25/20 05:47 Urecholine - PO 25 mg TID ÁLVARO Administration Cholecalciferol 400 unit 03/16/20 10:00 03/25/20 10:16 Vitamin D3 - PO 400 unit DAILY ÁLVARO Administration Heparin Sodium (Porcine) 5,000 unit 03/14/20 21:15 03/19/20 14:04 Heparin - SQ 5,000 unit TID ÁLVARO Administration Tamsulosin HCl 0.8 mg 03/23/20 08:30 03/25/20 10:15 Flomax - PO 0.8 mg DAILY@0830 ÁLVARO Administration ASSESSMENT/PLAN: 79yo M with PMHx of BPH on Tamsulosin, from b/l indirect inguinal hernia repair ([facility] C[facility], 03/09/2020) presenting with multiple falls, weakness and found down in home by neighbour and brought to ED, admitted for MAXWELL 2/2 to urinary obstruction in setting of confusion. Grady was inserted which drained urine and pt mentation improved. Failed TOV 03/21. #Urinary obstruction 2/2 to BPH -Urology consulted; s/p cystoscopy TURP, CBI stopped on 03/20; failed TOV on 03/21 -Urology increased Flomax to 0.8mg; and Bethanechol -Failed TOV on 03/24, per urology Grady placed again -Per urology suggestion, pt to go home with Grady and f/u outpatient next week for urodynamic studies #MAXWELL -Likely secondary to urinary obstruction, or rhabdomyolysis -Resolved; BUN/Cr 12.3/0.8 (BUN 83.9/Cr 6.7 on admission) -UCx negative, no UTI #Rhabdomyolysis -CK resolved #Recent indirect inguinal hernia repair B/L -Ecchymosis overlying lower abdominal and pelvic area -POD 16 -no acute changes #Possible atelectasis vs COVID -COVID negative -Ground glass oapcities seen on CT -Likely atelectasis status post surgery #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 Cystoscopy showing BPH with obstruction. CBI stopped 03/20, TOV failed on 03/21 and 03/24. Pt to go home with Grady and follow up next week with urologist for urodynamic studies. Visit type - Emergency Visit Emergency Visit: Yes ED Registration Date: 03/14/20 Care time: The patient presented to the Emergency Department on the above date and was hospitalized for further evaluation of their emergent condition. - New Patient This patient is new to me today: No - Critical Care Critical Care patient: No - Medication Review Med list reviewed for High Risk Meds patients 65 and older: Yes ATTENDING PHYSICIAN STATEMENT I saw and evaluated the patient. I reviewed the resident's note and discussed the case with the resident. I agree with the resident's findings and plan as documented. SUBJECTIVE: OBJECTIVE: ASSESSMENT AND PLAN:
--- NOTE | 2020-03-25 14:31 | PN ---
Teaching Attending Note Name of Resident: Harinder Al ATTENDING PHYSICIAN STATEMENT I saw and evaluated the patient. I reviewed the resident's note and discussed the case with the resident. I agree with the resident's findings and plan as documented. SUBJECTIVE: pt seen and examined OBJECTIVE: Last Vital Signs Temp Pulse Resp BP Pulse Ox 98.7 F 72 20 126/76 96 03/25/20 06:00 03/25/20 06:00 03/25/20 06:00 03/25/20 06:00 03/25/20 08:30 NAD, AAOx3 NC/AT, PERRLA Heart - S1, S2, RRR Lungs - clear to auscultation, mildly decreased air entry at bases. Abdomen - kaden-umbilical Surgical incision scar, non tender, soft, BS+. chan has clear Extremities - Mild edema, no calf tenderness. - bloody urine via chan CBCD WBC 5.0 K/mm3 (4.0-10.0) 03/25/20 06:40 RBC 3.68 M/mm3 (4.00-5.60) L 03/25/20 06:40 Hgb 10.9 GM/dL (11.7-16.9) L 03/25/20 06:40 Hct 32.9 % (35.4-49) L 03/25/20 06:40 MCV 89.4 fl (80-96) 03/25/20 06:40 MCHC 33.2 g/dl (32.0-35.9) 03/25/20 06:40 RDW 14.4 % (11.9-15.9) 03/25/20 06:40 Plt Count 396 K/MM3 (134-434) 03/25/20 06:40 MPV 7.7 fl (7.5-11.1) 03/25/20 06:40 CMP Sodium 137 mmol/L (136-145) 03/25/20 06:40 Potassium 4.6 mmol/L (3.5-5.1) 03/25/20 06:40 Chloride 104 mmol/L (98-107) 03/25/20 06:40 Carbon Dioxide 26 mmol/L (21-32) 03/25/20 06:40 Anion Gap 7 MMOL/L (8-16) L 03/25/20 06:40 BUN 19.6 mg/dL (7-18) H 03/25/20 06:40 Creatinine 0.8 mg/dL (0.55-1.3) 03/25/20 06:40 Calcium 8.6 mg/dL (8.5-10.1) 03/25/20 06:40 Total Bilirubin 0.5 mg/dL (0.2-1) 03/25/20 06:40 AST 20 U/L (15-37) 03/25/20 06:40 ALT 26 U/L (13-61) 03/25/20 06:40 Alkaline Phosphatase 84 U/L (45-117) 03/25/20 06:40 Total Protein 6.5 g/dl (6.4-8.2) 03/25/20 06:40 Albumin 2.9 g/dl (3.4-5.0) L 03/25/20 06:40 Active Medications Ascorbic Acid (Vitamin C -) 500 mg PO DAILY [facility] Last Admin: 03/25/20 10:15 Dose: 500 mg Documented by: Aspirin (Asa -) 81 mg PO DAILY [facility] Last Admin: 03/25/20 10:16 Dose: 81 mg Documented by: Bethanechol Chloride (Urecholine -) 25 mg PO TID [facility] Last Admin: 03/25/20 13:14 Dose: 25 mg Documented by: Cholecalciferol (Vitamin D3 -) 400 unit PO DAILY [facility] Last Admin: 03/25/20 10:16 Dose: 400 unit Documented by: Heparin Sodium (Porcine) (Heparin -) 5,000 unit SQ TID [facility] Last Admin: 03/19/20 14:04 Dose: 5,000 unit Documented by: Tamsulosin HCl (Flomax -) 0.8 mg PO DAILY@0830 [facility] Last Admin: 03/25/20 10:15 Dose: 0.8 mg Documented by: ASSESSMENT AND PLAN: 79 year old male with history of BPH, s/p inguinal hernia repair (Dr. Sheng Coker, 03/09/2020), brought to ED after being found by neighbor lying on floor - patient reports recent multiple falls, weakness, and some confusion. 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 SCDs
--- NOTE | 2020-03-25 14:53 | PN ---
Progress Note, Physician History of Present Illness: Pt seen and examined at bedside. He did not tolerate the voiding trial. - Current Medication List Current Medications: Active Medications Ascorbic Acid (Vitamin C -) 500 mg PO DAILY [facility] Last Admin: 03/25/20 10:15 Dose: 500 mg Documented by: Aspirin (Asa -) 81 mg PO DAILY [facility] Last Admin: 03/25/20 10:16 Dose: 81 mg Documented by: Bethanechol Chloride (Urecholine -) 25 mg PO TID [facility] Last Admin: 03/25/20 13:14 Dose: 25 mg Documented by: Cholecalciferol (Vitamin D3 -) 400 unit PO DAILY [facility] Last Admin: 03/25/20 10:16 Dose: 400 unit Documented by: Heparin Sodium (Porcine) (Heparin -) 5,000 unit SQ TID [facility] Last Admin: 03/19/20 14:04 Dose: 5,000 unit Documented by: Tamsulosin HCl (Flomax -) 0.8 mg PO DAILY@0830 [facility] Last Admin: 03/25/20 10:15 Dose: 0.8 mg Documented by: - Objective Vital Signs: Vital Signs Temperature 98.4 F 03/25/20 13:51 Pulse Rate 88 03/25/20 13:51 Respiratory Rate 20 03/25/20 13:51 Blood Pressure 121/87 03/25/20 13:51 O2 Sat by Pulse Oximetry (%) 97 03/25/20 13:51 Constitutional: Yes: Calm Eyes: Yes: Conjunctiva Clear HENT: Yes: Atraumatic Neck: Yes: Supple Cardiovascular: Yes: S1, S2 Respiratory: Yes: CTA Bilaterally Gastrointestinal: Yes: Normal Bowel Sounds, Soft Genitourinary: Yes: Grady Present Musculoskeletal: Yes: WNL Edema: No Neurological: Yes: Oriented Labs: CBC, BMP 03/25/20 06:40 03/25/20 06:40 INR, PTT INR 1.24 (0.83-1.09) H 03/14/20 14:00 Problem List - Problems (1) Acute renal failure Code(s): N17.9 - ACUTE KIDNEY FAILURE, UNSPECIFIED Qualifiers: Acute renal failure type: unspecified Qualified Code(s): N17.9 - Acute kidney failure, unspecified (2) Weakness Code(s): R53.1 - WEAKNESS Assessment/Plan Current Medications Generic Name Dose Route Start Last Admin Trade Name Freq PRN Reason Stop Dose Admin Ascorbic Acid 500 mg 03/16/20 10:00 03/25/20 10:15 Vitamin C - PO 500 mg DAILY ÁLVARO Administration Aspirin 81 mg 03/15/20 10:30 03/25/20 10:16 Asa - PO 81 mg DAILY ÁLVARO Administration Bethanechol Chloride 25 mg 03/22/20 23:00 03/25/20 13:14 Urecholine - PO 25 mg TID ÁLVARO Administration Cholecalciferol 400 unit 03/16/20 10:00 03/25/20 10:16 Vitamin D3 - PO 400 unit DAILY ÁLVARO Administration Heparin Sodium (Porcine) 5,000 unit 03/14/20 21:15 03/19/20 14:04 Heparin - SQ 5,000 unit TID ÁLVARO Administration Tamsulosin HCl 0.8 mg 03/23/20 08:30 03/25/20 10:15 Flomax - PO 0.8 mg DAILY@0830 ÁLVARO Administration Impression 1. MAXWELL 2. s/p hernia repair 3. hydronephrosis 4. urinary obstruction 5. nsaid use Plan - renal function stable - pt did not tolerate voiding trial - monitor lytes - urology follow up - will follow prn
--- NOTE | 2020-03-25 20:54 | PN ---
DATE OF VISIT: DATE OF DICTATION: 03/25/2020 POSTOPERATIVE NOTE Patient is an 79-year-old male who came in with obstructive azotemia, underwent a TURP on March 20, 2020. A Grady catheter was removed this morning for trial of voiding, but patient was unable to void, therefore the Grady catheter was reinserted. The patient has been placed on Flomax 0.8 mg daily as well as urecholine 25 mg p.o. t.i.d. His white count is 5000, hemoglobin and hematocrit is 10.9 over 32.9. His BUN and creatinine are 19.6 over 0.8. PLAN: Post TURP retention, will likely need several more days of Grady drainage. Will encourage ambulation and p.o. fluids. Will give another trial of voiding in 48 hours. BRIAN MOHR M.D. [id number]
[2020-03-25] MEDS: HEPARIN NA (PORCINE) 5,000 UNITS/ML 1ML VIAL SQ SCH (21:51)
[2020-03-26] MEDS: HEPARIN NA (PORCINE) 5,000 UNITS/ML 1ML VIAL SQ SCH ×3 (05:05→22:14)
[2020-03-26] MEDS: BETHANECHOL CHLORIDE 25 MG TABLET PO SCH ×3 (05:42→22:14)
[2020-03-26] MEDS: ASPIRIN 81 MG CHEWABLE TABLETS PO SCH (09:25)
[2020-03-26] MEDS: CHOLECALCIFEROL (VIT D3) 400 UNIT (10 MCG) TABLET PO SCH (09:26)
[2020-03-26] MEDS: ASCORBIC ACID 500 MG TABLET (FP) PO SCH (09:26)
[2020-03-26] MEDS: TAMSULOSIN HCL 0.4 MG CAP PO SCH (09:27)
--- NOTE | 2020-03-26 13:41 | DS ---
Physical Exam: SUBJECTIVE: Patient seen and examined OBJECTIVE: Vital Signs Period Temp Pulse Resp BP Sys/Frias Pulse Ox Last 24 Hr 98.4 F-98.6 F 71-88 20-20 121-128/68-87 94-97 PHYSICAL EXAM NAD, AAOx3 NC/AT, PERRLA Heart - S1, S2, RRR Lungs - clear to auscultation, mildly decreased air entry at bases. Abdomen - kaden-umbilical Surgical incision scar, non tender, soft, BS+. chan has clear Extremities - Mild edema, no calf tenderness. - clear urine via chan LABS Laboratory Last Values WBC 5.0 K/mm3 (4.0-10.0) 03/25/20 06:40 RBC 3.68 M/mm3 (4.00-5.60) L 03/25/20 06:40 Hgb 10.9 GM/dL (11.7-16.9) L 03/25/20 06:40 Hct 32.9 % (35.4-49) L 03/25/20 06:40 MCV 89.4 fl (80-96) 03/25/20 06:40 MCH 29.7 pg (25.7-33.7) 03/25/20 06:40 MCHC 33.2 g/dl (32.0-35.9) 03/25/20 06:40 RDW 14.4 % (11.9-15.9) 03/25/20 06:40 Plt Count 396 K/MM3 (134-434) 03/25/20 06:40 MPV 7.7 fl (7.5-11.1) 03/25/20 06:40 Absolute Neuts (auto) 3.5 K/mm3 (1.5-8.0) 03/25/20 06:40 Neutrophils % 70.3 % (42.8-82.8) 03/25/20 06:40 Lymphocytes % 15.8 % (8-40) D 03/25/20 06:40 Monocytes % 10.0 % (3.8-10.2) 03/25/20 06:40 Eosinophils % 3.1 % (0-4.5) 03/25/20 06:40 Basophils % 0.8 % (0-2.0) 03/25/20 06:40 Nucleated RBC % 0 % (0-0) 03/25/20 06:40 PT with INR 14.70 SEC (9.7-13.0) H 03/14/20 14:00 INR 1.24 (0.83-1.09) H 03/14/20 14:00 Sodium 137 mmol/L (136-145) 03/25/20 06:40 Potassium 4.6 mmol/L (3.5-5.1) 03/25/20 06:40 Chloride 104 mmol/L (98-107) 03/25/20 06:40 Carbon Dioxide 26 mmol/L (21-32) 03/25/20 06:40 Anion Gap 7 MMOL/L (8-16) L 03/25/20 06:40 BUN 19.6 mg/dL (7-18) H 03/25/20 06:40 Creatinine 0.8 mg/dL (0.55-1.3) 03/25/20 06:40 Est GFR (CKD-EPI)AfAm 97.10 03/25/20 06:40 Est GFR (CKD-EPI)NonAf 83.78 03/25/20 06:40 POC Glucometer 87 UNITS (80-120) 03/23/20 06:35 Random Glucose 92 mg/dL (74-106) 03/25/20 06:40 Lactic Acid 1.2 mmol/L (0.4-2.0) 03/14/20 18:20 Calcium 8.6 mg/dL (8.5-10.1) 03/25/20 06:40 Phosphorus 3.4 mg/dL (2.5-4.9) 03/25/20 06:40 Magnesium 2.2 mg/dL (1.8-2.4) 03/25/20 06:40 Total Bilirubin 0.5 mg/dL (0.2-1) 03/25/20 06:40 AST 20 U/L (15-37) 03/25/20 06:40 ALT 26 U/L (13-61) 03/25/20 06:40 Alkaline Phosphatase 84 U/L (45-117) 03/25/20 06:40 Creatine Kinase 103 U/L (26-308) 03/19/20 07:21 Creatine Kinase Index 0.9 % (0.0-5.0) 03/18/20 07:05 CK-MB (CK-2) 2.4 ng/mL (0.5-3.6) 03/18/20 07:05 Troponin I 0.03 ng/ml (0.00-0.05) 03/14/20 14:00 Total Protein 6.5 g/dl (6.4-8.2) 03/25/20 06:40 Albumin 2.9 g/dl (3.4-5.0) L 03/25/20 06:40 Urine Color Yellow 03/14/20 15:30 Urine Appearance Clear 03/14/20 15:30 Urine pH 5.0 (5.0-8.0) 03/14/20 15:30 Ur Specific Martin 1.012 (1.010-1.035) 03/14/20 15:30 Urine Protein Negative (NEGATIVE) 03/14/20 15:30 Urine Glucose (UA) Trace (NEGATIVE) 03/14/20 15:30 Urine Ketones Negative (NEGATIVE) 03/14/20 15:30 Urine Blood 1+ (NEGATIVE) H 03/14/20 15:30 Urine Nitrite Negative (NEGATIVE) 03/14/20 15:30 Urine Bilirubin Negative (NEGATIVE) 03/14/20 15:30 Urine Urobilinogen 0.2 mg/dL (0.2-1.0) 03/14/20 15:30 Ur Leukocyte Esterase Negative (NEGATIVE) 03/14/20 15:30 Urine WBC (Auto) 3 /uL (0-25.8) 03/14/20 15:30 Urine RBC (Auto) 11 /uL (0-23.9) 03/14/20 15:30 Urine Casts (Auto) 0 /uL (0-3.1) 03/14/20 15:30 U Epithel Cells (Auto) 2 /uL (0-25.1) 03/14/20 15:30 Urine Bacteria (Auto) 1 /uL (0-1359) 03/14/20 15:30 COVID-19 (JEAN) Not detected (Not Detected) 03/14/20 18:20 Active Medications Ascorbic Acid (Vitamin C -) 500 mg PO DAILY [facility] Last Admin: 03/26/20 09:26 Dose: 500 mg Documented by: Aspirin (Asa -) 81 mg PO DAILY [facility] Last Admin: 03/26/20 09:25 Dose: 81 mg Documented by: Bethanechol Chloride (Urecholine -) 25 mg PO TID [facility] Last Admin: 03/26/20 05:42 Dose: 25 mg Documented by: Cholecalciferol (Vitamin D3 -) 400 unit PO DAILY [facility] Last Admin: 03/26/20 09:26 Dose: 400 unit Documented by: Heparin Sodium (Porcine) (Heparin -) 5,000 unit SQ TID [facility] Last Admin: 03/26/20 05:05 Dose: Not Given Documented by: Tamsulosin HCl (Flomax -) 0.8 mg PO DAILY@0830 [facility] Last Admin: 03/26/20 09:27 Dose: 0.8 mg Documented by: HOSPITAL COURSE: 79 year old male with history of BPH, s/p inguinal hernia repair (Dr. Sheng Coker, 03/09/2020), brought to ED after being found by neighbor lying on floor - patient reports recent multiple falls, weakness, and some confusion. CT C/A/P: marked enlarged prostate. Right perirenal soft tissue stranding. Interval development of small amount of fluid accumulation along the Right anterior and posterior pararenal fasciae. Interval development of mild nonspecific soft tissue stranding adjacent to the inferior border of the cecum. Small amount of subcutaneous air is visualized along the Right anterior pelvis. Small hepatic cysts. S/P cholecystectomy. Dilated CBD 1.4cm diameter. Pt was treated for obstructive uropathy, and Bilateral hydronephrosis. cystoscopy with TURP on 03/18 was done, chan cath was placed. pt mental status improved and returned to baseline, MAXWELL resolved, rhabdomyolysis resolved. CT head was negative for acute pathology. Pt failed trial of urination and was placed on tamsolusin and bethanecol. Pt was cleared for discharge by urologist for outpaitent follow up. Date of Admission:03/14/20 Date of Discharge: 03/26/20 Minutes to complete discharge: 35 Discharge Summary Problems reviewed: Yes Reason For Visit: ACUTE RENAL FAILURE Current Active Problems Acute renal failure (Acute) Falls (Acute) Weakness (Acute) Condition: Guarded - Instructions Diet, Activity, Other Instructions: You came to the hospital for having a fall. You had a CAT scan which did not show any brain bleeding. You were unable to urinate. We put in a Chan catheter (tube to draine urine) and you were then able to urinate. You had a cystoscopy, which is a procedure to look inside your bladder, which continued to show an enlarged prostate. Please START Flomax 0.8 mg once a day. Please START Bethanechol 25mg three times a day. Please START Aspirin 81mg once a day. Please continue to take all other medications as prescribed. Please follow up with your apiculture teacher, Dr. Kellogg, in 1 week. Please follow up with your urologist, Dr. Mendoza, in 1 week. Please follow up with your surgeon, Dr. Pappas, in 1 week. Please follow up with your neurosurgeon, Dr. Coker, in 1 week. Please follow up with your primary care physician in 1 week. If you have new, worsening, or concerning symptoms please call 911 or return to the ED. Referrals: Marcie Cha [Other Staff,non-medical] - Sheng Coker MD [Staff Physician] - Key Kellogg MD [Staff Physician] - Linda Mendoza MD [Staff Physician] - - Home Medications Comprehensive Discharge Medication List: Ambulatory Orders Aspirin [ASA -] 81 mg PO DAILY #30 tab.chew 03/24/20 Bethanechol Chloride [Bethanechol Chloride -] 25 mg PO TID #45 tablet 03/24/20 Tamsulosin HCl [Flomax -] 0.8 mg PO DAILY@0830 #30 cap.er.24h 03/24/20 This patient is new to me today: No Emergency Visit: Yes ED Registration Date: 03/14/20 Care time: The patient presented to the Emergency Department on the above date and was hospitalized for further evaluation of their emergent condition. Critical Care patient: No - Discharge Referral Referred to [facility] Med P.C.: No
[2020-03-27] MEDS: HEPARIN NA (PORCINE) 5,000 UNITS/ML 1ML VIAL SQ SCH ×2 (06:17→13:17)
[2020-03-27] MEDS: BETHANECHOL CHLORIDE 25 MG TABLET PO SCH ×2 (06:18→13:17)
[2020-03-27] MEDS: TAMSULOSIN HCL 0.4 MG CAP PO SCH (08:38)
[2020-03-27] MEDS ORDERED: PT OWN MED DRAWER 7, Y5N ONE (09:13)
[2020-03-27] MEDS: ASPIRIN 81 MG CHEWABLE TABLETS PO SCH (09:16)
[2020-03-27] MEDS: CHOLECALCIFEROL (VIT D3) 400 UNIT (10 MCG) TABLET PO SCH (09:16)
[2020-03-27] MEDS: ASCORBIC ACID 500 MG TABLET (FP) PO SCH (09:16)
--- NOTE | 2020-03-27 14:03 | PN ---
Progress Note (short form) - Note Progress Note: Pt seen and examined at bedside. pt has no acute complaints. CTA B/L +S1S2 no LE edema Pt noted to have some hematuria. urology contacted . pt stable for discharge. pt should f/u with Dr. Mendoza in 1 week
--- NOTE | 2020-03-27 14:52 | PN ---
Teaching Attending Note Name of Resident: Sarah Beth Melton ATTENDING PHYSICIAN STATEMENT I saw and evaluated the patient. I reviewed the resident's note and discussed the case with the resident. I agree with the resident's findings and plan as documented. SUBJECTIVE: pt seen and examined OBJECTIVE: Last Vital Signs Temp Pulse Resp BP Pulse Ox 97.9 F 85 20 120/75 96 03/27/20 08:40 03/27/20 08:40 03/27/20 08:40 03/27/20 08:40 03/27/20 08:40 NAD, AAOx3 NC/AT, PERRLA Heart - S1, S2, RRR Lungs - clear to auscultation, mildly decreased air entry at bases. Abdomen - kaden-umbilical Surgical incision scar, non tender, soft, BS+. chan has clear Extremities - Mild edema, no calf tenderness. - bloody urine via chan CBCD WBC 5.0 K/mm3 (4.0-10.0) 03/25/20 06:40 RBC 3.68 M/mm3 (4.00-5.60) L 03/25/20 06:40 Hgb 10.9 GM/dL (11.7-16.9) L 03/25/20 06:40 Hct 32.9 % (35.4-49) L 03/25/20 06:40 MCV 89.4 fl (80-96) 03/25/20 06:40 MCHC 33.2 g/dl (32.0-35.9) 03/25/20 06:40 RDW 14.4 % (11.9-15.9) 03/25/20 06:40 Plt Count 396 K/MM3 (134-434) 03/25/20 06:40 MPV 7.7 fl (7.5-11.1) 03/25/20 06:40 CMP Sodium 137 mmol/L (136-145) 03/25/20 06:40 Potassium 4.6 mmol/L (3.5-5.1) 03/25/20 06:40 Chloride 104 mmol/L (98-107) 03/25/20 06:40 Carbon Dioxide 26 mmol/L (21-32) 03/25/20 06:40 Anion Gap 7 MMOL/L (8-16) L 03/25/20 06:40 BUN 19.6 mg/dL (7-18) H 03/25/20 06:40 Creatinine 0.8 mg/dL (0.55-1.3) 03/25/20 06:40 Calcium 8.6 mg/dL (8.5-10.1) 03/25/20 06:40 Total Bilirubin 0.5 mg/dL (0.2-1) 03/25/20 06:40 AST 20 U/L (15-37) 03/25/20 06:40 ALT 26 U/L (13-61) 03/25/20 06:40 Alkaline Phosphatase 84 U/L (45-117) 03/25/20 06:40 Total Protein 6.5 g/dl (6.4-8.2) 03/25/20 06:40 Albumin 2.9 g/dl (3.4-5.0) L 03/25/20 06:40 Active Medications Ascorbic Acid (Vitamin C -) 500 mg PO DAILY [facility] Last Admin: 03/27/20 09:16 Dose: 500 mg Documented by: Aspirin (Asa -) 81 mg PO DAILY [facility] Last Admin: 03/27/20 09:16 Dose: 81 mg Documented by: Bethanechol Chloride (Urecholine -) 25 mg PO TID [facility] Last Admin: 03/27/20 13:17 Dose: 25 mg Documented by: Cholecalciferol (Vitamin D3 -) 400 unit PO DAILY [facility] Last Admin: 03/27/20 09:16 Dose: 400 unit Documented by: Heparin Sodium (Porcine) (Heparin -) 5,000 unit SQ TID [facility] Last Admin: 03/27/20 13:17 Dose: 5,000 unit Documented by: Tamsulosin HCl (Flomax -) 0.8 mg PO DAILY@0830 [facility] Last Admin: 03/27/20 08:38 Dose: 0.8 mg Documented by: ASSESSMENT AND PLAN: 79 year old male with history of BPH, s/p inguinal hernia repair (Dr. Sheng Coker, 03/09/2020), brought to ED after being found by neighbor lying on floor - patient reports recent multiple falls, weakness, and some confusion. 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 SCDs
[2020-03-27 15:01] VITALS: BP 119/65; PULSE 95; TEMP 98.3
== END 2020-03-27 15:22 | disposition home or self-care (01) | DRG 665 ==
LOC: JER 13:11 → JERBED 16:09 → J8W 03-15 01:13
PROVIDERS: ADMIT Internal Medicine; ATTEND Student in an Organized Health Care Education/Training Program
PROC: 0VT08ZZ Resection of Prostate, Via Natural or Artificial Opening Endoscopic (ICD-10-PCS; principal; 2020-03-18 10:00)
PROC: 0TJB8ZZ Inspection of Bladder, Via Natural or Artificial Opening Endoscopic (ICD-10-PCS; 2020-03-18 10:00)
DX: N17.9 Acute kidney failure, unspecified (principal); G93.41 Metabolic encephalopathy; J98.11 Atelectasis; K76.89 Other specified diseases of liver; N13.30 Unspecified hydronephrosis; N40.0 Benign prostatic hyperplasia without lower urinary tract symptoms; T79.6XXA Traumatic ischemia of muscle, initial encounter; N13.9 Obstructive and reflux uropathy, unspecified; E86.0 Dehydration; N18.9 Chronic kidney disease, unspecified; R53.1 Weakness; E83.39 Other disorders of phosphorus metabolism; E83.42 Hypomagnesemia; R31.9 Hematuria, unspecified; M50.20 Other cervical disc displacement, unspecified cervical region; W19.XXXA Unspecified fall, initial encounter; Y93.9 Activity, unspecified; Y92.89 Other specified places as the place of occurrence of the external cause; Y99.9 Unspecified external cause status
CPT/HCPCS: 36415; 70450-TC; 70551-TC; 71250-TC; 72125-TC; 72141-TC; 74176-TC; 76775-TC; 80048; 80053; 81003; 82550; 82553; 82962; 83605; 83735; 84100; 84484; 85025; 85027; 85610; 87040; 87086; 88305-TC; 93005; 93010; 94760; 97116-GP; 97161-GP; 99285-25; J0131; J1644; U0003

== ENCOUNTER 2020-04-06 10:57 | Inpatient (IN) | payer OTHER ==
[2020-04-06] MEDS ORDERED: SODIUM CHLORIDE 1,000 ML IV STA (12:30)
[2020-04-06 13:44] LABS: BASO % 0.4 % (0-2.0); EOS % 1.4 % (0-4.5); HEMATOCRIT 34.3 % (35.4-49); HEMOGLOBIN 11.5 GM/dL (11.7-16.9); LYMPH % 9.1 % (8-40); MCH 30.1 pg (25.7-33.7); MCHC 33.4 g/dl (32.0-35.9); MEAN PLT VOLUME 8.4 fl (7.5-11.1); MONO % 8.6 % (3.8-10.2); NEUT % 80.5 % (42.8-82.8); PLATELET COUNT 199 K/MM3 (134-434); RBC 3.81 M/mm3 (4.00-5.60); RDW 14.2 % (11.9-15.9); WHITE BLOOD COUNT 7.9 K/mm3 (4.0-10.0)
--- NOTE | 2020-04-06 13:45 | PDOC ---
Documentation entered by Sarah Richter SCRIBE, acting as scribe for Chance Pierre MD. Chance Pierre MD: This documentation has been prepared by the Neelam bonilla Xhesika, SCRIBE, under my direction and personally reviewed by me in its entirety. I confirm that the documentation accurately reflects all work, treatment, procedures, and medical decision making performed by me. History of Present Illness - General Chief Complaint: Weakness Stated Complaint: INJURY Time Seen by Provider: 04/06/20 12:15 History Source: Patient Exam Limitations: No Limitations - History of Present Illness Initial Comments: 04/06/20 12:25 The patient is a 79y/o m with a pmh of BPH and recent ventral hernia repair who presents to the ED for weakness. Pt states he woke up this morning felt unsteady on his feet and was tremulous. Pt states he was very weak, not able to stand or ambulate this morning, prompting his arrival to the ED. Pt denies any falls or injuries. Pt states he was at his normal baseline last night. Pt states he has been eating normally but has not been drinking fluids as much as he should. Pt was admitted on 03/14/20 and dc 03/27/20 for urinary retention and obstructive uropathy. Pt still has indwelling chan. Pt denies any chest pain, SOB, fevers, chills/ N/V/D. Denies JENNINGS. Denies abdominal pain. Denies unilateral weakness/numbness. Allergies: NKDA Past History - Medical History Allergies/Adverse Reactions: Allergies Allergy/AdvReac Type Severity Reaction Status Date / Time No Known Allergies Allergy Verified 04/06/20 12:17 Home Medications: Ambulatory Orders Aspirin [ASA -] 81 mg PO DAILY #30 tab.chew 03/24/20 Bethanechol Chloride [Bethanechol Chloride -] 25 mg PO TID #45 tablet 03/24/20 Tamsulosin HCl [Flomax -] 0.8 mg PO DAILY@0830 #30 cap.er.24h 03/24/20 Anemia: No Asthma: No Cancer: No Cardiac Disorders: No CVA: No COPD: No CHF: No Dementia: No Diabetes: No GI Disorders: No Disorders: Yes (BPH) HTN: Yes Hypercholesterolemia: Yes Liver Disease: No Seizures: No Thyroid Disease: No - Surgical History Abdominal Surgery: Yes (Hernia Repair) Appendectomy: No Cardiac Surgery: No Cholecystectomy: Yes Lung Surgery: No Neurologic Surgery: No Orthopedic Surgery: No - Immunization History Immunization Up to Date: Yes - Psycho-Social/Smoking History Smoking History: Never smoked Have you smoked in the past 12 months: No Information on smoking cessation initiated: Yes - Substance Abuse Hx (Audit-C & DAST Scrn) How often the patient has a drink containing alcohol: Never Score: In Men: 4 or > Positive; In Women: 3 or > Positive: 0 Screen Result (Pos requires Nsg. Audit-10AR): Negative In the last yr the pt used illegal drug/Rx for NonMed reason: No Score: Yes response is considered Positive: 0 Screen Result (Positive result requires Nsg. DAST-10): Negative Review of Systems - Review of Systems Able to Perform ROS?: Yes Comments:: 04/06/20 12:29 GENERAL/CONSTITUTIONAL: No fever or chills. +weakness. +tremulous HEAD, EYES, EARS, NOSE AND THROAT: No change in vision. No ear pain or discharge. No sore throat. CARDIOVASCULAR: No chest pain, no shortness of breath, no loss of consciousness RESPIRATORY: No cough, wheezing, or hemoptysis. GASTROINTESTINAL: No nausea, vomiting, diarrhea or constipation. GENITOURINARY: No dysuria, frequency, or change in urination. MUSCULOSKELETAL: No joint or muscle swelling or pain. No neck or back pain. SKIN: No rash NEUROLOGIC: No vertigo, no change in strength/sensation. ENDOCRINE: No increased thirst. No abnormal weight change. HEMATOLOGIC/LYMPHATIC: No anemia, easy bleeding, or history of blood clots. ALLERGIC/IMMUNOLOGIC: No hives or skin allergy. *Physical Exam - Vital Signs Last Vital Signs Temp Pulse Resp BP Pulse Ox 99.1 F 93 H 19 107/68 99 04/06/20 12:04/06/20 12:04/06/20 12:04/06/20 12:04/06/20 12:18 - Physical Exam 04/06/20 13:49 GENERAL: Awake, alert, and fully oriented, in no acute distress. HEAD: No signs of trauma EYES: PERRLA, EOMI, sclera anicteric, conjunctiva clear ENT: Auricles normal inspection, hearing grossly normal, nares patent, oropharynx clear without exudates. Moist mucosa NECK: Nontender, no stepoffs, Normal ROM, supple, no lymphadenopathy, JVD, or masses LUNGS: Breath sounds equal, clear to auscultation bilaterally. No wheezes, and no crackles HEART: Regular rate and rhythm, normal S1 and S2, no murmurs, rubs or gallops ABDOMEN: Soft, nontender, normoactive bowel sounds. No guarding, no rebound. No masses EXTREMITIES: Normal range of motion, no edema. No clubbing or cyanosis. No cords, erythema, or tenderness NEUROLOGICAL: Cranial nerves II through XII intact. 5/5 strength and sensation in all extremities, Normal speech SKIN: Warm, Dry, normal turgor, no rashes or lesions noted. : chan in place draining dark urine ED Treatment Course - LABORATORY CBC & Chemistry Diagram: 04/06/20 12:35 04/06/20 12:35 Medical Decision Making - Medical Decision Making 04/06/20 13:50 79 M with generalized weakness. - Labs, UA, UCx - CXR - IVF 04/06/20 17:22 UA consistent with UTI Labs otherwise unremarkable Started on ceftriaxone Pt admitted to hospitalist Discharge - Discharge Information Problems reviewed: Yes Clinical Impression/Diagnosis: UTI (urinary tract infection) - Admission Yes - Follow up/Referral - Patient Discharge Instructions - Post Discharge Activity
[2020-04-06 14:24] LABS: ALBUMIN 3.2 g/dl (3.4-5.0); ALK PHOS 97 U/L (45-117); ANION GAP 8 MMOL/L (8-16); CALCIUM 8.8 mg/dL (8.5-10.1); CHLORIDE 104 mmol/L (98-107); CO2 25 mmol/L (21-32); GLUCOSE,RANDOM 96 mg/dL (74-106); POTASSIUM 4.6 mmol/L (3.5-5.1); SGOT/AST 54 U/L (15-37); SGPT/ALT 21 U/L (13-61); SODIUM 137 mmol/L (136-145)
[2020-04-06 14:27] LABS: BLOOD UREA NITROGEN 22.8 mg/dL (7-18)
[2020-04-06 14:59] LABS: EPI CELLS 7 /uL (0-25.1); HYALINE CASTS 7 /uL (0-3.1); URINE APPEARANCE TURBID; URINE BACTERIA >9,000 /uL (0-1359); URINE BILIRUBIN NEGATIVE (NEGATIVE); URINE COLOR ORANGE; URINE GLUCOSE (UA) NEGATIVE (NEGATIVE); URINE KETONE 1+ (NEGATIVE); URINE LEUK ESTERASE 3+ (NEGATIVE); URINE NITRITE POSITIVE (NEGATIVE); URINE PROTEIN 3+ (NEGATIVE); URINE WBC 8270 /uL (0-25.8)
[2020-04-06 15:02] LABS: URINE RBC 4671.9 /uL (0-23.9)
[2020-04-06 15:14] LABS: URINE CRYSTALS NON SEEN /hpf; YEAST NON SEEN (NEGATIVE)
--- OUTSIDE RECORDS SUMMARY | 2020-04-06 16:18 | XMS ---
:1940 Author Organization [facility] Support Name Relationship Address Phone RE, RETIRED Unavailable Unavailable Unavailable ONEAL MARTINEZ FRIEND [address] [place] [address] RE Unavailable Unavailable Unavailable DANDY JOHNSON SELF / SAME PATIENT [address] [place] [id number] Re-disclosure Warning The records that you are about to access may contain information from federally- assisted alcohol or drug abuse programs. If such information is present, then the following federally mandated warning applies: This information has been disclosed to you from records protected by federal confidentiality rules (42 CFR part 2). The federal rules prohibit you from making any further disclosure of this information unless further disclosure is expressly permitted by the written consent of the person to whom it pertains or as otherwise permitted by 42 CFR part 2. A general authorization for the release of medical or other information is NOT sufficient for this purpose. The Federal rules restrict any use of the information to criminally investigate or prosecute any alcohol or drug abuse patient.The records that you are about to access may contain highly sensitive health information, the redisclosure of which is protected by Article 27-F of the [facility] Public Health law. If you continue you may haveaccess to information: Regarding HIV / AIDS; Provided by facilities licensed or operated by the [facility] Office of Mental Health; or Provided by the [facility] Office for People With Developmental Disabilities. If such information is present, then the following [facility] mandated warning applies: This information has been disclosed to you from confidential records which are protected by state law. State law prohibits you from making any further disclosure of this information without the specific written consent of the person to whom it pertains, or as otherwise permitted by law. Any unauthorized further disclosure in violation of state law may result in a fine or care home sentence or both. A general authorization for the release of medical or other information is NOT sufficient authorization for further disclosure. Insurance Providers Payer name Policy type Policy ID Covered Covered libertarian's Policy P kelly / Coverage libertarian ID relationship to Loza Inf ormation type loza MEDICARE [id number] SP [id number] SELF PAY SP INSURANCE Results ID Date Data Source [id number] 03/14/2020 06:20:00 PM EDT [facility] Name Value Range Interpretation Description Data Sup porting Code Source(s) Document(s ) SARS [facility] coronavirus 2 RNA This lab was ordered by [facility] and reported by [facility]. ID Date Data Source [id number] 03/07/2020 02:48:00 PM EDT [facility] Name Value Range Interpretation Description Data Sup porting Code Source(s) Document(s ) SARS [facility] coronavirus 2 RNA This lab was ordered by KOFI garcia [facility] and reported by [facility]. ID Date Data Source [id number] 02/27/2020 01:10:00 PM EDT [facility] Name Value Range Interpretation Description Data Sup porting Code Source(s) Document(s ) SARS [facility] coronavirus 2 RNA This lab was ordered by [facility] and reported by [facility]. ID Date Data Source [id number] 02/22/2020 09:45:00 PM EDT [facility] Name Value Range Interpretation Description Data Sup porting Code Source(s) Document(s ) SARS [facility] coronavirus 2 RNA This lab was ordered by KOFI PRASHANTH garcia [facility] and reported by [facility]. Procedure
[2020-04-06] MEDS ORDERED: CEFTRIAXONE 1,000 MG in DEXTROSE 5%-WATER - 50 ML IVPB ONE (16:19)
[2020-04-06] MEDS ORDERED: CEFTRIAXONE 1 GM/50 ML BAG ONE (16:24)
--- NOTE | 2020-04-06 18:11 | HP ---
CHIEF COMPLAINT: Weakness and fatigue HISTORY OF PRESENT ILLNESS: Pt is a 79 yo male with PMHx of BPH and recent bilateral inguinal hernia repair, recently admitted on 03/14 for acute metabolic encephalopathy secondary to urinary retention which resolved after Grady insertion. Pt failed TOV at that time, and has returned with his Grady bag still present stating he did not get a chance to follow up with his urology (Dr. Mendoza) for evaluation. He is presenting with weakness, fatigue and "unsteadiness" on his feet. Pt states he has noticed some blood in his Grady bag, admitting to hematuria. Pt denies fever, chills, SOB, dysuria. Pt states he went to the apartment facility he lives at and was unable to receive a bed to sleep on, and has been sleeping on a chair since he was discharged on 03/26. Pt seems unkempt, having a fruity odour to his breath. ER course was notable for: (1) UA showing positive nitrite, 3+ leuk esterase, 3+ blood, >9k bacteria, >8k WBC and 1+ ketones (2) Grady replaced by primary (3) Recent Travel: Denies PAST MEDICAL HISTORY: As stated in HPI PAST SURGICAL HISTORY: cholecystectomy B/L inguinal hernia repair Social History: Smoking: denies Alcohol: denies Drugs: denies Allergies No Known Allergies Allergy (Verified 04/06/20 12:17) HOME MEDICATIONS: Home Medications Medication Instructions Recorded Aspirin [ASA -] 81 mg PO DAILY #30 tab.chew 03/24/20 Bethanechol Chloride [Bethanechol 25 mg PO TID #45 tablet 03/24/20 Chloride -] Tamsulosin HCl [Flomax -] 0.8 mg PO DAILY@0830 #30 cap.er.24h 03/24/20 REVIEW OF SYSTEMS CONSTITUTIONAL: weakness Absent: fever, chills, diaphoresis, weakness, malaise, loss of appetite, weight change HEENT: Absent: rhinorrhea, nasal congestion, throat pain, throat swelling, difficulty swallowing, mouth swelling, ear pain, eye pain, visual changes CARDIOVASCULAR: Absent: chest pain, syncope, palpitations, irregular heart rate, lightheadedness, peripheral edema RESPIRATORY: Absent: cough, shortness of breath, dyspnea with exertion, orthopnea, wheezing, stridor, hemoptysis GASTROINTESTINAL: Absent: abdominal pain, abdominal distension, nausea, vomiting, diarrhea, constipation, melena, hematochezia GENITOURINARY: Absent: dysuria, frequency, urgency, hesitancy, hematuria, flank pain, genital pain MUSCULOSKELETAL: Absent: myalgia, arthralgia, joint swelling, back pain, neck pain SKIN: Absent: rash, itching, pallor HEMATOLOGIC/IMMUNOLOGIC: Absent: easy bleeding, easy bruising, lymphadenopathy, frequent infections ENDOCRINE: Absent: unexplained weight gain, unexplained weight loss, heat intolerance, cold intolerance NEUROLOGIC: Absent: headache, focal weakness or paresthesias, dizziness, unsteady gait, seizure, mental status changes, bladder or bowel incontinence PSYCHIATRIC: Absent: anxiety, depression, suicidal or homicidal ideation, hallucinations. : tenderness on penis, Grady present PHYSICAL EXAMINATION Vital Signs - 24 hr 04/06/20 04/06/20 04/06/20 12:09 12:18 16:18 Temperature 99.1 F 99 F Pulse Rate 93 H Pulse Rate [ 95 H Apical] Respiratory 19 19 Rate Blood Pressure 107/68 Blood Pressure 132/79 [Right Arm] O2 Sat by Pulse 99 99 97 Oximetry (%) GENERAL: Awake, alert, and fully oriented, in no acute distress. HEAD: Normal with no signs of trauma. EYES: Pupils equal, round and reactive to light, extraocular movements intact, sclera anicteric, conjunctiva clear. No lid lag. EARS, NOSE, THROAT: Ears normal, nares patent, oropharynx clear without exudates. Moist mucous membranes. NECK: Normal range of motion, supple without lymphadenopathy, JVD, or masses. LUNGS: Breath sounds equal, clear to auscultation bilaterally. No wheezes, and no crackles. No accessory muscle use. HEART: Regular rate and rhythm, normal S1 and S2 without murmur, rub or gallop. ABDOMEN: Soft, nontender, not distended, normoactive bowel sounds, no guarding, no rebound, no masses. No hepatomegaly or splenomegaly. MUSCULOSKELETAL: Normal range of motion at all joints. No bony deformities or tenderness. No CVA tenderness. UPPER EXTREMITIES: 2+ pulses, warm, well-perfused. No cyanosis. No clubbing. No peripheral edema. LOWER EXTREMITIES: 2+ pulses, warm, well-perfused. No calf tenderness. No peripheral edema. NEUROLOGICAL: Cranial nerves II-XII intact. Normal speech. Normal gait. PSYCHIATRIC: Cooperative. Good eye contact. Appropriate mood and affect. SKIN: Warm, dry, normal turgor, no rashes or lesions noted, normal capillary refill. : Grady present, replaced Laboratory Results - last 24 hr 04/06/20 04/06/20 04/06/20 12:35 12:35 14:00 WBC 7.9 RBC 3.81 L Hgb 11.5 L Hct 34.3 L MCV 90.0 MCH 30.1 MCHC 33.4 RDW 14.2 Plt Count 199 D MPV 8.4 Absolute Neuts (auto) 6.4 Neutrophils % 80.5 Lymphocytes % 9.1 D Monocytes % 8.6 Eosinophils % 1.4 Basophils % 0.4 Nucleated RBC % 0 Sodium 137 Potassium 4.6 Chloride 104 Carbon Dioxide 25 Anion Gap 8 BUN 22.8 H Creatinine 1.0 Est GFR (CKD-EPI)AfAm 81.45 Est GFR (CKD-EPI)NonAf 70.27 Random Glucose 96 Calcium 8.8 Total Bilirubin 1.0 AST 54 H ALT 21 Alkaline Phosphatase 97 Creatine Kinase 909 H Creatine Kinase Index 1.3 CK-MB (CK-2) 12.6 H Troponin I < 0.02 Total Protein 7.0 Albumin 3.2 L TSH 0.85 Urine Color [place] Urine Appearance Turbid Urine pH 6.0 Ur Specific [place] 1.026 Urine Protein 3+ H Urine Glucose (UA) Negative Urine Ketones 1+ H Urine Blood 3+ H Urine Nitrite Positive H Urine Bilirubin Negative Urine Urobilinogen 1.0 Ur Leukocyte Esterase 3+ H Urine WBC (Auto) 8270 Urine RBC (Auto) 4671.9 Urine Casts (Auto) 7 U Pathogenic Cast Auto Non seen U Epithel Cells (Auto) 7 Urine Crystals (Auto) Non seen Urine Bacteria (Auto) >9,000 Urine Yeast (Auto) Non seen ASSESSMENT/PLAN: 79yo M with PMHx of BPH on Tamsulosin, from b/l indirect inguinal hernia repair ([facility], 03/09/2020) presenting with waekness and fatigue, unkempt appearance admitted for UTI. Pt was admitted 03/14 - 03/26 for acute metabolic encephalopathy secondary to urinary obstruction/MAXWELL and failed TOV. #UTI -UA showing 3+ LE and positive nitrites -indwelling Grady on admission, replaced in ED -Being treated empirically with Rocephin -Ucx pending #Hx of BPH -continue home Flomax -continue home bethanechol -Consulted Dr. Mendoza, urologist #Hx of chronic infarcts -seen on imaging on last admission -start statin if liver enzymes normal -cont ASA FEN NS @ 75cc/hr Monitor electrolytes Full diet PPx Lovenox 40 SQ Dispo: Admitted to med surg. On rocephin empirically pending ucx. Consulted urology, Dr. Mendoza. F/u am labs. Family Medical History Family History: As Documented Visit type - Medication Review Med list reviewed for High Risk Meds patients 65 and older: Yes - Emergency Visit Emergency Visit: Yes ED Registration Date: 04/06/20 Care time: The patient presented to the Emergency Department on the above date and was hospitalized for further evaluation of their emergent condition. - New Patient This patient is new to me today: No - Critical Care Critical Care patient: No ATTENDING PHYSICIAN STATEMENT I saw and evaluated the patient. I reviewed the resident's note and discussed the case with the resident. I agree with the resident's findings and plan as documented. SUBJECTIVE: OBJECTIVE: ASSESSMENT AND PLAN:
[2020-04-06] MEDS: SODIUM CHLORIDE 1,000 ML IV SCH (18:56)
--- NOTE | 2020-04-06 21:02 | PN ---
Teaching Attending Note Name of Resident: Harinder Al ATTENDING PHYSICIAN STATEMENT I saw and evaluated the patient. I reviewed the resident's note and discussed the case with the resident. I agree with the resident's findings and plan as documented. SUBJECTIVE: Patient seen and examined at bedside, admitted for complicated UTI 2/2 chronic indwelling chan catheter, lost to follow up w/ Urology. Chan catheter replaced in ED. OBJECTIVE: GA disheveled appearance, unkempt, fruit odor to breath HEENT NC/AT, dry MM, neck supple Chest CTAb, no crackles CVS S1, S2+, RRR Abd Soft, NT, BS+, ND Ext no LE edema, dry extremities, no calf tenderness mild suprapubic tenderness, erythema/irritation at penile urethra from chan, chan draining foul smelling urine w/ some bacterial sediment. Vital Signs (72 hours) 04/06/20 04/06/20 04/06/20 12:09 12:18 16:18 Temperature 99.1 F 99 F Pulse Rate 93 H Pulse Rate [ 95 H Apical] Respiratory 19 19 Rate Blood Pressure 107/68 Blood Pressure 132/79 [Right Arm] O2 Sat by Pulse 99 99 97 Oximetry (%) Laboratory Results - last 24 hr 04/06/20 04/06/20 04/06/20 12:35 12:35 14:00 WBC 7.9 RBC 3.81 L Hgb 11.5 L Hct 34.3 L MCV 90.0 MCH 30.1 MCHC 33.4 RDW 14.2 Plt Count 199 D MPV 8.4 Absolute Neuts (auto) 6.4 Neutrophils % 80.5 Lymphocytes % 9.1 D Monocytes % 8.6 Eosinophils % 1.4 Basophils % 0.4 Nucleated RBC % 0 Sodium 137 Potassium 4.6 Chloride 104 Carbon Dioxide 25 Anion Gap 8 BUN 22.8 H Creatinine 1.0 Est GFR (CKD-EPI)AfAm 81.45 Est GFR (CKD-EPI)NonAf 70.27 Random Glucose 96 Calcium 8.8 Total Bilirubin 1.0 AST 54 H ALT 21 Alkaline Phosphatase 97 Creatine Kinase 909 H Creatine Kinase Index 1.3 CK-MB (CK-2) 12.6 H Troponin I < 0.02 Total Protein 7.0 Albumin 3.2 L TSH 0.85 Urine Color [place] Urine Appearance Turbid Urine pH 6.0 Ur Specific [place] 1.026 Urine Protein 3+ H Urine Glucose (UA) Negative Urine Ketones 1+ H Urine Blood 3+ H Urine Nitrite Positive H Urine Bilirubin Negative Urine Urobilinogen 1.0 Ur Leukocyte Esterase 3+ H Urine WBC (Auto) 8270 Urine RBC (Auto) 4671.9 Urine Casts (Auto) 7 U Pathogenic Cast Auto Non seen U Epithel Cells (Auto) 7 Urine Crystals (Auto) Non seen Urine Bacteria (Auto) >9,000 Urine Yeast (Auto) Non seen Home Medications Medication Instructions Recorded Aspirin [ASA -] 81 mg PO DAILY #30 tab.chew 03/24/20 Bethanechol Chloride [Bethanechol 25 mg PO TID #45 tablet 03/24/20 Chloride -] Tamsulosin HCl [Flomax -] 0.8 mg PO DAILY@0830 #30 cap.er.24h 03/24/20 Current Medications Generic Name Dose Route Start Last Admin Trade Name Freq PRN Reason Stop Dose Admin Aspirin 81 mg 04/07/20 10:00 Asa - PO DAILY ÁLVARO Bethanechol Chloride 25 mg 04/07/20 10:00 Urecholine - PO TID ÁLVARO Heparin Sodium (Porcine) 5,000 unit 04/06/20 22:00 Heparin - SQ TID ÁLVARO Sodium Chloride 1,000 mls @ 75 mls/hr 04/06/20 18:00 04/06/20 18:56 Normal Saline - IV 75 mls/hr ASDIR ÁLVARO Administration Ceftriaxone Sodium 1 gm/ 50 mls @ 100 mls/hr 04/07/20 10:00 Dextrose IVPB DAILY ÁLVARO Tamsulosin HCl 0.8 mg 04/07/20 10:00 Flomax - PO DAILY@0830 [facility] ASSESSMENT AND PLAN: 79 M BPH w/ LUTS Complicated UTI 2/2 chronic indwelling chan Deconditioned Malnourished Failure to thrive Plan: Replaced chan to gravity Ceftriaxone for UTI, follow blood/urine cultures Hydration w/ NS Needs evaluation for VNS as patient appears to not properly care for himself w/ ADL's/IADL's Urology evaluation and follow up for prostatism DVT ppx: Heparin SC
[2020-04-06] MEDS: HEPARIN NA (PORCINE) 5,000 UNITS/ML 1ML VIAL SQ SCH (23:44)
[2020-04-07] MEDS: HEPARIN NA (PORCINE) 5,000 UNITS/ML 1ML VIAL SQ SCH ×3 (05:55→22:03)
[2020-04-07 07:56] LABS: BASO % 0.6 % (0-2.0); EOS % 6.3 % (0-4.5); HEMOGLOBIN 9.6 GM/dL (11.7-16.9); LYMPH % 12.6 % (8-40); MCH 29.4 pg (25.7-33.7); MCHC 33.2 g/dl (32.0-35.9); MEAN CELL VOLUME 88.5 fl (80-96); MEAN PLT VOLUME 8.5 fl (7.5-11.1); MONO % 10.2 % (3.8-10.2); NEUT % 70.3 % (42.8-82.8); PLATELET COUNT 162 K/MM3 (134-434); RBC 3.27 M/mm3 (4.00-5.60); RDW 13.9 % (11.9-15.9); WHITE BLOOD COUNT 4.6 K/mm3 (4.0-10.0)
[2020-04-07 08:30] LABS: POTASSIUM 3.4 mmol/L (3.5-5.1)
[2020-04-07 09:02] LABS: ALBUMIN 2.4 g/dl (3.4-5.0); BILIRUBIN,TOTAL 0.8 mg/dL (0.2-1); BLOOD UREA NITROGEN 18.6 mg/dL (7-18); CALCIUM 7.9 mg/dL (8.5-10.1); CREATININE 0.7 mg/dL (0.55-1.3); MAGNESIUM 1.8 mg/dL (1.8-2.4); PHOSPHOROUS 3.3 mg/dL (2.5-4.9); TOT PROT 5.4 g/dl (6.4-8.2)
--- NOTE | 2020-04-07 09:51 | EKG ---
Test Reason : Blood Pressure : / mmHG Vent. Rate : 095 BPM Atrial Rate : 095 BPM P-R Int : 178 ms QRS Dur : 092 ms QT Int : 366 ms P-R-T Axes : 061 052 046 degrees QTc Int : 459 ms POOR DATA QUALITY, INTERPRETATION MAY BE ADVERSELY AFFECTED NORMAL SINUS RHYTHM NONSPECIFIC ST ABNORMALITY ABNORMAL ECG WHEN COMPARED WITH ECG OF 14-MAR-2020 13:55, MINIMAL CRITERIA FOR INFERIOR INFARCT ARE NO LONGER PRESENT NONSPECIFIC T WAVE ABNORMALITY HAS REPLACED INVERTED T WAVES IN INFERIOR LEADS Confirmed by CSEAR KATE MD ([id number]) on 04/07/2020 9:51:13 AM Referred By: Confirmed By:CESAR KATE MD
[2020-04-07] MEDS ORDERED: ENOXAPARIN NA (PORCINE) 40 MG/0.4 ML DISP.SYRIN SQ SCH (10:00)
[2020-04-07] MEDS ORDERED: cefTRIAXone SODIUM 1 GM VIAL ONE (10:13)
[2020-04-07] MEDS ORDERED: PT OWN MED DRAWER 7, Y5N ONE ×3 (10:13→22:00)
[2020-04-07] MEDS ORDERED: DEXTROSE 5%-WATER - 50 ML IVPB ONE (10:13)
[2020-04-07] MEDS: BETHANECHOL CHLORIDE 25 MG TABLET PO SCH ×3 (10:15→22:03)
[2020-04-07] MEDS: CEFTRIAXONE 1 GM in DEXTROSE 5%-WATER - 50 ML IVPB SCH (10:15)
[2020-04-07] MEDS: ASPIRIN 81 MG CHEWABLE TABLETS PO SCH (10:15)
[2020-04-07] MEDS: TAMSULOSIN HCL 0.4 MG CAP PO SCH (10:15)
[2020-04-07] MEDS: SODIUM CHLORIDE 1,000 ML IV SCH (13:36)
--- NOTE | 2020-04-07 14:00 | CONSULT ---
Consult Consult Specialty:: Nephrology Reason for Consultation:: azotemia - History of Present Illness Chief Complaint: fatigue and weakness History of Present Illness: Pt is an 79 year old male with pmhx of MAXWELL from urinary retention. He came to the ER with unsteady feeling and fatigue. He was found to have a UTI. he was discharged with a chan as he did not tolerated voiding trials. He was unable to follow with urology. He denies fevers or chill. s - History Source History Provided By: Patient - Past Medical History Renal/: Yes: Other (maxwell) - Smoking History Smoking history: Never smoked Have you smoked in the past 12 months: No Home Medications - Allergies Allergies/Adverse Reactions: Allergies Allergy/AdvReac Type Severity Reaction Status Date / Time No Known Allergies Allergy Verified 04/06/20 12:17 - Home Medications Home Medications: Ambulatory Orders Aspirin [ASA -] 81 mg PO DAILY #30 tab.chew 03/24/20 Bethanechol Chloride [Bethanechol Chloride -] 25 mg PO TID #45 tablet 03/24/20 Tamsulosin HCl [Flomax -] 0.8 mg PO DAILY@0830 #30 cap.er.24h 03/24/20 Family Medical History Family History: Denies Review of Systems - Review of Systems Constitutional: reports: Loss of Appetite, Malaise, Weakness Eyes: reports: No Symptoms HENT: reports: No Symptoms Neck: reports: No Symptoms Cardiovascular: reports: No Symptoms Respiratory: reports: No Symptoms Gastrointestinal: reports: No Symptoms Genitourinary: reports: Other (chan) Musculoskeletal: reports: No Symptoms Integumentary: reports: No Symptoms Neurological: reports: No Symptoms Endocrine: reports: No Symptoms Hematology/Lymphatic: reports: No Symptoms Physical Exam Vital Signs: Vital Signs Temperature 98.8 F 04/07/20 13:00 Pulse Rate 82 04/07/20 13:00 Respiratory Rate 19 04/07/20 13:00 Blood Pressure 109/69 04/07/20 13:00 O2 Sat by Pulse Oximetry (%) 95 04/07/20 13:00 Constitutional: Yes: Calm Eyes: Yes: Conjunctiva Clear HENT: Yes: Atraumatic Neck: Yes: Supple Cardiovascular: Yes: S1, S2 Respiratory: Yes: CTA Bilaterally Gastrointestinal: Yes: Normal Bowel Sounds, Soft Renal/: Yes: Chan Present, Hematuria Musculoskeletal: Yes: Muscle Weakness Edema: No Neurological: Yes: Oriented Labs: CBC, BMP 04/07/20 06:25 04/07/20 06:25 Problem List - Problems (1) UTI (urinary tract infection) Code(s): N39.0 - URINARY TRACT INFECTION, SITE NOT SPECIFIED Assessment/Plan Current Medications Generic Name Dose Route Start Last Admin Trade Name Freq PRN Reason Stop Dose Admin Aspirin 81 mg 04/07/20 10:00 04/07/20 10:15 Asa - PO 81 mg DAILY ÁLVARO Administration Bethanechol Chloride 25 mg 04/07/20 10:00 04/07/20 13:26 Urecholine - PO 25 mg TID ÁLVARO Administration Heparin Sodium (Porcine) 5,000 unit 04/06/20 22:00 04/07/20 13:27 Heparin - SQ 5,000 unit TID ÁLVARO Administration Sodium Chloride 1,000 mls @ 75 mls/hr 04/06/20 18:00 04/07/20 13:36 Normal Saline - IV 75 mls/hr ASDIR ÁLVARO Administration Ceftriaxone Sodium 1 gm/ 50 mls @ 100 mls/hr 04/07/20 10:00 04/07/20 10:15 Dextrose IVPB 100 mls/hr DAILY ÁLVARO Administration Tamsulosin HCl 0.8 mg 04/07/20 10:00 04/07/20 10:15 Flomax - PO 0.8 mg DAILY@0830 ÁLVARO Administration Impression 1. azotemia 2. s/p hernia repair 3. hx hydronephrosis 4. urinary obstruction requiring chronic chan 5. UTI 6. hematuria, mild Plan - cont fluids - urology eval - cont abx - follow cultures - cont to monitor lytes
--- NOTE | 2020-04-07 15:41 | PN ---
Physical Exam: SUBJECTIVE: Patient seen and examined. States feels much better, denies fever/chills, suprapubic pain. OBJECTIVE: Vital Signs Period Temp Pulse Resp BP Sys/[place] Pulse Ox Last 24 Hr 98 F-99 F 70-95 18-20 109-132/63-79 95-97 GENERAL: Awake, alert, and fully oriented, in no acute distress. HEAD: Normal with no signs of trauma. EYES: Pupils equal, round and reactive to light, extraocular movements intact, sclera anicteric, conjunctiva clear. No lid lag. EARS, NOSE, THROAT: Ears normal, nares patent, oropharynx clear without exudates. Moist mucous membranes. NECK: Normal range of motion, supple without lymphadenopathy, JVD, or masses. LUNGS: Breath sounds equal, clear to auscultation bilaterally. No wheezes, and no crackles. No accessory muscle use. HEART: Regular rate and rhythm, normal S1 and S2 without murmur, rub or gallop. ABDOMEN: Soft, nontender, not distended, normoactive bowel sounds, no guarding, no rebound, no masses. No hepatomegaly or splenomegaly. MUSCULOSKELETAL: Normal range of motion at all joints. No bony deformities or tenderness. No CVA tenderness. UPPER EXTREMITIES: 2+ pulses, warm, well-perfused. No cyanosis. No clubbing. No peripheral edema. LOWER EXTREMITIES: 2+ pulses, warm, well-perfused. No calf tenderness. No peripheral edema. NEUROLOGICAL: Cranial nerves II-XII intact. Normal speech. Normal gait. PSYCHIATRIC: Cooperative. Good eye contact. Appropriate mood and affect. SKIN: Warm, dry, normal turgor, no rashes or lesions noted, normal capillary refill. : Grady present, red tinged urine Laboratory Results - last 24 hr 04/06/20 04/07/20 04/07/20 16:20 06:25 06:25 WBC 4.6 RBC 3.27 L Hgb 9.6 L Hct 29.0 L D MCV 88.5 MCH 29.4 MCHC 33.2 RDW 13.9 Plt Count 162 MPV 8.5 Absolute Neuts (auto) 3.3 Neutrophils % 70.3 Lymphocytes % 12.6 D Monocytes % 10.2 Eosinophils % 6.3 H D Basophils % 0.6 Nucleated RBC % 0 Sodium 139 Potassium 3.4 L Chloride 109 H Carbon Dioxide 24 Anion Gap 6 L BUN 18.6 H Creatinine 0.7 Est GFR (CKD-EPI)AfAm 102.58 Est GFR (CKD-EPI)NonAf 88.50 Random Glucose 82 Calcium 7.9 L Phosphorus 3.3 Magnesium 1.8 Total Bilirubin 0.8 AST 34 ALT 15 Alkaline Phosphatase 72 Total Protein 5.4 L Albumin 2.4 L COVID-19 (JEAN) Not detected Active Medications Generic Name Dose Route Start Last Admin Trade Name Nancy PRN Reason Stop Dose Admin Aspirin 81 mg 04/07/20 10:00 04/07/20 10:15 Asa - PO 81 mg DAILY ÁLVARO Administration Bethanechol Chloride 25 mg 04/07/20 10:00 04/07/20 13:26 Urecholine - PO 25 mg TID ÁLVARO Administration Heparin Sodium (Porcine) 5,000 unit 04/06/20 22:00 04/07/20 13:27 Heparin - SQ 5,000 unit TID ÁLVARO Administration Sodium Chloride 1,000 mls @ 75 mls/hr 04/06/20 18:00 04/07/20 13:36 Normal Saline - IV 75 mls/hr ASDIR ÁLVARO Administration Ceftriaxone Sodium 1 gm/ 50 mls @ 100 mls/hr 04/07/20 10:00 04/07/20 10:15 Dextrose IVPB 100 mls/hr DAILY ÁLVARO Administration Tamsulosin HCl 0.8 mg 04/07/20 10:00 04/07/20 10:15 Flomax - PO 0.8 mg DAILY@0830 ÁLVARO Administration ASSESSMENT/PLAN: 79yo M with PMHx of BPH on Tamsulosin, from b/l indirect inguinal hernia repair ([facility], 03/09/2020) presenting with waekness and fatigue, unkempt appearance admitted for UTI. Pt was admitted 03/14 - 03/26 for acute metabolic encephalopathy secondary to urinary obstruction/MAXWELL and failed TOV. #UTI -indwelling Grady on admission, replaced in ED -Being treated empirically with Rocephin -Ucx pending, prelim lactose fermenting gram - and groupD strep/enterococcus #Hx of BPH -continue home Flomax/bethanechol -Consulted Dr. Mendoza, urologist -renal and pelvic/bladder US per Dr. Mendoza #Hx of chronic infarcts -seen on imaging on last admission -restarted statin -cont ASA FEN NS @ 75cc/hr Monitor electrolytes Full diet PPx Lovenox 40 SQ Dispo: Admitted to med surg. On rocephin empirically pending ucx. Consulted urology, Dr. Mendoza. F/u am labs. Visit type - Emergency Visit Emergency Visit: Yes ED Registration Date: 04/06/20 Care time: The patient presented to the Emergency Department on the above date and was hospitalized for further evaluation of their emergent condition. - New Patient This patient is new to me today: No - Critical Care Critical Care patient: No - Medication Review Med list reviewed for High Risk Meds patients 65 and older: Yes ATTENDING PHYSICIAN STATEMENT I saw and evaluated the patient. I reviewed the resident's note and discussed the case with the resident. I agree with the resident's findings and plan as documented. SUBJECTIVE: OBJECTIVE: ASSESSMENT AND PLAN:
--- NOTE | 2020-04-07 16:08 | CONSULT ---
Consult Consult Specialty:: UROLOGY Reason for Consultation:: UTI & Urinary retention - History of Present Illness Chief Complaint: 79 Y/O Male with PMHx of BPH and recent bilateral inguinal hernia repair, recently admitted on 03/14 for acute metabolic encephalopathy secondary to urinary retention which resolved after Chan insertion. Pt failed TOV at that time, he was D/C home with chan catheter and urocholine. He developed UTI and admitted for IV abx and further treatment. WBC 4.6 HB 9.6. BUN 18.6 S.Creat 0.7. - Past Medical History Renal/: Yes: Other (daylin) - Smoking History Smoking history: Never smoked Have you smoked in the past 12 months: No Home Medications - Allergies Allergies/Adverse Reactions: Allergies Allergy/AdvReac Type Severity Reaction Status Date / Time No Known Allergies Allergy Verified 04/06/20 12:17 - Home Medications Home Medications: Ambulatory Orders Aspirin [ASA -] 81 mg PO DAILY #30 tab.chew 03/24/20 Bethanechol Chloride [Bethanechol Chloride -] 25 mg PO TID #45 tablet 03/24/20 Tamsulosin HCl [Flomax -] 0.8 mg PO DAILY@0830 #30 cap.er.24h 03/24/20 Family Medical History Family History: Denies Physical Exam Vital Signs: Vital Signs Temperature 98.8 F 04/07/20 13:00 Pulse Rate 82 04/07/20 13:00 Respiratory Rate 19 04/07/20 13:00 Blood Pressure 109/69 04/07/20 13:00 O2 Sat by Pulse Oximetry (%) 95 04/07/20 13:00 Labs: CBC, BMP 04/07/20 06:25 04/07/20 06:25 Assessment/Plan UTI Chronic urinary retention BPH Plan: Urocholin 25 mg TID Flomax 0.8 mg OD Keep chan and will give him another TOV in 2 days if fail then will schedule him for SPC Keep ceftriaxone and ID consult
[2020-04-07] MEDS ORDERED: POTASSIUM CHLORIDE TABS 20 MEQ TABLET.ER (FP) PO ONE (17:06)
--- NOTE | 2020-04-07 17:06 | PN ---
Teaching Attending Note Name of Resident: Harinder Al ATTENDING PHYSICIAN STATEMENT I saw and evaluated the patient. I reviewed the resident's note and discussed the case with the resident. I agree with the resident's findings and plan as documented. SUBJECTIVE: pt seen and examined, refused to talk, stated he wants to sleep OBJECTIVE: Last Vital Signs Temp Pulse Resp BP Pulse Ox 98.8 F 82 19 109/69 95 04/07/20 13:00 04/07/20 13:00 04/07/20 13:00 04/07/20 13:00 04/07/20 13:00 GENERAL: Awake, alert, and fully oriented, in no acute distress. LUNGS: Breath sounds equal, clear to auscultation bilaterally. No wheezes, and no crackles. No accessory muscle use. HEART: Regular rate and rhythm, normal S1 and S2 ABDOMEN: Soft, nontender, not distended, chan in place, hematuria noted LOWER EXTREMITIES: 2+ pulses, warm, well-perfused. No calf tenderness. No peripheral edema. NEUROLOGICAL: Cranial nerves II-XII intact. Normal speech. CBCD WBC 4.6 K/mm3 (4.0-10.0) 04/07/20 06:25 RBC 3.27 M/mm3 (4.00-5.60) L 04/07/20 06:25 Hgb 9.6 GM/dL (11.7-16.9) L 04/07/20 06:25 Hct 29.0 % (35.4-49) L D 04/07/20 06:25 MCV 88.5 fl (80-96) 04/07/20 06:25 MCHC 33.2 g/dl (32.0-35.9) 04/07/20 06:25 RDW 13.9 % (11.9-15.9) 04/07/20 06:25 Plt Count 162 K/MM3 (134-434) 04/07/20 06:25 MPV 8.5 fl (7.5-11.1) 04/07/20 06:25 CMP Sodium 139 mmol/L (136-145) 04/07/20 06:25 Potassium 3.4 mmol/L (3.5-5.1) L 04/07/20 06:25 Chloride 109 mmol/L (98-107) H 04/07/20 06:25 Carbon Dioxide 24 mmol/L (21-32) 04/07/20 06:25 Anion Gap 6 MMOL/L (8-16) L 04/07/20 06:25 BUN 18.6 mg/dL (7-18) H 04/07/20 06:25 Creatinine 0.7 mg/dL (0.55-1.3) 04/07/20 06:25 Random Glucose 82 mg/dL (74-106) 04/07/20 06:25 Calcium 7.9 mg/dL (8.5-10.1) L 04/07/20 06:25 Total Bilirubin 0.8 mg/dL (0.2-1) 04/07/20 06:25 AST 34 U/L (15-37) 04/07/20 06:25 ALT 15 U/L (13-61) 04/07/20 06:25 Alkaline Phosphatase 72 U/L (45-117) 04/07/20 06:25 Total Protein 5.4 g/dl (6.4-8.2) L 04/07/20 06:25 Albumin 2.4 g/dl (3.4-5.0) L 04/07/20 06:25 CARDIAC ENZYMES Creatine Kinase 909 U/L (26-308) H 04/06/20 12:35 Troponin I < 0.02 ng/ml (0.00-0.05) 04/06/20 12:35 Active Medications Aspirin (Asa -) 81 mg PO DAILY [facility] Last Admin: 04/07/20 10:15 Dose: 81 mg Documented by: Atorvastatin Calcium (Lipitor -) 40 mg PO [facility] Bethanechol Chloride (Urecholine -) 25 mg PO TID [facility] Last Admin: 04/07/20 13:26 Dose: 25 mg Documented by: Heparin Sodium (Porcine) (Heparin -) 5,000 unit SQ TID [facility] Last Admin: 04/07/20 13:27 Dose: 5,000 unit Documented by: Sodium Chloride (Normal Saline -) 1,000 mls @ 75 mls/hr IV ASDIR [facility] Last Admin: 04/07/20 13:36 Dose: 75 mls/hr Documented by: Ceftriaxone Sodium 1 gm/ (Dextrose) 50 mls @ 100 mls/hr IVPB DAILY [facility] Last Admin: 04/07/20 10:15 Dose: 100 mls/hr Documented by: Tamsulosin HCl (Flomax -) 0.8 mg PO DAILY@0830 [facility] Last Admin: 04/07/20 10:15 Dose: 0.8 mg Documented by: ASSESSMENT AND PLAN: 79 year old male with history of BPH s/p TURP+chan (after failing TOVx3), s/p inguinal hernia repair (Dr. 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
[2020-04-07] MEDS: ATORVASTATIN CA 40 MG TABLET (FP) PO SCH (22:02)
[2020-04-08] MEDS: SODIUM CHLORIDE 1,000 ML IV SCH (01:51)
[2020-04-08] MEDS ORDERED: PT OWN MED DRAWER 7, Y5N ONE ×2 (04:33→06:46)
[2020-04-08] MEDS: HEPARIN NA (PORCINE) 5,000 UNITS/ML 1ML VIAL SQ SCH ×3 (06:32→20:58)
[2020-04-08] MEDS: BETHANECHOL CHLORIDE 25 MG TABLET PO SCH ×3 (06:32→20:59)
[2020-04-08 07:20] LABS: HEMATOCRIT 28.9 % (35.4-49); HEMOGLOBIN 9.6 GM/dL (11.7-16.9); MCH 29.4 pg (25.7-33.7); MCHC 33.1 g/dl (32.0-35.9); MEAN CELL VOLUME 88.7 fl (80-96); MEAN PLT VOLUME 8.2 fl (7.5-11.1); PLATELET COUNT 159 K/MM3 (134-434); RBC 3.26 M/mm3 (4.00-5.60); RDW 14.2 % (11.9-15.9); WHITE BLOOD COUNT 4.3 K/mm3 (4.0-10.0)
[2020-04-08 07:48] LABS: BLOOD UREA NITROGEN 12.8 mg/dL (7-18); CALCIUM 7.7 mg/dL (8.5-10.1); CREATININE 0.7 mg/dL (0.55-1.3); MAGNESIUM 1.7 mg/dL (1.8-2.4); PHOSPHOROUS 3.1 mg/dL (2.5-4.9)
[2020-04-08] MEDS ORDERED: DEXTROSE 5%-WATER - 50 ML IVPB ONE (08:45)
[2020-04-08] MEDS ORDERED: cefTRIAXone SODIUM 1 GM VIAL ONE (08:45)
[2020-04-08] MEDS: TAMSULOSIN HCL 0.4 MG CAP PO SCH (09:06)
[2020-04-08] MEDS: ASPIRIN 81 MG CHEWABLE TABLETS PO SCH (09:06)
[2020-04-08] MEDS: CEFTRIAXONE 1 GM in DEXTROSE 5%-WATER - 50 ML IVPB SCH (09:07)
--- NOTE | 2020-04-08 09:33 | PN ---
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
[2020-04-08] MEDS ORDERED: MAGNESIUM 2GM/50ML STERILE WATER IVPB IVPB ONE (09:45)
--- NOTE | 2020-04-08 12:24 | PN ---
Physical Exam: SUBJECTIVE: Patient seen and examined. OBJECTIVE: Vital Signs Period Temp Pulse Resp BP Sys/Frias Pulse Ox Last 24 Hr 98.4 F-98.8 F 68-82 18-20 109-135/69-86 95-97 GENERAL: Awake, alert, and fully oriented, in no acute distress. HEAD: Normal with no signs of trauma. EYES: Pupils equal, round and reactive to light, extraocular movements intact, sclera anicteric, conjunctiva clear. No lid lag. EARS, NOSE, THROAT: Ears normal, nares patent, oropharynx clear without exudates. Moist mucous membranes. NECK: Normal range of motion, supple without lymphadenopathy, JVD, or masses. LUNGS: Breath sounds equal, clear to auscultation bilaterally. No wheezes, and no crackles. No accessory muscle use. HEART: Regular rate and rhythm, normal S1 and S2 without murmur, rub or gallop. ABDOMEN: Soft, nontender, not distended, normoactive bowel sounds, no guarding, no rebound, no masses. No hepatomegaly or splenomegaly. MUSCULOSKELETAL: Normal range of motion at all joints. No bony deformities or tenderness. No CVA tenderness. UPPER EXTREMITIES: 2+ pulses, warm, well-perfused. No cyanosis. No clubbing. No peripheral edema. LOWER EXTREMITIES: 2+ pulses, warm, well-perfused. No calf tenderness. No peripheral edema. NEUROLOGICAL: Cranial nerves II-XII intact. Normal speech. Normal gait. PSYCHIATRIC: Cooperative. Good eye contact. Appropriate mood and affect. SKIN: Warm, dry, normal turgor, no rashes or lesions noted, normal capillary refill. : Grady present, clear urine Laboratory Results - last 24 hr 04/08/20 04/08/20 06:45 06:45 WBC 4.3 RBC 3.26 L Hgb 9.6 L Hct 28.9 L MCV 88.7 MCH 29.4 MCHC 33.1 RDW 14.2 Plt Count 159 MPV 8.2 Sodium 140 Potassium 4.0 Chloride 110 H Carbon Dioxide 26 Anion Gap 4 L BUN 12.8 Creatinine 0.7 Est GFR (CKD-EPI)AfAm 102.58 Est GFR (CKD-EPI)NonAf 88.50 Random Glucose 89 Calcium 7.7 L Phosphorus 3.1 Magnesium 1.7 L Active Medications Generic Name Dose Route Start Last Admin Trade Name Freq PRN Reason Stop Dose Admin Aspirin 81 mg 04/07/20 10:00 04/08/20 09:06 Asa - PO 81 mg DAILY ÁLVARO Administration Atorvastatin Calcium 40 mg 04/07/20 22:00 04/07/20 22:02 Lipitor - PO 40 mg HS ÁLVARO Administration Bethanechol Chloride 25 mg 04/07/20 10:00 04/08/20 06:32 Urecholine - PO 25 mg TID ÁLVARO Administration Heparin Sodium (Porcine) 5,000 unit 04/06/20 22:00 04/08/20 06:32 Heparin - SQ 5,000 unit TID ÁLVARO Administration Sodium Chloride 1,000 mls @ 75 mls/hr 04/06/20 18:00 04/08/20 01:51 Normal Saline - IV 75 mls/hr ASDIR ÁLVARO Administration Ceftriaxone Sodium 1 gm/ 50 mls @ 100 mls/hr 04/07/20 10:00 04/08/20 09:07 Dextrose IVPB 100 mls/hr DAILY ÁLVARO Administration Tamsulosin HCl 0.8 mg 04/07/20 10:00 04/08/20 09:06 Flomax - PO 0.8 mg DAILY@0830 ÁLVARO Administration ASSESSMENT/PLAN: 79yo M with PMHx of BPH on Tamsulosin, from b/l indirect inguinal hernia repair ([facility] Robert Coker, 03/09/2020) presenting with waekness and fatigue, unkempt appearance admitted for UTI. Pt was admitted 03/14 - 03/26 for acute metabolic encephalopathy secondary to urinary obstruction/MAXWELL and failed TOV. #UTI -indwelling Grady on admission, replaced in ED -Being treated empirically with Rocephin -Per urology, TOV on 04/09; if fails then suprapubic catheter #Hx of BPH -continue home Flomax/bethanechol -Consulted Dr. Mendoza, urologist -renal and pelvic/bladder US - no hydronephrosis #Hx of chronic infarcts -seen on imaging on last admission; on ASA and statin FEN NS @ 75cc/hr Monitor electrolytes Reg diet PPx Heparin 5000u TID Visit type - Emergency Visit Emergency Visit: Yes ED Registration Date: 04/06/20 Care time: The patient presented to the Emergency Department on the above date and was hospitalized for further evaluation of their emergent condition. - New Patient This patient is new to me today: No - Critical Care Critical Care patient: No - Medication Review Med list reviewed for High Risk Meds patients 65 and older: Yes ATTENDING PHYSICIAN STATEMENT I saw and evaluated the patient. I reviewed the resident's note and discussed the case with the resident. I agree with the resident's findings and plan as documented. SUBJECTIVE: OBJECTIVE: ASSESSMENT AND PLAN:
--- NOTE | 2020-04-08 13:54 | PN ---
Progress Note, Physician History of Present Illness: Pt seen and examined at bedside. He is awake and alert. He denies shortness of breath. - Current Medication List Current Medications: Active Medications Aspirin (Asa -) 81 mg PO DAILY [facility] Last Admin: 04/08/20 09:06 Dose: 81 mg Documented by: Atorvastatin Calcium (Lipitor -) 40 mg PO HS [facility] Last Admin: 04/07/20 22:02 Dose: 40 mg Documented by: Bethanechol Chloride (Urecholine -) 25 mg PO TID [facility] Last Admin: 04/08/20 13:24 Dose: 25 mg Documented by: Heparin Sodium (Porcine) (Heparin -) 5,000 unit SQ TID [facility] Last Admin: 04/08/20 13:24 Dose: 5,000 unit Documented by: Sodium Chloride (Normal Saline -) 1,000 mls @ 75 mls/hr IV ASDIR [facility] Last Admin: 04/08/20 01:51 Dose: 75 mls/hr Documented by: Ceftriaxone Sodium 1 gm/ (Dextrose) 50 mls @ 100 mls/hr IVPB DAILY [facility] Last Admin: 04/08/20 09:07 Dose: 100 mls/hr Documented by: Tamsulosin HCl (Flomax -) 0.8 mg PO DAILY@0830 [facility] Last Admin: 04/08/20 09:06 Dose: 0.8 mg Documented by: - Objective Vital Signs: Vital Signs Temperature 98.7 F 04/08/20 08:18 Pulse Rate 75 04/08/20 08:18 Respiratory Rate 18 04/08/20 09:00 Blood Pressure 135/86 04/08/20 08:18 O2 Sat by Pulse Oximetry (%) 96 04/08/20 09:00 Constitutional: Yes: Calm Eyes: Yes: Conjunctiva Clear HENT: Yes: Atraumatic Neck: Yes: Supple Cardiovascular: Yes: S1, S2 Respiratory: Yes: CTA Bilaterally Gastrointestinal: Yes: Normal Bowel Sounds, Soft Genitourinary: Yes: Chan Present Edema: Yes Edema: LLE: 1+, RLE: 1+ Neurological: Yes: Oriented Psychiatric: Yes: Oriented Labs: CBC, BMP 04/08/20 06:45 04/08/20 06:45 Problem List - Problems (1) UTI (urinary tract infection) Code(s): N39.0 - URINARY TRACT INFECTION, SITE NOT SPECIFIED Assessment/Plan Current Medications Generic Name Dose Route Start Last Admin Trade Name Nancy PRN Reason Stop Dose Admin Aspirin 81 mg 04/07/20 10:00 04/08/20 09:06 Asa - PO 81 mg DAILY ÁLVARO Administration Atorvastatin Calcium 40 mg 04/07/20 22:00 04/07/20 22:02 Lipitor - PO 40 mg HS ÁLVARO Administration Bethanechol Chloride 25 mg 04/07/20 10:00 04/08/20 13:24 Urecholine - PO 25 mg TID ÁLVARO Administration Heparin Sodium (Porcine) 5,000 unit 04/06/20 22:00 04/08/20 13:24 Heparin - SQ 5,000 unit TID ÁLVARO Administration Sodium Chloride 1,000 mls @ 75 mls/hr 04/06/20 18:00 04/08/20 01:51 Normal Saline - IV 75 mls/hr ASDIR ÁLVARO Administration Ceftriaxone Sodium 1 gm/ 50 mls @ 100 mls/hr 04/07/20 10:00 04/08/20 09:07 Dextrose IVPB 100 mls/hr DAILY ÁLVARO Administration Tamsulosin HCl 0.8 mg 04/07/20 10:00 04/08/20 09:06 Flomax - PO 0.8 mg DAILY@0830 ÁLVARO Administration Impression 1. azotemia 2. s/p hernia repair 3. hx hydronephrosis 4. urinary obstruction requiring chronic chan 5. UTI 6. hematuria, mild Plan - d/c fluids as he has lower ext edema - if edema persists after next few days can give a dose of lasix - renal function is stable - cont abx - follow cultures
--- NOTE | 2020-04-08 15:15 | PN ---
Teaching Attending Note Name of Resident: Harinder Al ATTENDING PHYSICIAN STATEMENT I saw and evaluated the patient. I reviewed the resident's note and discussed the case with the resident. I agree with the resident's findings and plan as documented. SUBJECTIVE: pt seen and examined OBJECTIVE: Last Vital Signs Temp Pulse Resp BP Pulse Ox 98.3 F 73 18 110/67 96 04/08/20 14:51 04/08/20 14:51 04/08/20 14:51 04/08/20 14:51 04/08/20 14:51 GENERAL: Awake, alert, and fully oriented, in no acute distress. LUNGS: Breath sounds equal, clear to auscultation bilaterally. No wheezes, and no crackles. No accessory muscle use. HEART: Regular rate and rhythm, normal S1 and S2 ABDOMEN: Soft, nontender, not distended, chan in place, hematuria noted, more clear today LOWER EXTREMITIES: 2+ pulses, warm, well-perfused. No calf tenderness. No peripheral edema. NEUROLOGICAL: Cranial nerves II-XII intact. Normal speech. CBCD WBC 4.3 K/mm3 (4.0-10.0) 04/08/20 06:45 RBC 3.26 M/mm3 (4.00-5.60) L 04/08/20 06:45 Hgb 9.6 GM/dL (11.7-16.9) L 04/08/20 06:45 Hct 28.9 % (35.4-49) L 04/08/20 06:45 MCV 88.7 fl (80-96) 04/08/20 06:45 MCHC 33.1 g/dl (32.0-35.9) 04/08/20 06:45 RDW 14.2 % (11.9-15.9) 04/08/20 06:45 Plt Count 159 K/MM3 (134-434) 04/08/20 06:45 MPV 8.2 fl (7.5-11.1) 04/08/20 06:45 CMP Sodium 140 mmol/L (136-145) 04/08/20 06:45 Potassium 4.0 mmol/L (3.5-5.1) 04/08/20 06:45 Chloride 110 mmol/L (98-107) H 04/08/20 06:45 Carbon Dioxide 26 mmol/L (21-32) 04/08/20 06:45 Anion Gap 4 MMOL/L (8-16) L 04/08/20 06:45 BUN 12.8 mg/dL (7-18) 04/08/20 06:45 Creatinine 0.7 mg/dL (0.55-1.3) 04/08/20 06:45 Calcium 7.7 mg/dL (8.5-10.1) L 04/08/20 06:45 Total Bilirubin 0.8 mg/dL (0.2-1) 04/07/20 06:25 AST 34 U/L (15-37) 04/07/20 06:25 ALT 15 U/L (13-61) 04/07/20 06:25 Alkaline Phosphatase 72 U/L (45-117) 04/07/20 06:25 Total Protein 5.4 g/dl (6.4-8.2) L 04/07/20 06:25 Albumin 2.4 g/dl (3.4-5.0) L 04/07/20 06:25 Active Medications Aspirin (Asa -) 81 mg PO DAILY [facility] Last Admin: 04/08/20 09:06 Dose: 81 mg Documented by: Atorvastatin Calcium (Lipitor -) 40 mg PO HS [facility] Last Admin: 04/07/20 22:02 Dose: 40 mg Documented by: Bethanechol Chloride (Urecholine -) 25 mg PO TID [facility] Last Admin: 04/08/20 13:24 Dose: 25 mg Documented by: Heparin Sodium (Porcine) (Heparin -) 5,000 unit SQ TID [facility] Last Admin: 04/08/20 13:24 Dose: 5,000 unit Documented by: Ceftriaxone Sodium 1 gm/ (Dextrose) 50 mls @ 100 mls/hr IVPB DAILY [facility] Last Admin: 04/08/20 09:07 Dose: 100 mls/hr Documented by: Tamsulosin HCl (Flomax -) 0.8 mg PO DAILY@0830 [facility] Last Admin: 04/08/20 09:06 Dose: 0.8 mg Documented by: ASSESSMENT AND PLAN: 79 year old male with history of BPH s/p TURP+chan (after failing TOVx3), s/p inguinal hernia repair (Dr. 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
--- NOTE | 2020-04-08 15:43 | CON.ID ---
Consult Consult Specialty:: infectious disease Referred by:: hospitalist Reason for Consultation:: UTI - History of Present Illness Chief Complaint: weakness History of Present Illness: 79 yo man admitted from home recent bilateral inguinal hernia repain with mesh, 03/09, he was then admitted 03/14 with acute renal failure, required chan he underwent cysto and TURP 03/18, failed trial of voiding and was discharged home with chan catheter he felt weak and unsteady at home on 04/06 and came to ED chan changed in ED- UA with pyuria asked to see for UTI on ceftriaxone, no fevers - History Source History Provided By: Patient, Medical Record Limitations to Obtaining History: Poor Historian - Past Medical History Renal/: Yes: Renal Failure, BPH - Past Surgical History Past Surgical History: Yes: Cholecystectomy, Hernia Repair (bilateral inguinal herniar repair 02/2020) - Alcohol/Substance Use Hx Alcohol Use: No - Smoking History Smoking history: Never smoked Have you smoked in the past 12 months: No - Social History Usual Living Arrangement: Alone ADL: Independent History of Recent Travel: No Home Medications - Allergies Allergies/Adverse Reactions: Allergies Allergy/AdvReac Type Severity Reaction Status Date / Time No Known Allergies Allergy Verified 04/06/20 12:17 - Home Medications Home Medications: Ambulatory Orders Aspirin [ASA -] 81 mg PO DAILY #30 tab.chew 03/24/20 Bethanechol Chloride [Bethanechol Chloride -] 25 mg PO TID #45 tablet 03/24/20 Tamsulosin HCl [Flomax -] 0.8 mg PO DAILY@0830 #30 cap.er.24h 03/24/20 Family Medical History Family History: Denies Review of Systems - Review of Systems Constitutional: reports: Weakness. denies: Chills, Fever Eyes: reports: No Symptoms HENT: reports: No Symptoms Neck: reports: No Symptoms Cardiovascular: reports: No Symptoms Respiratory: reports: No Symptoms Gastrointestinal: reports: No Symptoms Genitourinary: reports: No Symptoms Physical Exam Vital Signs: Vital Signs Temperature 98.3 F 04/08/20 14:51 Pulse Rate 73 04/08/20 14:51 Respiratory Rate 18 04/08/20 14:51 Blood Pressure 110/67 04/08/20 14:51 O2 Sat by Pulse Oximetry (%) 96 04/08/20 14:51 Constitutional: Yes: Thin Eyes: Yes: Conjunctiva Clear HENT: Yes: Atraumatic, Normocephalic Neck: Yes: Supple Cardiovascular: Yes: Regular Rate and Rhythm Respiratory: Yes: Regular, CTA Bilaterally Gastrointestinal: Yes: Normal Bowel Sounds, Soft ...Rectal Exam: Yes: Deferred Breast(s): Yes: WNL Musculoskeletal: Yes: WNL Extremities: Yes: WNL Edema: No Psychiatric: Yes: Alert Labs: CBC, BMP 04/08/20 06:45 04/08/20 06:45 Microbiology 04/06/20 14:10 Urine - Urine Chan Urine Culture - Preliminary Escherichia Coli Group D Strep Or Entero Coccus Imaging - Results Chest X-ray: Report Reviewed, Image Reviewed Ultrasound: Report Reviewed (no hydronephrosis, enlarged prostate) Problem List - Problems (1) UTI (urinary tract infection) Code(s): N39.0 - URINARY TRACT INFECTION, SITE NOT SPECIFIED (2) Urinary retention due to benign prostatic hyperplasia Code(s): N40.1 - BENIGN PROSTATIC HYPERPLASIA WITH LOWER URINARY TRACT SYMP; R33.8 - OTHER RETENTION OF URINE Assessment/Plan continue ceftriaxone urology f/u
[2020-04-08] MEDS: ATORVASTATIN CA 40 MG TABLET (FP) PO SCH (20:59)
[2020-04-09] MEDS: HEPARIN NA (PORCINE) 5,000 UNITS/ML 1ML VIAL SQ SCH ×3 (05:04→21:56)
[2020-04-09] MEDS: BETHANECHOL CHLORIDE 25 MG TABLET PO SCH ×3 (05:04→21:57)
[2020-04-09 07:35] LABS: HEMATOCRIT 29.7 % (35.4-49); HEMOGLOBIN 9.9 GM/dL (11.7-16.9); MCH 29.6 pg (25.7-33.7); MCHC 33.3 g/dl (32.0-35.9); MEAN CELL VOLUME 88.8 fl (80-96); MEAN PLT VOLUME 8.1 fl (7.5-11.1); PLATELET COUNT 168 K/MM3 (134-434); RBC 3.35 M/mm3 (4.00-5.60); RDW 14.3 % (11.9-15.9); WHITE BLOOD COUNT 4.4 K/mm3 (4.0-10.0)
[2020-04-09 07:59] LABS: BLOOD UREA NITROGEN 12.1 mg/dL (7-18); CALCIUM 7.6 mg/dL (8.5-10.1); CREATININE 0.8 mg/dL (0.55-1.3)
[2020-04-09] MEDS ORDERED: cefTRIAXone SODIUM 1 GM VIAL ONE (08:33)
[2020-04-09] MEDS ORDERED: DEXTROSE 5%-WATER - 50 ML IVPB ONE (08:33)
--- NOTE | 2020-04-09 08:43 | PN ---
Physical Exam: SUBJECTIVE: Patient seen and examined OBJECTIVE: Vital Signs Period Temp Pulse Resp BP Sys/Frias Pulse Ox Last 24 Hr 98.3 F-98.6 F 58-73 18-18 110-140/67-79 95-97 GENERAL: The patient is awake, alert, and fully oriented, in no acute distress. HEAD: Normal with no signs of trauma. EYES: PERRL, extraocular movements intact, sclera anicteric, conjunctiva clear. No ptosis. ENT: Ears normal, nares patent, oropharynx clear without exudates, moist mucous membranes. NECK: Trachea midline, full range of motion, supple. LUNGS: Breath sounds equal, clear to auscultation bilaterally, no wheezes, no crackles, no accessory muscle use. HEART: Regular rate and rhythm, S1, S2 without murmur, rub or gallop. ABDOMEN: Soft, nontender, nondistended, normoactive bowel sounds, no guarding, no rebound, no hepatosplenomegaly, no masses. EXTREMITIES: 2+ pulses, warm, well-perfused, no edema. NEUROLOGICAL: Cranial nerves II through XII grossly intact. Normal speech, gait not observed. PSYCH: Normal mood, normal affect. SKIN: Warm, dry, normal turgor, no rashes or lesions noted Laboratory Results - last 24 hr 04/09/20 04/09/20 06:30 06:30 WBC 4.4 RBC 3.35 L Hgb 9.9 L Hct 29.7 L MCV 88.8 MCH 29.6 MCHC 33.3 RDW 14.3 Plt Count 168 MPV 8.1 Sodium 139 Potassium 4.0 Chloride 107 Carbon Dioxide 29 Anion Gap 3 L BUN 12.1 Creatinine 0.8 Est GFR (CKD-EPI)AfAm 97.10 Est GFR (CKD-EPI)NonAf 83.78 Random Glucose 93 Calcium 7.6 L Phosphorus 3.0 Magnesium 2.0 Active Medications Generic Name Dose Route Start Last Admin Trade Name Freq PRN Reason Stop Dose Admin Aspirin 81 mg 04/07/20 10:00 04/08/20 09:06 Asa - PO 81 mg DAILY ÁLVARO Administration Atorvastatin Calcium 40 mg 04/07/20 22:00 04/08/20 20:59 Lipitor - PO 40 mg HS ÁLVARO Administration Bethanechol Chloride 25 mg 04/07/20 10:00 04/09/20 05:04 Urecholine - PO 25 mg TID ÁLVARO Administration Heparin Sodium (Porcine) 5,000 unit 04/06/20 22:00 04/09/20 05:04 Heparin - SQ 5,000 unit TID ÁLVARO Administration Ceftriaxone Sodium 1 gm/ 50 mls @ 100 mls/hr 04/07/20 10:00 04/08/20 09:07 Dextrose IVPB 100 mls/hr DAILY ÁLVARO Administration Tamsulosin HCl 0.8 mg 04/07/20 10:00 04/08/20 09:06 Flomax - PO 0.8 mg DAILY@0830 ÁLVARO Administration ASSESSMENT/PLAN: 79 year old male with history of BPH s/p TURP+chan (after failing TOVx3), s/p inguinal hernia repair (Dr. 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 - New Patient This patient is new to me today: No - Critical Care Critical Care patient: No - Discharge Referral Referred to [facility] No - Medication Review Med list reviewed for High Risk Meds patients 65 and older: Yes (yes)
[2020-04-09] MEDS: TAMSULOSIN HCL 0.4 MG CAP PO SCH (08:48)
[2020-04-09] MEDS: CEFTRIAXONE 1 GM in DEXTROSE 5%-WATER - 50 ML IVPB SCH (09:02)
[2020-04-09] MEDS: ASPIRIN 81 MG CHEWABLE TABLETS PO SCH (09:02)
[2020-04-09] MEDS: ATORVASTATIN CA 40 MG TABLET (FP) PO SCH (21:57)
[2020-04-10] MEDS: BETHANECHOL CHLORIDE 25 MG TABLET PO SCH ×3 (05:23→22:11)
[2020-04-10] MEDS: HEPARIN NA (PORCINE) 5,000 UNITS/ML 1ML VIAL SQ SCH ×3 (05:23→22:12)
[2020-04-10] MEDS ORDERED: DEXTROSE 5%-WATER - 50 ML IVPB ONE (09:27)
[2020-04-10] MEDS ORDERED: cefTRIAXone SODIUM 1 GM VIAL ONE (09:27)
[2020-04-10] MEDS: CEFTRIAXONE 1 GM in DEXTROSE 5%-WATER - 50 ML IVPB SCH (09:28)
[2020-04-10] MEDS: TAMSULOSIN HCL 0.4 MG CAP PO SCH (09:28)
[2020-04-10] MEDS: ASPIRIN 81 MG CHEWABLE TABLETS PO SCH (09:28)
--- NOTE | 2020-04-10 11:32 | PN ---
Progress Note (short form) - Note Progress Note: failed voiding trial chan replaced Vital Signs Period Temp Pulse Resp BP Sys/Frias Pulse Ox Last 24 Hr 98.2 F-98.5 F 62-85 18-18 120-134/59-80 94-98 cor-rrr llungs clear abd soft,nt ext no edema chan clear urine a/p chan replaced- ?gu procedure this week add amox for enterococcus continue ceftriaxone urinary retention BPH-s/p turp in 03/10 Problem List - Problems (1) UTI (urinary tract infection) Code(s): N39.0 - URINARY TRACT INFECTION, SITE NOT SPECIFIED (2) Urinary retention due to benign prostatic hyperplasia Code(s): N40.1 - BENIGN PROSTATIC HYPERPLASIA WITH LOWER URINARY TRACT SYMP; R33.8 - OTHER RETENTION OF URINE
--- NOTE | 2020-04-10 13:07 | PN ---
Teaching Attending Note Name of Resident: Harinder Al ATTENDING PHYSICIAN STATEMENT I saw and evaluated the patient. I reviewed the resident's note and discussed the case with the resident. I agree with the resident's findings and plan as documented. SUBJECTIVE: pt seen and examined OBJECTIVE: GENERAL: Awake, alert, and fully oriented, in no acute distress. LUNGS: Breath sounds equal, clear to auscultation bilaterally. No wheezes, and no crackles. No accessory muscle use. HEART: Regular rate and rhythm, normal S1 and S2 ABDOMEN: Soft, nontender, not distended MUSCULOSKELETAL: Normal range of motion at all joints. No bony deformities or tenderness. No CVA tenderness. LOWER EXTREMITIES: 2+ pulses, warm, well-perfused. No calf tenderness. No peripheral edema. NEUROLOGICAL: Cranial nerves II-XII intact. Normal speech. CBCD WBC 4.4 K/mm3 (4.0-10.0) 04/09/20 06:30 RBC 3.35 M/mm3 (4.00-5.60) L 04/09/20 06:30 Hgb 9.9 GM/dL (11.7-16.9) L 04/09/20 06:30 Hct 29.7 % (35.4-49) L 04/09/20 06:30 MCV 88.8 fl (80-96) 04/09/20 06:30 MCHC 33.3 g/dl (32.0-35.9) 04/09/20 06:30 RDW 14.3 % (11.9-15.9) 04/09/20 06:30 Plt Count 168 K/MM3 (134-434) 04/09/20 06:30 MPV 8.1 fl (7.5-11.1) 04/09/20 06:30 CMP Sodium 139 mmol/L (136-145) 04/09/20 06:30 Potassium 4.0 mmol/L (3.5-5.1) 04/09/20 06:30 Chloride 107 mmol/L (98-107) 04/09/20 06:30 Carbon Dioxide 29 mmol/L (21-32) 04/09/20 06:30 Anion Gap 3 MMOL/L (8-16) L 04/09/20 06:30 BUN 12.1 mg/dL (7-18) 04/09/20 06:30 Creatinine 0.8 mg/dL (0.55-1.3) 04/09/20 06:30 Calcium 7.6 mg/dL (8.5-10.1) L 04/09/20 06:30 Total Bilirubin 0.8 mg/dL (0.2-1) 04/07/20 06:25 AST 34 U/L (15-37) 04/07/20 06:25 ALT 15 U/L (13-61) 04/07/20 06:25 Alkaline Phosphatase 72 U/L (45-117) 04/07/20 06:25 Total Protein 5.4 g/dl (6.4-8.2) L 04/07/20 06:25 Albumin 2.4 g/dl (3.4-5.0) L 04/07/20 06:25 Last Vital Signs Temp Pulse Resp BP Pulse Ox 98.3 F 85 18 124/69 94 L 04/10/20 10:00 04/10/20 10:00 04/10/20 10:00 04/10/20 10:00 04/10/20 10:00 ASSESSMENT AND PLAN: 79 year old male with history of BPH s/p TURP+chan (after failing TOVx3), s/p inguinal hernia repair (Dr. 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
--- NOTE | 2020-04-10 13:08 | PN ---
Physical Exam: SUBJECTIVE: Patient seen and examined. No acute events overnight. Denies fever, chills, CP, SOB, abdominal pain. OBJECTIVE: Vital Signs Period Temp Pulse Resp BP Sys/Frias Pulse Ox Last 24 Hr 98.2 F-98.5 F 62-85 18-18 120-134/59-80 94-98 GENERAL: Awake, alert, and fully oriented, in no acute distress. HEAD: Normal with no signs of trauma. EYES: Pupils equal, round and reactive to light, extraocular movements intact, sclera anicteric, conjunctiva clear. No lid lag. EARS, NOSE, THROAT: Ears normal, nares patent, oropharynx clear without exudates. Moist mucous membranes. NECK: Normal range of motion, supple without lymphadenopathy, JVD, or masses. LUNGS: Breath sounds equal, clear to auscultation bilaterally. No wheezes, and no crackles. No accessory muscle use. HEART: Regular rate and rhythm, normal S1 and S2 without murmur, rub or gallop. ABDOMEN: Soft, nontender, not distended, normoactive bowel sounds, no guarding, no rebound, no masses. No hepatomegaly or splenomegaly. MUSCULOSKELETAL: Normal range of motion at all joints. No bony deformities or tenderness. No CVA tenderness. UPPER EXTREMITIES: 2+ pulses, warm, well-perfused. No cyanosis. No clubbing. No peripheral edema. LOWER EXTREMITIES: 2+ pulses, warm, well-perfused. No calf tenderness. No peripheral edema. NEUROLOGICAL: Cranial nerves II-XII intact. Normal speech. Normal gait. PSYCHIATRIC: Cooperative. Good eye contact. Appropriate mood and affect. SKIN: Warm, dry, normal turgor, no rashes or lesions noted, normal capillary refill. : Grady present, clear pink tinged urine. Laboratory Results - last 24 hr 04/09/20 11:05 COVID-19 (JEAN) Not detected Active Medications Generic Name Dose Route Start Last Admin Trade Name Freq PRN Reason Stop Dose Admin Amoxicillin 500 mg 04/10/20 14:00 Amoxicillin - PO TID ÁLVARO Aspirin 81 mg 04/07/20 10:00 04/10/20 09:28 Asa - PO 81 mg DAILY ÁLVARO Administration Atorvastatin Calcium 40 mg 04/07/20 22:00 04/09/20 21:57 Lipitor - PO 40 mg HS ÁLVARO Administration Bethanechol Chloride 25 mg 04/07/20 10:00 04/10/20 05:23 Urecholine - PO 25 mg TID ÁLVARO Administration Heparin Sodium (Porcine) 5,000 unit 04/06/20 22:00 04/10/20 05:23 Heparin - SQ 5,000 unit TID ÁLVARO Administration Tamsulosin HCl 0.8 mg 04/07/20 10:00 04/10/20 09:28 Flomax - PO 0.8 mg DAILY@0830 ÁLVARO Administration ASSESSMENT/PLAN: 79yo M with PMHx of BPH on Tamsulosin, from b/l indirect inguinal hernia repair (Sheng Coker, 03/09/2020) presenting with waekness and fatigue, unkempt appearance admitted for UTI. Pt was admitted 03/14 - 03/26 for acute metabolic encephalopathy secondary to urinary obstruction/MAXWELL and failed TOV. #UTI -indwelling Grady on admission, replaced in ED -Being treated empirically with Rocephin, ID added amoxicillin for enterococcus coverage -Failed TOV on 04/09; to be scheduled for suprapubic catheter per urology #Hx of BPH -continue home Flomax/bethanechol -Consulted Dr. Mendoza, urologist -renal and pelvic/bladder US - no hydronephrosis #Hx of chronic infarcts -seen on imaging on last admission; on ASA and statin FEN No standing fluids Monitor electrolytes Reg diet PPx Heparin 5000u TID Visit type - Emergency Visit Emergency Visit: Yes ED Registration Date: 04/06/20 Care time: The patient presented to the Emergency Department on the above date and was hospitalized for further evaluation of their emergent condition. - New Patient This patient is new to me today: No - Critical Care Critical Care patient: No - Medication Review Med list reviewed for High Risk Meds patients 65 and older: Yes ATTENDING PHYSICIAN STATEMENT I saw and evaluated the patient. I reviewed the resident's note and discussed the case with the resident. I agree with the resident's findings and plan as documented. SUBJECTIVE: OBJECTIVE: ASSESSMENT AND PLAN:
--- NOTE | 2020-04-10 14:02 | PN ---
DATE OF VISIT: 04/09/2020 Patient is an 79-year-old male who underwent a TURP 1 month prior, was sent home with Grady to leg bag due to failure to void after 2 tries. The patient is admitted to the hospital for the suprapubic pain, fever and lethargy. His Grady catheter is patent. His urine is clear. He is presently afebrile. He denies any allergies. His white count is 4.3, hemoglobin 9.6 and hematocrit 28.9. BUN is 18 and creatinine 0.7. His urine grew out E. coli. He is on appropriate antibiotics as per Infectious Disease. Will plan to discontinue Grady today and give trial at voiding since the Grady catheter is most likely the source of his recurrent UTIs. Will follow closely. Hamzah [id number]
[2020-04-10] MEDS ORDERED: PT OWN MED DRAWER 7, Y5N ONE (14:09)
[2020-04-10] MEDS: AMOXICILLIN 500 MG CAPSULE (FP) PO SCH ×2 (16:35→22:12)
[2020-04-10] MEDS: ATORVASTATIN CA 40 MG TABLET (FP) PO SCH (22:12)
[2020-04-11] MEDS: AMOXICILLIN 500 MG CAPSULE (FP) PO SCH ×3 (06:41→22:09)
[2020-04-11] MEDS: BETHANECHOL CHLORIDE 25 MG TABLET PO SCH ×3 (06:41→22:09)
[2020-04-11 06:42] LABS: HEMATOCRIT 32.4 % (35.4-49); HEMOGLOBIN 10.8 GM/dL (11.7-16.9); MCH 29.7 pg (25.7-33.7); MCHC 33.4 g/dl (32.0-35.9); MEAN CELL VOLUME 88.8 fl (80-96); MEAN PLT VOLUME 7.9 fl (7.5-11.1); PLATELET COUNT 201 K/MM3 (134-434); RBC 3.64 M/mm3 (4.00-5.60); RDW 14.1 % (11.9-15.9); WHITE BLOOD COUNT 4.5 K/mm3 (4.0-10.0)
[2020-04-11 06:53] LABS: INR 1.1 (0.83-1.09)
[2020-04-11 06:56] LABS: ACTIVATED PTT 30.8 SECONDS (25.2-36.5)
[2020-04-11 08:50] LABS: BLOOD UREA NITROGEN 20.9 mg/dL (7-18); CALCIUM 7.8 mg/dL (8.5-10.1); CREATININE 0.8 mg/dL (0.55-1.3); MAGNESIUM 1.8 mg/dL (1.8-2.4); PHOSPHOROUS 3.6 mg/dL (2.5-4.9); POTASSIUM 4.6 mmol/L (3.5-5.1)
[2020-04-11] MEDS ORDERED: CEFTRIAXONE 1 GM in DEXTROSE 5%-WATER - 50 ML IVPB SCH (10:00)
[2020-04-11] MEDS ORDERED: DEXTROSE 5%-WATER - 50 ML IVPB ONE (10:04)
[2020-04-11] MEDS ORDERED: cefTRIAXone SODIUM 1 GM VIAL ONE (10:04)
[2020-04-11] MEDS ORDERED: PROPOFOL 20 ML ONE (10:08)
[2020-04-11] MEDS ORDERED: SUCCINYLCHOLINE CHLORIDE 200 MG/10 ML SYRINGE ONE (10:09)
[2020-04-11] MEDS ORDERED: MIDAZOLAM HCL 2 MG/2 ML SINGLE DOSE VIAL ONE (10:09)
[2020-04-11] MEDS ORDERED: ceFAZolin SODIUM 1 GM VIAL IVPB ONE (10:40)
[2020-04-11] MEDS ORDERED: BUPIVACAINE HCL/PF 0.5% (5 MG/ML) 30 ML VIAL IJ ONE (11:20)
[2020-04-11] MEDS ORDERED: ePHEDrine SULFATE 50 MG/1 ML AMPULE ONE (11:21)
[2020-04-11] MEDS ORDERED: oxyCODONE HCL 5 MG TABLET PO PRN (11:29)
--- NOTE | 2020-04-11 11:34 | OP ---
Operative Note - Note: Operative Date: 04/11/20 Pre-Operative Diagnosis: Urinary Retention, Neurogenic bladder Operation: Cysto, Suprapubic Cystostomy Findings: Urinary Retention Neurogenic Bladder Implants: 26 F Folsy as SP Tube Post-Operative Diagnosis: Same as Pre-op Surgeon: Laura Honeycutt Anesthesia: General
--- NOTE | 2020-04-11 11:55 | OP ---
DATE OF OPERATION: 04/11/2020 SURGEON: Laura Honeycutt MD ANESTHESIA: General. PREOPERATIVE DIAGNOSIS: Urinary retention and neurogenic bladder. POSTOPERATIVE DIAGNOSIS: Urinary retention and neurogenic bladder. PROCEDURE: Cystoscopy and suprapubic cystostomy. FINDINGS: Urethra normal. Bladder neck open. Status post TUVP. Bladder showed severe trabeculation and cellules and saccule formation. PROCEDURE: Patient placed in the lithotomy position, was prepped and draped in the usual manner. A 21-scope was used. Cystoscopy performed and findings were noted above. Then the bladder was filled. The patient was then prepped and draped in the usual manner. A suprapubic incision was made just above the symphysis pubis and fascia was incised along the line of the incision. The muscle was split in the midline and the bladder was felt distended. A stab incision was made on the bladder and the bladder was drained. A 26-Grady was used as a suprapubic tube and the balloon was brought up to 15 mL. It was seen to be in good position and the wound was closed. The fascia was attached to the bladder wall. Marcaine was given along the edges of the wound and skin was approximated using the harjeet. Silk 2-0 was used to anchor the suprapubic tube. Patient tolerated the procedure well, left the operating room in a satisfactory condition. LAURA HONEYCUTT M.D. [id number]
--- NOTE | 2020-04-11 13:34 | PN ---
Teaching Attending Note Name of Resident: Harinder Al ATTENDING PHYSICIAN STATEMENT I saw and evaluated the patient. I reviewed the resident's note and discussed the case with the resident. I agree with the resident's findings and plan as documented. SUBJECTIVE: pt seen and examined, prior to going to [place] OBJECTIVE: Last Vital Signs Temp Pulse Resp BP Pulse Ox 97.6 F 64 16 117/69 99 04/11/20 12:53 04/11/20 12:53 04/11/20 12:53 04/11/20 12:53 04/11/20 12:53 GENERAL: Awake, alert, and fully oriented, in no acute distress. LUNGS: Breath sounds equal, clear to auscultation bilaterally. No wheezes, and no crackles. No accessory muscle use. HEART: Regular rate and rhythm, normal S1 and S2 ABDOMEN: Soft, nontender, not distended MUSCULOSKELETAL: Normal range of motion at all joints. No bony deformities or tenderness. No CVA tenderness. LOWER EXTREMITIES: 2+ pulses, warm, well-perfused. No calf tenderness. No peripheral edema. NEUROLOGICAL: Cranial nerves II-XII intact. Normal speech. CBCD WBC 4.5 K/mm3 (4.0-10.0) 04/11/20 06:03 RBC 3.64 M/mm3 (4.00-5.60) L 04/11/20 06:03 Hgb 10.8 GM/dL (11.7-16.9) L 04/11/20 06:03 Hct 32.4 % (35.4-49) L 04/11/20 06:03 MCV 88.8 fl (80-96) 04/11/20 06:03 MCHC 33.4 g/dl (32.0-35.9) 04/11/20 06:03 RDW 14.1 % (11.9-15.9) 04/11/20 06:03 Plt Count 201 K/MM3 (134-434) 04/11/20 06:03 MPV 7.9 fl (7.5-11.1) 04/11/20 06:03 CMP Sodium 142 mmol/L (136-145) 04/11/20 06:03 Potassium 4.6 mmol/L (3.5-5.1) 04/11/20 06:03 Chloride 108 mmol/L (98-107) H 04/11/20 06:03 Carbon Dioxide 27 mmol/L (21-32) 04/11/20 06:03 Anion Gap 8 MMOL/L (8-16) 04/11/20 06:03 BUN 20.9 mg/dL (7-18) H 04/11/20 06:03 Creatinine 0.8 mg/dL (0.55-1.3) 04/11/20 06:03 Calcium 7.8 mg/dL (8.5-10.1) L 04/11/20 06:03 Total Bilirubin 0.8 mg/dL (0.2-1) 04/07/20 06:25 AST 34 U/L (15-37) 04/07/20 06:25 ALT 15 U/L (13-61) 04/07/20 06:25 Alkaline Phosphatase 72 U/L (45-117) 04/07/20 06:25 Total Protein 5.4 g/dl (6.4-8.2) L 04/07/20 06:25 Albumin 2.4 g/dl (3.4-5.0) L 04/07/20 06:25 Active Medications Amoxicillin (Amoxicillin -) 500 mg PO TID ÁLVARO Atorvastatin Calcium (Lipitor -) 40 mg PO HS ÁLVARO Bethanechol Chloride (Urecholine -) 25 mg PO TID ÁLVARO Ceftriaxone Sodium 1 gm/ (Dextrose) 50 mls @ 200 mls/hr IVPB DAILY ÁLVARO; Protocol Oxycodone HCl (Roxicodone -) 5 mg PO Q30M PRN PRN Reason: PAIN Tamsulosin HCl (Flomax -) 0.8 mg PO DAILY@0830 ÁLVARO ASSESSMENT AND PLAN: 79 year old man with history of BPH s/p TURP+chan (after failing TOVx3), s/p inguinal hernia repair (Dr. 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
--- NOTE | 2020-04-11 13:42 | PN ---
Progress Note, Physician History of Present Illness: Pt seen and examined at bedside. He is s/p cysto. - Current Medication List Current Medications: Active Medications Amoxicillin (Amoxicillin -) 500 mg PO TID [facility] Atorvastatin Calcium (Lipitor -) 40 mg PO HS [facility] Bethanechol Chloride (Urecholine -) 25 mg PO TID [facility] Ceftriaxone Sodium 1 gm/ (Dextrose) 50 mls @ 200 mls/hr IVPB DAILY [facility]; Protocol Oxycodone HCl (Roxicodone -) 5 mg PO Q30M PRN PRN Reason: PAIN Tamsulosin HCl (Flomax -) 0.8 mg PO DAILY@0830 [facility] - Objective Vital Signs: Vital Signs Temperature 97.6 F 04/11/20 12:53 Pulse Rate 64 04/11/20 12:53 Respiratory Rate 16 04/11/20 12:53 Blood Pressure 117/69 04/11/20 12:53 O2 Sat by Pulse Oximetry (%) 99 04/11/20 12:53 Constitutional: Yes: Calm Eyes: Yes: Conjunctiva Clear HENT: Yes: Atraumatic Neck: Yes: Supple Cardiovascular: Yes: S1, S2 Respiratory: Yes: CTA Bilaterally Gastrointestinal: Yes: Soft Genitourinary: Yes: Chan Present, Hematuria Musculoskeletal: Yes: WNL Edema: No Neurological: Yes: Oriented Psychiatric: Yes: Oriented Labs: CBC, BMP 04/11/20 06:03 04/11/20 06:03 INR, PTT INR 1.10 (0.83-1.09) H 04/11/20 06:03 Problem List - Problems (1) UTI (urinary tract infection) Code(s): N39.0 - URINARY TRACT INFECTION, SITE NOT SPECIFIED Assessment/Plan Current Medications Generic Name Dose Route Start Last Admin Trade Name Freq PRN Reason Stop Dose Admin Amoxicillin 500 mg 04/11/20 14:00 Amoxicillin - PO TID [facility] Atorvastatin Calcium 40 mg 04/11/20 22:00 Lipitor - PO HS [facility] Bethanechol Chloride 25 mg 04/11/20 14:00 Urecholine - PO TID [facility] Ceftriaxone Sodium 1 gm/ 50 mls @ 200 mls/hr 04/12/20 10:00 Dextrose IVPB DAILY [facility] Protocol Oxycodone HCl 5 mg 04/11/20 11:29 Roxicodone - PO Q30M PRN PAIN Tamsulosin HCl 0.8 mg 04/12/20 08:30 Flomax - PO DAILY@0830 ÁLVARO Impression 1. azotemia 2. s/p hernia repair 3. hx hydronephrosis 4. urinary obstruction requiring chronic chan 5. UTI 6. hematuria, mild Plan - cont to monitor renal function - s/p cysto and suprapubic - monitor urine output and color - cont abx per medical team - outpt follow up - renal function is stable
[2020-04-11] MEDS: TAMSULOSIN HCL 0.4 MG CAP PO SCH (13:49)
--- NOTE | 2020-04-11 15:04 | PN ---
Physical Exam: SUBJECTIVE: Patient seen and examined. No acute complaints. OBJECTIVE: Vital Signs Period Temp Pulse Resp BP Sys/Frias Pulse Ox Last 24 Hr 97.5 F-98.7 F 62-82 11-18 114-133/66-82 95-100 GENERAL: Awake, alert, and fully oriented, in no acute distress. HEAD: Normal with no signs of trauma. EYES: Pupils equal, round and reactive to light, extraocular movements intact, sclera anicteric, conjunctiva clear. No lid lag. EARS, NOSE, THROAT: Ears normal, nares patent, oropharynx clear without exudates . Moist mucous membranes. NECK: Normal range of motion, supple without lymphadenopathy, JVD, or masses. LUNGS: Breath sounds equal, clear to auscultation bilaterally. No wheezes, and no crackles. No accessory muscle use. HEART: Regular rate and rhythm, normal S1 and S2 without murmur, rub or gallop. ABDOMEN: Soft, nontender, not distended, normoactive bowel sounds, no guarding, no rebound, no masses. No hepatomegaly or splenomegaly. MUSCULOSKELETAL: Normal range of motion at all joints. No bony deformities or tenderness. No CVA tenderness. UPPER EXTREMITIES: 2+ pulses, warm, well-perfused. No cyanosis. No clubbing. No peripheral edema. LOWER EXTREMITIES: 2+ pulses, warm, well-perfused. No calf tenderness. No peripheral edema. NEUROLOGICAL: Cranial nerves II-XII intact. Normal speech. Normal gait. PSYCHIATRIC: Cooperative. Good eye contact. Appropriate mood and affect. SKIN: Warm, dry, normal turgor, no rashes or lesions noted, normal capillary refill. : Grady present, clear pink tinged urine. Laboratory Results - last 24 hr 04/11/20 04/11/20 04/11/20 06:03 06:03 06:03 WBC 4.5 RBC 3.64 L Hgb 10.8 L Hct 32.4 L MCV 88.8 MCH 29.7 MCHC 33.4 RDW 14.1 Plt Count 201 MPV 7.9 PT with INR 13.00 INR 1.10 H PTT (Actin FS) 30.8 Sodium 142 Potassium 4.6 Chloride 108 H Carbon Dioxide 27 Anion Gap 8 BUN 20.9 H Creatinine 0.8 Est GFR (CKD-EPI)AfAm 97.10 Est GFR (CKD-EPI)NonAf 83.78 Random Glucose 90 Calcium 7.8 L Phosphorus 3.6 Magnesium 1.8 Active Medications Generic Name Dose Route Start Last Admin Trade Name Freq PRN Reason Stop Dose Admin Amoxicillin 500 mg 04/11/20 14:00 04/11/20 14:48 Amoxicillin - PO 500 mg TID ÁLVARO Administration Atorvastatin Calcium 40 mg 04/11/20 22:00 Lipitor - PO HS ÁLVARO Bethanechol Chloride 25 mg 04/11/20 14:00 04/11/20 14:48 Urecholine - PO 25 mg TID ÁLVARO Administration Ceftriaxone Sodium 1 gm/ 50 mls @ 200 mls/hr 04/12/20 10:00 Dextrose IVPB DAILY [facility] Protocol Oxycodone HCl 5 mg 04/11/20 11:29 Roxicodone - PO Q30M PRN PAIN Tamsulosin HCl 0.8 mg 04/12/20 08:30 Flomax - PO DAILY@0830 [facility] ASSESSMENT/PLAN: 79yo M with PMHx of BPH on Tamsulosin, from b/l indirect inguinal hernia repair ([facility], 03/09/2020) presenting with waekness and fatigue, unkempt appearance admitted for UTI. Pt was admitted 03/14 - 03/26 for acute metabolic encephalopathy secondary to urinary obstruction/MAXWELL and failed TOV. #UTI -indwelling Grady on admission, replaced in ED -Rocephin and enterococus -Failed TOV on 04/09 -s/p cystoscopy, suprapubic cystostomy today -nephro, ID and urology consults appreciated #Hx of BPH -continue home Flomax/bethanechol #Hx of chronic infarcts -cont ASA and statin FEN No standing fluids Monitor electrolytes Reg diet PPx Heparin 5000u TID Visit type - Emergency Visit Emergency Visit: Yes ED Registration Date: 04/06/20 Care time: The patient presented to the Emergency Department on the above date and was hospitalized for further evaluation of their emergent condition. - New Patient This patient is new to me today: No - Critical Care Critical Care patient: No - Medication Review Med list reviewed for High Risk Meds patients 65 and older: Yes ATTENDING PHYSICIAN STATEMENT I saw and evaluated the patient. I reviewed the resident's note and discussed the case with the resident. I agree with the resident's findings and plan as documented. SUBJECTIVE: OBJECTIVE: ASSESSMENT AND PLAN:
[2020-04-11] MEDS ORDERED: PT OWN MED DRAWER 7, Y5N ONE (22:02)
[2020-04-11] MEDS: ATORVASTATIN CA 40 MG TABLET (FP) PO SCH (22:09)
[2020-04-12] MEDS ORDERED: PT OWN MED DRAWER 7, Y5N ONE (05:28)
[2020-04-12] MEDS: AMOXICILLIN 500 MG CAPSULE (FP) PO SCH ×2 (05:29→14:26)
[2020-04-12] MEDS: BETHANECHOL CHLORIDE 25 MG TABLET PO SCH ×3 (05:31→21:54)
[2020-04-12 07:27] LABS: HEMATOCRIT 31.2 % (35.4-49); HEMOGLOBIN 10.5 GM/dL (11.7-16.9); MCH 29.9 pg (25.7-33.7); MCHC 33.5 g/dl (32.0-35.9); MEAN CELL VOLUME 89.2 fl (80-96); MEAN PLT VOLUME 8.1 fl (7.5-11.1); PLATELET COUNT 196 K/MM3 (134-434); RDW 14.1 % (11.9-15.9); WHITE BLOOD COUNT 7.1 K/mm3 (4.0-10.0)
[2020-04-12 07:51] LABS: BLOOD UREA NITROGEN 18.2 mg/dL (7-18); CALCIUM 7.5 mg/dL (8.5-10.1); CREATININE 0.7 mg/dL (0.55-1.3); MAGNESIUM 1.8 mg/dL (1.8-2.4); PHOSPHOROUS 3.6 mg/dL (2.5-4.9); POTASSIUM 4.4 mmol/L (3.5-5.1)
[2020-04-12] MEDS ORDERED: cefTRIAXone SODIUM 1 GM VIAL ONE (08:44)
[2020-04-12] MEDS ORDERED: DEXTROSE 5%-WATER - 50 ML IVPB ONE (08:45)
[2020-04-12] MEDS: TAMSULOSIN HCL 0.4 MG CAP PO SCH (09:49)
[2020-04-12] MEDS ORDERED: CEFTRIAXONE 1 GM in DEXTROSE 5%-WATER - 50 ML IVPB SCH (10:00)
--- NOTE | 2020-04-12 13:53 | PN ---
Progress Note, Physician History of Present Illness: Pt seen and examined at bedside. He is awake and alert. He feels edema is improved. - Current Medication List Current Medications: Active Medications Amoxicillin (Amoxicillin -) 500 mg PO TID [facility] Last Admin: 04/12/20 05:29 Dose: 500 mg Documented by: Atorvastatin Calcium (Lipitor -) 40 mg PO HS [facility] Last Admin: 04/11/20 22:09 Dose: 40 mg Documented by: Bethanechol Chloride (Urecholine -) 25 mg PO TID [facility] Last Admin: 04/12/20 05:31 Dose: 25 mg Documented by: Ceftriaxone Sodium 1 gm/ (Dextrose) 50 mls @ 200 mls/hr IVPB DAILY [facility]; P rotocol Last Admin: 04/12/20 09:49 Dose: 200 mls/hr Documented by: Oxycodone HCl (Roxicodone -) 5 mg PO Q30M PRN PRN Reason: PAIN Last Admin: 04/11/20 20:49 Dose: 5 mg Documented by: Tamsulosin HCl (Flomax -) 0.8 mg PO DAILY@0830 [facility] Last Admin: 04/12/20 09:49 Dose: 0.8 mg Documented by: - Objective Vital Signs: Vital Signs Temperature 97.4 F L 04/12/20 13:48 Pulse Rate 85 04/12/20 13:48 Respiratory Rate 20 04/12/20 13:48 Blood Pressure 112/68 04/12/20 13:48 O2 Sat by Pulse Oximetry (%) 95 04/12/20 13:48 Constitutional: Yes: Calm Eyes: Yes: Conjunctiva Clear HENT: Yes: Atraumatic Cardiovascular: Yes: S1, S2 Respiratory: Yes: CTA Bilaterally Gastrointestinal: Yes: Soft Genitourinary: Yes: Other (suprapubic cath) Musculoskeletal: Yes: WNL Edema: LLE: Trace, RLE: Trace Neurological: Yes: Oriented Psychiatric: Yes: Oriented Labs: CBC, BMP 04/12/20 06:33 04/12/20 06:33 INR, PTT INR 1.10 (0.83-1.09) H 04/11/20 06:03 Problem List - Problems (1) UTI (urinary tract infection) Code(s): N39.0 - URINARY TRACT INFECTION, SITE NOT SPECIFIED Assessment/Plan Current Medications Generic Name Dose Route Start Last Admin Trade Name Freq PRN Reason Stop Dose Admin Amoxicillin 500 mg 04/11/20 14:00 04/12/20 05:29 Amoxicillin - PO 500 mg TID ÁLVARO Administration Atorvastatin Calcium 40 mg 04/11/20 22:00 04/11/20 22:09 Lipitor - PO 40 mg HS ÁLVARO Administration Bethanechol Chloride 25 mg 04/11/20 14:00 04/12/20 05:31 Urecholine - PO 25 mg TID ÁLVARO Administration Ceftriaxone Sodium 1 gm/ 50 mls @ 200 mls/hr 04/12/20 10:00 04/12/20 09:49 Dextrose IVPB 200 mls/hr DAILY ÁLVARO Administration Protocol Oxycodone HCl 5 mg 04/11/20 11:29 04/11/20 20:49 Roxicodone - PO 5 mg Q30M PRN Administration PAIN Tamsulosin HCl 0.8 mg 04/12/20 08:30 04/12/20 09:49 Flomax - PO 0.8 mg DAILY@0830 ÁLVARO Administration Impression 1. azotemia 2. s/p hernia repair 3. hx hydronephrosis 4. urinary obstruction requiring chronic chan 5. UTI 6. hematuria, mild Plan - pt with suprapubic in place - lower ext edema improved - will hold off lasix today - pt tolerating diet - no need for fluids
--- NOTE | 2020-04-12 14:29 | PN ---
Progress Note (short form) - Note Progress Note: failed voiding trial s/p SPT yesterday doing well Vital Signs Period Temp Pulse Resp BP Sys/Frias Pulse Ox Last 24 Hr 97.4 F-98.6 F 77-85 18-20 112-120/62-78 94-95 cor-rrr lungs clear abd soft,+SPT with dressing ext no edema CBC, BMP 04/12/20 06:33 04/12/20 06:33 Microbiology 04/06/20 14:10 Urine - Urine Grady Urine Culture - Final Escherichia Coli Enterococcus Faecalis a/p uti- s/p 7 days antibiotics will d/c s/p SPT yesterday- per urology bph s/p turp 03/10 Problem List - Problems (1) UTI (urinary tract infection) Code(s): N39.0 - URINARY TRACT INFECTION, SITE NOT SPECIFIED (2) Urinary retention due to benign prostatic hyperplasia Code(s): N40.1 - BENIGN PROSTATIC HYPERPLASIA WITH LOWER URINARY TRACT SYMP; R33.8 - OTHER RETENTION OF URINE
--- NOTE | 2020-04-12 16:25 | DS ---
Physical Exam: SUBJECTIVE: Patient seen and examined OBJECTIVE: Vital Signs Period Temp Pulse Resp BP Sys/Frias Pulse Ox Last 24 Hr 97.4 F-98.6 F 77-85 18-20 112-120/62-78 94-95 PHYSICAL EXAM GENERAL: The patient is awake, alert, and fully oriented, in no acute distress. HEAD: Normal with no signs of trauma. EYES: PERRL, extraocular movements intact, sclera anicteric, conjunctiva clear. ENT: Ears normal, nares patent, oropharynx clear without exudates, moist mucous membranes. NECK: Trachea midline, full range of motion, supple. LUNGS: Breath sounds equal, clear to auscultation bilaterally, no wheezes, no crackles, no accessory muscle use. HEART: Regular rate and rhythm, S1, S2 without murmur, rub or gallop. ABDOMEN: Soft, nontender, nondistended, normoactive bowel sounds, no guarding, no rebound, no hepatosplenomegaly, no masses. EXTREMITIES: 2+ pulses, warm, well-perfused, no edema. NEUROLOGICAL: Cranial nerves II through XII grossly intact. Normal speech, gait not observed. PSYCH: Normal mood, normal affect. SKIN: Warm, dry, normal turgor, no rashes or lesions noted. LABS Laboratory Results - last 24 hr 04/12/20 04/12/20 06:33 06:33 WBC 7.1 RBC 3.50 L Hgb 10.5 L Hct 31.2 L MCV 89.2 MCH 29.9 MCHC 33.5 RDW 14.1 Plt Count 196 MPV 8.1 Sodium 137 Potassium 4.4 Chloride 104 Carbon Dioxide 29 Anion Gap 4 L BUN 18.2 H Creatinine 0.7 Est GFR (CKD-EPI)AfAm 102.58 Est GFR (CKD-EPI)NonAf 88.50 Random Glucose 93 Calcium 7.5 L Phosphorus 3.6 Magnesium 1.8 HOSPITAL COURSE: Date of Admission:04/06/20 Date of Discharge: 04/12/20 Minutes to complete discharge: 36 Discharge Summary Problems reviewed: Yes Reason For Visit: URINARY TRACT INFECTION Current Active Problems UTI (urinary tract infection) (Acute) Urinary retention due to benign prostatic hyperplasia (Acute) Condition: Improved - Instructions Diet, Activity, Other Instructions: You came to the hospital because you were fatigued. You recently left the hospital with a Grady catheter which was to be followed up with the urologist, Dr. Mendoza. You were found to have an infection related to your catheter. You had your catheter removed in an attempt to urinate, however you were unable to do so. You then had a suprapubic catheter placed, directly into your bladder, which will be in permanently. You weer also treated with antibiotics. Please START taking Lipitor 40mg once nightly. Please resume all other home medications as prescribed. Please follow up with your primary care physician, Dr. Cha, within 1 week for overall health management. Please follow up with your urologist, Dr. Mendoza, within 1 week for follow up on your suprapubic catheter. Please follow up with your senior sales assistant, Dr. Kellogg, within 2 weeks. If you have any new, worsening or concerning symptoms please return to the ED or call 911. Referrals: Marcie Cha [Other Staff,non-medical] - 2 Weeks Key Kellogg MD [Staff Physician] - 2 Weeks Linda Mendoza MD [Staff Physician] - 1 Week Disposition: HOME - Home Medications Comprehensive Discharge Medication List: Ambulatory Orders Aspirin [ASA -] 81 mg PO DAILY #30 tab.chew 03/24/20 Bethanechol Chloride [Bethanechol Chloride -] 25 mg PO TID #45 tablet 03/24/20 Tamsulosin HCl [Flomax -] 0.8 mg PO DAILY@0830 #30 cap.er.24h 03/24/20 Atorvastatin Ca [Lipitor] 40 mg PO HS #30 tablet 04/12/20 - Discharge Referral Referred to [id number] No ATTENDING PHYSICIAN STATEMENT I saw and evaluated the patient. I reviewed the resident's note and discussed the case with the resident. I agree with the resident's findings and plan as documented. SUBJECTIVE: OBJECTIVE: ASSESSMENT AND PLAN:
--- NOTE | 2020-04-12 18:27 | PN ---
Teaching Attending Note Name of Resident: Harinder Al ATTENDING PHYSICIAN STATEMENT I saw and evaluated the patient. I reviewed the resident's note and discussed the case with the resident. I agree with the resident's findings and plan as documented. SUBJECTIVE: Feeling well, no complaints. Ambulating in the hallway with walker. OBJECTIVE: Afebrile, Hemodynamically Stable. Last Vital Signs Temp Pulse Resp BP Pulse Ox 97.4 F L 85 20 112/68 95 04/12/20 13:48 04/12/20 13:48 04/12/20 13:48 04/12/20 13:48 04/12/20 13:48 HEENT - Atraumatic, Normocephalic. Heart - S1, S2, RRR Lungs - clear to auscultation Abdomen - Soft, mild supra-pubic tenderness at suprapubic catheter site. Supra- pubic catheter in situ - . Bowel Sounds normal. Extremities - no calf tenderness. Laboratory Results - last 24 hr 04/12/20 04/12/20 06:33 06:33 WBC 7.1 RBC 3.50 L Hgb 10.5 L Hct 31.2 L MCV 89.2 MCH 29.9 MCHC 33.5 RDW 14.1 Plt Count 196 MPV 8.1 Sodium 137 Potassium 4.4 Chloride 104 Carbon Dioxide 29 Anion Gap 4 L BUN 18.2 H Creatinine 0.7 Est GFR (CKD-EPI)AfAm 102.58 Est GFR (CKD-EPI)NonAf 88.50 Random Glucose 93 Calcium 7.5 L Phosphorus 3.6 Magnesium 1.8 Current Medications Generic Name Dose Route Start Last Admin Trade Name Scottq PRN Reason Stop Dose Admin Atorvastatin Calcium 40 mg 04/11/20 22:00 04/11/20 22:09 Lipitor - PO 40 mg HS ÁLVARO Administration Bethanechol Chloride 25 mg 04/11/20 14:00 04/12/20 14:26 Urecholine - PO 25 mg TID ÁLVARO Administration Oxycodone HCl 5 mg 04/11/20 11:29 04/11/20 20:49 Roxicodone - PO 5 mg Q30M PRN Administration PAIN Tamsulosin HCl 0.8 mg 04/12/20 08:30 04/12/20 09:49 Flomax - PO 0.8 mg DAILY@0830 ÁLVRAO Administration Home Medications Medication Instructions Recorded Aspirin [ASA -] 81 mg PO DAILY #30 tab.chew 03/24/20 Bethanechol Chloride [Bethanechol 25 mg PO TID #45 tablet 03/24/20 Chloride -] Tamsulosin HCl [Flomax -] 0.8 mg PO DAILY@0830 #30 cap.er.24h 03/24/20 Atorvastatin Ca [Lipitor] 40 mg PO HS #30 tablet 04/12/20 ASSESSMENT AND PLAN: 79 year old male with history of BPH s/p TURP/Chan (after failing TOVx3), s/p inguinal hernia repair (Dr. Sheng Coker, 03/09/2020), brought to ED after missing out on outpatient follow up with Urology. Recent admission for Acute Metabolic Encephalopathy secondary to Uremia/Dehydration with MAXWELL and obstructive Uropathy. 1. Acute UTI in setting of indwelling chan for Neurogenic Bladder s/p TURP/Chan (due to failing TOV) Renal US - large prostate, normal kidneys. POD 1 s/p Cystosopy and Suprapubic Cystostomy Continue Tamsulosin 0.8 and Bethanecol Urine Cx positive for Ecoli and Enterococcus Completed Rocephin/Amoxicillin - no further Abx required as per ID PT Urology follow up on discharge 2. 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 3. Cerebrovascular Disease - chronic infarcts on CT Head/MRI Brain - started on Aspirin/Statin on last admission. 4. RML opacity on CT, likely atelectasis, no infective symptoms - recommend incentive spirometer and out-patient follow up with repeat CT and Pulmonary referral on discharge. DVT Px - SCDs. Heparin held due to mild hematuria via suprapubic catheter.
[2020-04-12] MEDS: ATORVASTATIN CA 40 MG TABLET (FP) PO SCH (21:54)
[2020-04-13] MEDS ORDERED: PT OWN MED DRAWER 7, Y5N ONE ×3 (06:41→14:03)
[2020-04-13] MEDS: BETHANECHOL CHLORIDE 25 MG TABLET PO SCH ×2 (06:43→14:07)
[2020-04-13 08:23] LABS: HEMATOCRIT 32.4 % (35.4-49); MCH 30.2 pg (25.7-33.7); MCHC 33.9 g/dl (32.0-35.9); MEAN CELL VOLUME 89.2 fl (80-96); PLATELET COUNT 195 K/MM3 (134-434); RBC 3.63 M/mm3 (4.00-5.60); RDW 14.4 % (11.9-15.9); WHITE BLOOD COUNT 5.3 K/mm3 (4.0-10.0)
[2020-04-13 08:45] LABS: BLOOD UREA NITROGEN 15.5 mg/dL (7-18); CALCIUM 8.4 mg/dL (8.5-10.1); CREATININE 0.6 mg/dL (0.55-1.3); PHOSPHOROUS 3.5 mg/dL (2.5-4.9); POTASSIUM 4.2 mmol/L (3.5-5.1)
[2020-04-13] MEDS: TAMSULOSIN HCL 0.4 MG CAP PO SCH (09:08)
[2020-04-13] MEDS ORDERED: ASPIRIN 81 MG CHEWABLE TABLETS PO SCH (10:00)
--- NOTE | 2020-04-13 13:17 | PN ---
Progress Note, Physician History of Present Illness: Pt seen and examined. He denies shortness of breath. Feels edema is improved. - Current Medication List Current Medications: Active Medications Aspirin (Asa -) 81 mg PO DAILY [facility] Last Admin: 04/13/20 09:08 Dose: 81 mg Documented by: Atorvastatin Calcium (Lipitor -) 40 mg PO HS [facility] Last Admin: 04/12/20 21:54 Dose: 40 mg Documented by: Bethanechol Chloride (Urecholine -) 25 mg PO TID [facility] Last Admin: 04/13/20 06:43 Dose: 25 mg Documented by: Oxycodone HCl (Roxicodone -) 5 mg PO Q30M PRN PRN Reason: PAIN Last Admin: 04/11/20 20:49 Dose: 5 mg Documented by: Tamsulosin HCl (Flomax -) 0.8 mg PO DAILY@0830 [facility] Last Admin: 04/13/20 09:08 Dose: 0.8 mg Documented by: - Objective Vital Signs: Vital Signs Temperature 97.9 F 04/13/20 11:00 Pulse Rate 79 04/13/20 11:00 Respiratory Rate 18 04/13/20 11:00 Blood Pressure 133/84 04/13/20 11:00 O2 Sat by Pulse Oximetry (%) 98 04/13/20 11:00 Constitutional: Yes: Calm Eyes: Yes: Conjunctiva Clear HENT: Yes: Atraumatic Neck: Yes: Supple Cardiovascular: Yes: S1, S2 Respiratory: Yes: CTA Bilaterally Gastrointestinal: Yes: Soft Genitourinary: Yes: Other (suprapubic cath) Musculoskeletal: Yes: WNL Edema: No Neurological: Yes: Oriented Psychiatric: Yes: Oriented Labs: CBC, BMP 04/13/20 07:10 04/13/20 07:10 INR, PTT INR 1.10 (0.83-1.09) H 04/11/20 06:03 Problem List - Problems (1) UTI (urinary tract infection) Code(s): N39.0 - URINARY TRACT INFECTION, SITE NOT SPECIFIED Assessment/Plan Current Medications Generic Name Dose Route Start Last Admin Trade Name Freq PRN Reason Stop Dose Admin Aspirin 81 mg 04/13/20 10:00 04/13/20 09:08 Asa - PO 81 mg DAILY [facility] Administration Atorvastatin Calcium 40 mg 04/11/20 22:00 04/12/20 21:54 Lipitor - PO 40 mg HS ÁLVARO Administration Bethanechol Chloride 25 mg 04/11/20 14:00 04/13/20 06:43 Urecholine - PO 25 mg TID ÁLVARO Administration Oxycodone HCl 5 mg 04/11/20 11:29 04/11/20 20:49 Roxicodone - PO 5 mg Q30M PRN Administration PAIN Tamsulosin HCl 0.8 mg 04/12/20 08:30 04/13/20 09:08 Flomax - PO 0.8 mg DAILY@0830 ÁLVARO Administration Impression 1. azotemia 2. s/p hernia repair 3. hx hydronephrosis 4. urinary obstruction requiring chronic chan 5. UTI 6. hematuria, mild Plan - urine is clear - lytes are stable - edema is resolved - can follow as outpt as needed
[2020-04-13 13:52] VITALS: BP 141/72; PULSE 103; TEMP 97.5
--- NOTE | 2020-04-13 15:01 | PN ---
Teaching Attending Note Name of Resident: Harinder Al ATTENDING PHYSICIAN STATEMENT I saw and evaluated the patient. I reviewed the resident's note and discussed the case with the resident. I agree with the resident's findings and plan as documented. SUBJECTIVE: Feeling well, no complaints. OBJECTIVE: Afebrile, Hemodynamically Stable. Last Vital Signs Temp Pulse Resp BP Pulse Ox 97.5 F L 103 H 20 141/72 97 04/13/20 13:49 04/13/20 13:49 04/13/20 13:49 04/13/20 13:49 04/13/20 13:49 Heart - S1, S2, RRR Lungs - clear to auscultation Abdomen - Soft, mild supra-pubic tenderness at suprapubic catheter site. Supra- pubic catheter in situ -urine clear . Bowel Sounds normal. Extremities - no calf tenderness. Laboratory Results - last 24 hr 04/13/20 04/13/20 07:10 07:10 WBC 5.3 RBC 3.63 L Hgb 11.0 L Hct 32.4 L MCV 89.2 MCH 30.2 MCHC 33.9 RDW 14.4 Plt Count 195 MPV 8.0 Sodium 139 Potassium 4.2 Chloride 105 Carbon Dioxide 29 Anion Gap 5 L BUN 15.5 Creatinine 0.6 Est GFR (CKD-EPI)AfAm 109.29 Est GFR (CKD-EPI)NonAf 94.29 Random Glucose 98 Calcium 8.4 L Phosphorus 3.5 Magnesium 2.0 Current Medications Generic Name Dose Route Start Last Admin Trade Name Freq PRN Reason Stop Dose Admin Aspirin 81 mg 04/13/20 10:00 04/13/20 09:08 Asa - PO 81 mg DAILY ÁLVARO Administration Atorvastatin Calcium 40 mg 04/11/20 22:00 04/12/20 21:54 Lipitor - PO 40 mg HS ÁLVARO Administration Bethanechol Chloride 25 mg 04/11/20 14:00 04/13/20 14:07 Urecholine - PO 25 mg TID ÁLVARO Administration Oxycodone HCl 5 mg 04/11/20 11:29 04/11/20 20:49 Roxicodone - PO 5 mg Q30M PRN Administration PAIN Tamsulosin HCl 0.8 mg 04/12/20 08:30 04/13/20 09:08 Flomax - PO 0.8 mg DAILY@0830 ÁLVARO Administration Discharge Medications Medication Instructions Recorded Aspirin [ASA -] 81 mg PO DAILY #30 tab.chew 03/24/20 Bethanechol Chloride [Bethanechol 25 mg PO TID #45 tablet 03/24/20 Chloride -] Tamsulosin HCl [Flomax -] 0.8 mg PO DAILY@0830 #30 cap.er.24h 03/24/20 Atorvastatin Ca [Lipitor] 40 mg PO HS #30 tablet 04/12/20 ASSESSMENT AND PLAN: 79 year old male with history of BPH s/p TURP/Chan (after failing TOVx3), s/p inguinal hernia repair (Dr. Sheng Coker, 03/09/2020), brought to ED after missing out on outpatient follow up with Urology. Recent admission for Acute Metabolic Encephalopathy secondary to Uremia/Dehydration with MAXWELL and obstructive Uropathy. 1. Acute UTI in setting of indwelling chan for Neurogenic Bladder s/p TURP/Chan (due to failing TOV) Renal US - large prostate, normal kidneys. POD 2 s/p Cystosopy and Suprapubic Cystostomy Continue Tamsulosin 0.8 and Bethanecol Urine Cx positive for Ecoli and Enterococcus Completed Rocephin/Amoxicillin - no further Abx required as per ID PT Urology follow up on discharge 2. 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 3. Cerebrovascular Disease - chronic infarcts on CT Head/MRI Brain - started on Aspirin/Statin on last admission. 4. RML opacity on CT, likely atelectasis, no infective symptoms - recommend incentive spirometer and out-patient follow up with repeat CT and Pulmonary referral on discharge. Medically stable for discharge with VNS for suprapubic catheter care.
== END 2020-04-13 15:11 | disposition home or self-care (01) | DRG 663 ==
LOC: JER 10:57 → JERBED 17:22 → J4S 22:41 → J7W 04-07 11:46
PROC: 0T9B00Z Drainage of Bladder with Drainage Device, Open Approach (ICD-10-PCS; principal; 2020-04-11 10:00)
DX: T83.511A Infection and inflammatory reaction due to indwelling urethral catheter, initial encounter (principal); E46 Unspecified protein-calorie malnutrition; J98.11 Atelectasis; N39.0 Urinary tract infection, site not specified; Z68.20 Body mass index [BMI] 20.0-20.9, adult; R62.7 Adult failure to thrive; Y82.8 Other medical devices associated with adverse incidents; N31.9 Neuromuscular dysfunction of bladder, unspecified; M50.11 Cervical disc disorder with radiculopathy, high cervical region; N40.1 Benign prostatic hyperplasia with lower urinary tract symptoms; R33.8 Other retention of urine; R31.9 Hematuria, unspecified; I69.30 Unspecified sequelae of cerebral infarction
CPT/HCPCS: 36415; 71045-TC-FY; 76775-TC; 76856-TC; 80048; 80053; 81003; 82550; 82553; 83735; 84100; 84443; 84484; 85025; 85027; 85610; 85730; 87086; 87186; 93005; 93010; 94760; 97116-GP; 97161-GP; 99285-25; J1644; U0003

== ENCOUNTER 2020-06-23 08:35 | Emergency (ER) | payer OTHER ==
[2020-06-23 09:24] VITALS: BP 148/89; PULSE 90; TEMP 97.9; BMI 25.1
== END 2020-06-23 09:34 | disposition home or self-care (01) ==
LOC: JER 08:35
DX: Z46.6 Encounter for fitting and adjustment of urinary device (principal); Z48.00 Encounter for change or removal of nonsurgical wound dressing
CPT/HCPCS: 99281-25

== ENCOUNTER 2021-08-29 15:00 | Observation (INO) | payer OTHER ==
[2021-08-29 18:36] LABS: BASO % 0.5 % (0-2.0); EOS % 3.5 % (0-4.5); HEMATOCRIT 37.3 % (35.4-49); HEMOGLOBIN 12.6 GM/dL (11.7-16.9); MCH 29.7 pg (25.7-33.7); MCHC 33.9 g/dl (32.0-35.9); MEAN CELL VOLUME 87.7 fl (80-96); MEAN PLT VOLUME 8.3 fl (7.5-11.1); MONO % 10.8 % (3.8-10.2); NEUT % 64.2 % (42.8-82.8); PLATELET COUNT 223 10^3/uL (134-434); RBC 4.25 M/mm3 (4.00-5.60); RDW 14.7 % (11.9-15.9); WHITE BLOOD COUNT 5.1 K/mm3 (4.0-10.0)
[2021-08-29 18:41] LABS: INR 1.09 (0.83-1.09); PROTHROMBIN TIME (PATIENT) 12.5 SEC (9.7-13.0)
[2021-08-29 18:44] LABS: ACTIVATED PTT 27.2 SECONDS (25.2-36.5)
[2021-08-29 18:49] LABS: BLOOD UREA NITROGEN 26.6 mg/dL (7-18); CALCIUM 9.3 mg/dL (8.5-10.1)
[2021-08-29 18:50] LABS: ALBUMIN 3.6 g/dl (3.4-5.0)
[2021-08-29 18:53] LABS: CREATININE 0.9 mg/dL (0.55-1.3)
[2021-08-29 18:54] LABS: BILIRUBIN,TOTAL 0.4 mg/dL (0.2-1); TOT PROT 6.9 g/dl (6.4-8.2)
[2021-08-29 20:32] LABS: URINE APPEARANCE CLEAR; URINE BILIRUBIN NEGATIVE (NEGATIVE); URINE COLOR YELLOW; URINE GLUCOSE (UA) NEGATIVE (NEGATIVE); URINE KETONE NEGATIVE (NEGATIVE); URINE LEUK ESTERASE NEGATIVE (NEGATIVE); URINE NITRITE NEGATIVE (NEGATIVE); URINE PROTEIN NEGATIVE (NEGATIVE); URINE UROBILINOGEN 0.2 mg/dL (0.2-1.0)
[2021-08-29] MEDS ORDERED: ACETAMINOPHEN 325 MG TABLET (FP) PO PRN (22:33)
[2021-08-30 03:30] VITALS: BMI 27.7
[2021-08-30 08:25] LABS: HEMATOCRIT 38.5 % (35.4-49); HEMOGLOBIN 12.7 GM/dL (11.7-16.9); MCH 29.2 pg (25.7-33.7); MCHC 32.9 g/dl (32.0-35.9); MEAN CELL VOLUME 88.7 fl (80-96); PLATELET COUNT 215 10^3/uL (134-434); RBC 4.34 M/mm3 (4.00-5.60); RDW 14.9 % (11.9-15.9)
[2021-08-30 08:47] LABS: CALCIUM 8.5 mg/dL (8.5-10.1)
[2021-08-30 08:49] LABS: BLOOD UREA NITROGEN 21.6 mg/dL (7-18); MAGNESIUM 2.1 mg/dL (1.8-2.4)
[2021-08-30 08:51] LABS: PHOSPHOROUS 4.2 mg/dL (2.5-4.9)
[2021-08-30 08:55] VITALS: BP 141/82; PULSE 91; TEMP 98.3
== END 2021-08-30 14:43 | disposition home or self-care (01) ==
LOC: JER 15:00 → JERBED 20:54 → J6S 08-30 03:10
PROVIDERS: ADMIT Hospitalist; ATTEND Nurse Practitioner Acute Care
DX: S30.1XXA Contusion of abdominal wall, initial encounter (principal); X58.XXXA Exposure to other specified factors, initial encounter; Y93.89 Activity, other specified; Y92.89 Other specified places as the place of occurrence of the external cause; N40.0 Benign prostatic hyperplasia without lower urinary tract symptoms
CPT/HCPCS: 36415; 71260-TC; 74177-TC; 80048; 80053; 81003; 83735; 84100; 85025; 85027; 85610; 85730; 86850; 86900; 86901; 87086; 93005; 93010; 99285-25; C9803; G0378; Q9967; U0003; U0005

== ENCOUNTER 2021-11-07 18:00 | Inpatient (IN) | payer OTHER ==
[2021-11-07 18:58] VITALS: BMI 27.8
[2021-11-07 21:15] LABS: BASO % 0.3 % (0-2.0); HEMATOCRIT 39.3 % (35.4-49); HEMOGLOBIN 13.2 GM/dL (11.7-16.9); LYMPH % 6.7 % (8-40); MCH 28.4 pg (25.7-33.7); MCHC 33.5 g/dl (32.0-35.9); MEAN CELL VOLUME 84.8 fl (80-96); MEAN PLT VOLUME 7.9 fl (7.5-11.1); MONO % 9.5 % (3.8-10.2); NEUT % 83.5 % (42.8-82.8); PLATELET COUNT 175 10^3/uL (134-434); RBC 4.63 M/mm3 (4.00-5.60); RDW 14.4 % (11.9-15.9); WHITE BLOOD COUNT 5.9 K/mm3 (4.0-10.0)
[2021-11-07 21:31] LABS: CALCIUM 8.2 mg/dL (8.5-10.1)
[2021-11-07 21:32] LABS: ALBUMIN 3.4 g/dl (3.4-5.0); BLOOD UREA NITROGEN 20.3 mg/dL (7-18)
[2021-11-07 21:35] LABS: CREATININE 0.9 mg/dL (0.55-1.3)
[2021-11-07 21:36] LABS: BILIRUBIN,TOTAL 0.7 mg/dL (0.2-1)
[2021-11-07 21:53] LABS: EPI CELLS 4 /uL (0-25.1); HYALINE CASTS 2 /uL (0-3.1); URINE APPEARANCE CLEAR; URINE BACTERIA 10 /uL (0-1359); URINE BILIRUBIN NEGATIVE (NEGATIVE); URINE COLOR YELLOW; URINE GLUCOSE (UA) NEGATIVE (NEGATIVE); URINE KETONE 2+ (NEGATIVE); URINE LEUK ESTERASE NEGATIVE (NEGATIVE); URINE NITRITE NEGATIVE (NEGATIVE); URINE PROTEIN 1+ (NEGATIVE); URINE RBC 21 /uL (0-23.9); URINE WBC 5 /uL (0-25.8)
[2021-11-08] MEDS ORDERED: LACTATED RINGERS SOLUTION 1,000 ML/1,000 ML INFUS.BAG IV SCH ×2 (01:45)
[2021-11-08 06:34] LABS: BASO % 0.3 % (0-2.0); EOS % 0.5 % (0-4.5); HEMATOCRIT 37.5 % (35.4-49); HEMOGLOBIN 12.4 GM/dL (11.7-16.9); LYMPH % 20.4 % (8-40); MCH 28.1 pg (25.7-33.7); MEAN CELL VOLUME 84.9 fl (80-96); MEAN PLT VOLUME 7.8 fl (7.5-11.1); MONO % 11.5 % (3.8-10.2); NEUT % 67.3 % (42.8-82.8); PLATELET COUNT 181 10^3/uL (134-434); RBC 4.42 M/mm3 (4.00-5.60); RDW 14.3 % (11.9-15.9); WHITE BLOOD COUNT 4.2 K/mm3 (4.0-10.0)
[2021-11-08 06:56] LABS: BLOOD UREA NITROGEN 20.5 mg/dL (7-18)
[2021-11-08 06:57] LABS: ALBUMIN 3.2 g/dl (3.4-5.0); MAGNESIUM 1.9 mg/dL (1.8-2.4)
[2021-11-08 07:00] LABS: CREATININE 0.8 mg/dL (0.55-1.3); PHOSPHOROUS 2.9 mg/dL (2.5-4.9)
[2021-11-08 07:01] LABS: BILIRUBIN,TOTAL 0.6 mg/dL (0.2-1); TOT PROT 6.5 g/dl (6.4-8.2)
[2021-11-08] MEDS: TAMSULOSIN HCL 0.4 MG CAP PO SCH (10:56)
[2021-11-08] MEDS: ASPIRIN 81 MG CHEWABLE TABLETS PO SCH (10:56)
[2021-11-08] MEDS: ENOXAPARIN NA (PORCINE) 40 MG/0.4 ML DISP.SYRIN SQ SCH (10:57)
[2021-11-08] MEDS ORDERED: SODIUM CHLORIDE 1,000 ML IV SCH (13:30)
[2021-11-08] MEDS: BETHANECHOL CHLORIDE 25 MG TABLET PO SCH ×2 (14:56→22:40)
[2021-11-08] MEDS ORDERED: REMDESIVIR 200 MG in SODIUM CHLORIDE 250 ML IVPB ONE (15:00)
[2021-11-08] MEDS: ATORVASTATIN CA 40 MG TABLET (FP) PO SCH (22:40)
[2021-11-09] MEDS: BETHANECHOL CHLORIDE 25 MG TABLET PO SCH ×3 (06:22→22:07)
[2021-11-09 08:30] LABS: BASO % 0.2 % (0-2.0); HEMATOCRIT 31.6 % (35.4-49); HEMOGLOBIN 10.7 GM/dL (11.7-16.9); LYMPH % 18.7 % (8-40); MCH 28.5 pg (25.7-33.7); MCHC 33.8 g/dl (32.0-35.9); MEAN CELL VOLUME 84.4 fl (80-96); MEAN PLT VOLUME 7.5 fl (7.5-11.1); MONO % 13.6 % (3.8-10.2); NEUT % 65.5 % (42.8-82.8); PLATELET COUNT 164 10^3/uL (134-434); RBC 3.74 M/mm3 (4.00-5.60)
[2021-11-09 08:57] LABS: ALBUMIN 2.6 g/dl (3.4-5.0); BLOOD UREA NITROGEN 23.3 mg/dL (7-18); CALCIUM 7.3 mg/dL (8.5-10.1); MAGNESIUM 1.7 mg/dL (1.8-2.4)
[2021-11-09 09:00] LABS: CREATININE 0.7 mg/dL (0.55-1.3)
[2021-11-09 09:02] LABS: BILIRUBIN,TOTAL 0.6 mg/dL (0.2-1); TOT PROT 5.5 g/dl (6.4-8.2)
[2021-11-09] MEDS: TAMSULOSIN HCL 0.4 MG CAP PO SCH (10:08)
[2021-11-09] MEDS: ASPIRIN 81 MG CHEWABLE TABLETS PO SCH (10:09)
[2021-11-09] MEDS: ENOXAPARIN NA (PORCINE) 40 MG/0.4 ML DISP.SYRIN SQ SCH (10:09)
[2021-11-09] MEDS: REMDESIVIR 100 MG in SODIUM CHLORIDE 250 ML IVPB SCH (14:41)
[2021-11-09] MEDS: ATORVASTATIN CA 40 MG TABLET (FP) PO SCH (22:09)
[2021-11-10] MEDS: BETHANECHOL CHLORIDE 25 MG TABLET PO SCH ×3 (06:42→21:38)
[2021-11-10] MEDS: TAMSULOSIN HCL 0.4 MG CAP PO SCH (08:28)
[2021-11-10 08:33] LABS: BASO % 0.3 % (0-2.0); EOS % 2.5 % (0-4.5); HEMATOCRIT 33.4 % (35.4-49); LYMPH % 20.7 % (8-40); MCH 27.9 pg (25.7-33.7); MEAN CELL VOLUME 84.6 fl (80-96); MEAN PLT VOLUME 7.8 fl (7.5-11.1); MONO % 13.2 % (3.8-10.2); NEUT % 63.3 % (42.8-82.8); PLATELET COUNT 191 10^3/uL (134-434); RBC 3.94 M/mm3 (4.00-5.60); RDW 14.4 % (11.9-15.9); WHITE BLOOD COUNT 3.6 K/mm3 (4.0-10.0)
[2021-11-10 08:58] LABS: CALCIUM 7.7 mg/dL (8.5-10.1)
[2021-11-10 08:59] LABS: ALBUMIN 2.7 g/dl (3.4-5.0); BLOOD UREA NITROGEN 17.2 mg/dL (7-18); MAGNESIUM 1.9 mg/dL (1.8-2.4)
[2021-11-10 09:01] LABS: CREATININE 0.7 mg/dL (0.55-1.3)
[2021-11-10 09:02] LABS: BILIRUBIN,TOTAL 0.5 mg/dL (0.2-1); TOT PROT 5.7 g/dl (6.4-8.2)
[2021-11-10] MEDS: ASPIRIN 81 MG CHEWABLE TABLETS PO SCH (10:26)
[2021-11-10] MEDS: ENOXAPARIN NA (PORCINE) 40 MG/0.4 ML DISP.SYRIN SQ SCH (10:26)
[2021-11-10] MEDS: REMDESIVIR 100 MG in SODIUM CHLORIDE 250 ML IVPB SCH (14:48)
[2021-11-10] MEDS: ATORVASTATIN CA 40 MG TABLET (FP) PO SCH (21:38)
[2021-11-11] MEDS: BETHANECHOL CHLORIDE 25 MG TABLET PO SCH ×4 (06:13→22:06)
[2021-11-11 08:17] LABS: ALBUMIN 2.8 g/dl (3.4-5.0)
[2021-11-11 08:18] LABS: BLOOD UREA NITROGEN 18.1 mg/dL (7-18); MAGNESIUM 1.9 mg/dL (1.8-2.4)
[2021-11-11 08:19] LABS: BASO % 0.2 % (0-2.0); EOS % 2.8 % (0-4.5); HEMATOCRIT 35.9 % (35.4-49); HEMOGLOBIN 11.7 GM/dL (11.7-16.9); LYMPH % 19.9 % (8-40); MCH 27.5 pg (25.7-33.7); MCHC 32.5 g/dl (32.0-35.9); MEAN CELL VOLUME 84.5 fl (80-96); MEAN PLT VOLUME 7.9 fl (7.5-11.1); MONO % 8.9 % (3.8-10.2); NEUT % 68.2 % (42.8-82.8); PLATELET COUNT 218 10^3/uL (134-434); RBC 4.25 M/mm3 (4.00-5.60); RDW 14.3 % (11.9-15.9); WHITE BLOOD COUNT 4.1 K/mm3 (4.0-10.0)
[2021-11-11 08:20] LABS: CREATININE 0.7 mg/dL (0.55-1.3)
[2021-11-11 08:22] LABS: BILIRUBIN,TOTAL 0.4 mg/dL (0.2-1); TOT PROT 5.9 g/dl (6.4-8.2)
[2021-11-11] MEDS: TAMSULOSIN HCL 0.4 MG CAP PO SCH (09:46)
[2021-11-11] MEDS: ENOXAPARIN NA (PORCINE) 40 MG/0.4 ML DISP.SYRIN SQ SCH (09:46)
[2021-11-11] MEDS: ASPIRIN 81 MG CHEWABLE TABLETS PO SCH (09:47)
[2021-11-11] MEDS: ATORVASTATIN CA 40 MG TABLET (FP) PO SCH (22:06)
[2021-11-12] MEDS: BETHANECHOL CHLORIDE 25 MG TABLET PO SCH ×2 (05:57→13:37)
[2021-11-12] MEDS ORDERED: traMADol HCL 50 MG TABLET PO PRN (08:21)
[2021-11-12] MEDS: TAMSULOSIN HCL 0.4 MG CAP PO SCH (09:09)
[2021-11-12] MEDS: ASPIRIN 81 MG CHEWABLE TABLETS PO SCH (09:10)
[2021-11-12] MEDS: ENOXAPARIN NA (PORCINE) 40 MG/0.4 ML DISP.SYRIN SQ SCH (09:10)
[2021-11-12] MEDS ORDERED: AZITHROMYCIN IVPB 500 MG/250 ML BAG IVPB SCH (11:00)
[2021-11-12 14:04] VITALS: BP 140/80; PULSE 73; TEMP 98.3
[2021-11-13] MEDS ORDERED: AMOX TR/POT CLAV 875MG/125MG TABLETS (FP) PO SCH (10:00)
[2021-11-13] MEDS ORDERED: AZITHROMYCIN IVPB 500 MG/250 ML BAG IVPB SCH (10:00)
== END 2021-11-12 15:08 | disposition home health service (06) | DRG 177 ==
LOC: JER 18:00 → JERBED 22:47 → OBSVTOIN 11-08 00:14 → J8W 11-08 06:21
PROVIDERS: ADMIT Hospitalist; ATTEND Nurse Practitioner Acute Care
PROC: XW033E5 Introduction of Remdesivir Anti-infective into Peripheral Vein, Percutaneous Approach, New Technology Group 5 (ICD-10-PCS; principal; 2021-11-08)
DX: U07.1 COVID-19 (principal); J12.82 Pneumonia due to coronavirus disease 2019; M62.82 Rhabdomyolysis; N40.0 Benign prostatic hyperplasia without lower urinary tract symptoms; M79.81 Nontraumatic hematoma of soft tissue; E78.5 Hyperlipidemia, unspecified; R53.1 Weakness; J20.9 Acute bronchitis, unspecified
CPT/HCPCS: 36415; 70450-TC; 71045-TC-FY; 80053; 81003; 82533; 82550; 82553; 83036; 83735; 84100; 84439; 84443; 85025; 85379; 85651; 86140; 87070; 87205; 87804; 93005; 93010; 97116-GP; 97161-GP; 99285-25; C9399; C9803-CS; G0378; U0003; U0005

== ENCOUNTER 2022-02-26 04:25 | Day surgery (SDC) | payer OTHER ==
[2022-02-22 11:42] VITALS: BMI 27.1
[2022-02-26 09:14] VITALS: RESP 20
[2022-02-26 11:48] VITALS: TEMP 98.8
[2022-02-26 11:50] VITALS: BP 128/82; PULSE 62
== END 2022-02-26 12:30 | disposition home or self-care (01) ==
LOC: JRADIR 04:25
PROVIDERS: ATTEND Surgery
PROC: 0JB60ZX Excision of Chest Subcutaneous Tissue and Fascia, Open Approach, Diagnostic (ICD-10-PCS; principal; 2022-02-26)
DX: M72.8 Other fibroblastic disorders (principal); D36.7 Benign neoplasm of other specified sites
CPT/HCPCS: 21550; 76942-TC; 87899; 88305-TC

== ENCOUNTER 2024-09-25 11:00 | Emergency (ER) | payer OTHER ==
[2024-09-25 12:11] VITALS: RESP 18; TEMP 98; BMI 24.7
[2024-09-25] MEDS ORDERED: ACETAMINOPHEN INJECTION 100 ML ONE (12:17)
[2024-09-25] MEDS ORDERED: ONDANSETRON 4 MG/2 ML VIAL ONE (12:17)
[2024-09-25] MEDS ORDERED: FAMOTIDINE 20 MG/50 ML IVPB 20 MG/50 ML MG IVPB ONE (12:18)
[2024-09-25] MEDS: ACETAMINOPHEN 500 MG TABLET (FP) PO ONE (13:10)
[2024-09-25] MEDS: ONDANSETRON 4 MG TABLET PO ONE (13:10)
[2024-09-25] MEDS: FAMOTIDINE 20 MG TABLET PO ONE (13:27)
[2024-09-25 13:56] LABS: BASO % 0.3 % (0-2.0); EOS % 1.8 % (0-4.5); HEMOGLOBIN 13.2 GM/dL (11.7-16.9); MCH 30.9 pg (25.7-33.7); MCHC 33.7 g/dl (32.0-35.9); MEAN CELL VOLUME 91.7 fl (80-96); MEAN PLT VOLUME 8.1 fl (7.5-11.1); MONO % 7.2 % (3.8-10.2); NEUT % 83.7 % (42.8-82.8); PLATELET COUNT 175 10^3/uL (134-434); RBC 4.25 M/mm3 (4.00-5.60); RDW 14.1 % (11.9-15.9); WHITE BLOOD COUNT 6.6 K/mm3 (4.0-10.0)
[2024-09-25 14:04] LABS: INR 1.12 (0.83-1.09); PROTHROMBIN TIME (PATIENT) 12.2 SEC (9.7-13.0)
[2024-09-25 14:06] LABS: ACTIVATED PTT 28.7 SECONDS (25.2-36.5)
[2024-09-25 14:12] LABS: POTASSIUM 4.6 mmol/L (3.5-5.1)
[2024-09-25 14:13] LABS: CALCIUM 8.8 mg/dL (8.5-10.1)
[2024-09-25 14:14] LABS: ALBUMIN 3.6 g/dl (3.4-5.0); BLOOD UREA NITROGEN 28.6 mg/dL (7-18)
[2024-09-25 14:17] LABS: CREATININE 0.9 mg/dL (0.55-1.3)
[2024-09-25 14:19] LABS: BILIRUBIN,TOTAL 0.7 mg/dL (0.2-1); TOT PROT 6.6 g/dl (6.4-8.2)
[2024-09-25 14:21] VITALS: BP 140/75; PULSE 63
== END 2024-09-25 15:01 | disposition home or self-care (01) ==
LOC: JER 11:00
DX: R10.13 Epigastric pain (principal); M53.3 Sacrococcygeal disorders, not elsewhere classified; R11.10 Vomiting, unspecified; R10.2 Pelvic and perineal pain; W01.0XXA Fall on same level from slipping, tripping and stumbling without subsequent striking against object, initial encounter
CPT/HCPCS: 36415; 71046-TC-FY; 72170-TC-FY; 72220-TC-FY; 80053; 84484; 85025; 85610; 85730; 93005; 93010; 99285-25

== ENCOUNTER 2024-10-26 05:26 | Day surgery (SDC) | payer OTHER ==
[2024-10-19 13:52] VITALS: BMI 24.7
[2024-10-26] MEDS ORDERED: PROPOFOL 20 ML ONE (07:41)
[2024-10-26] MEDS ORDERED: MIDAZOLAM HCL 2 MG/2 ML SINGLE DOSE VIAL ONE ×2 (07:42→08:10)
[2024-10-26] MEDS ORDERED: ONABOTULINUMTOXINA 200 UNIT/VIAL VIAL NR ONE (07:45)
[2024-10-26] MEDS ORDERED: BOTULINUM TOXIN A 100 UNITS VIAL NR ONE (08:00)
[2024-10-26] MEDS ORDERED: ONDANSETRON 4 MG/2 ML VIAL ONE (08:31)
[2024-10-26] MEDS ORDERED: DEXAMETHASONE SOD PHOSPHATE 4 MG/1 ML VIAL ONE (08:31)
[2024-10-26] MEDS ORDERED: ONDANSETRON 4 MG/2 ML VIAL IVPUSH PRN (09:16)
[2024-10-26] MEDS ORDERED: LACTATED RINGERS SOLUTION 1,000 ML IV SCH (09:30)
[2024-10-26 12:34] VITALS: RESP 18
[2024-10-26 18:06] VITALS: BP 136/80; PULSE 84; TEMP 97.4
== END 2024-10-26 17:40 | disposition home or self-care (01) ==
LOC: JASU-SURG 05:26
PROVIDERS: ATTEND Surgery
PROC: 3E023TZ Introduction of Destructive Agent into Muscle, Percutaneous Approach (ICD-10-PCS; principal; 2024-10-26 08:00)
DX: D48.113 Desmoid tumor of abdominal wall (principal); I10 Essential (primary) hypertension; E11.9 Type 2 diabetes mellitus without complications
CPT/HCPCS: 82962; 94760; J0585